=== PATIENT | male | born 1930 | race Caucasian/White ===

== ENCOUNTER 2016-11-14 22:08 | Inpatient (IN) | payer MEDICARE, MEDICAID ==
[~2016-11-14] VITALS: Ht 167.6 cm; Wt 79.4 kg
[2016-11-14 22:01] VITALS: BP 131/66
[2016-11-14] MEDS ORDERED: Acetaminophen 500mg (ES) tab ORAL ONE (22:15)
--- NOTE | 2016-11-14 22:18 | Emergency Room Report ---
History of Present Illness General Chief Complaint: Dyspnea/Respdistress Source: Patient, Family Member, EMS Present Illness HPI Is an 86-year-old [place] speaking male with a history diabetes and hypertension. He also has a coronary disease. He presents with chief complaint of shortness of breath and fever and chills. Onset acutely today at 3 PM. Prescribe shaking chills and body pain. [place] short of breath. No chest pain. No cough. No nausea or vomiting. No diarrhea. [place] weak. Did not get flu shot. Allergies: Coded Allergies: No Known Allergies (Verified , 02/18/10) Patient History Past Medical History: see triage record, old chart reviewed, DM, HTN, CAD Past Surgical History: CABG, other Pertinent Family History: none Social History: Denies: smoking Immunizations: other Reviewed Nursing Documentation: PMH: Agreed, PSxH: Agreed Nursing Documentation-PMH Hx Cardiac Problems: Yes Hx Hypertension: Yes Hx Asthma: Yes Hx Diabetes: Yes Review of Systems Constitutional: Reports: fever, malaise, weakness Eye: Denies: blurred vision, eye pain ENT: Denies: ear pain, nose congestion, throat swelling Respiratory: Reports: shortness of breath Cardiovascular: Denies: chest pain, palpitations Gastrointestinal: Denies: abdominal pain, diarrhea, nausea, vomiting Musculoskeletal: Denies: back pain, joint pain Skin: Denies: rash Neurological: Denies: headache, numbness Endocrine: Denies: increased thirst, increased urine Hematologic/Lymphatic: Denies: easy bruising All Other Systems: negative except mentioned in HPI Physical Exam Vital Signs Date Time Temp Pulse Resp B/P Pulse Ox O2 Delivery O2 Flow Rate FiO2 11/14/16 21:55 99.7 66 18 131/66 98 Non-Rebreather 15.0 11/14/16 22:01 94 vitals with low-grade fever Sp02 EP Interpretation: reviewed, normal General Appearance: no apparent distress, alert, mild distress - Ill-appearing , obese Head: normocephalic, atraumatic Eyes: bilateral eye EOMI, bilateral eye PERRL ENT: hearing grossly normal, normal pharynx Neck: full range of motion, supple, no meningismus Respiratory: chest non-tender, lungs clear, normal breath sounds Cardiovascular #1: regular rate, rhythm, no murmur Gastrointestinal: normal bowel sounds, non tender, no mass, no organomegaly, no bruit, non-distended Musculoskeletal: back normal, gait/station normal, normal range of motion Psychiatric: mood/affect normal Skin: warm/dry Medical Decision Making Diagnostic Impression: Primary Impression: Sepsis Qualified Codes: A41.9 - Sepsis, unspecified organism Additional Impressions: Pneumonia Qualified Codes: J18.9 - Pneumonia, unspecified organism Chronic kidney disease Qualified Codes: N18.9 - Chronic kidney disease, unspecified Hyperglycemia due to type 2 diabetes mellitus Qualified Codes: E11.65 - Type 2 diabetes mellitus with hyperglycemia ER Course Patient presents with sepsis secondary to pneumonia. May have influenza since it is the season. Influenza test is negative. He felt better now. Lactic acid coming down. Mentation normal. Will admit. Lab Results Impression labs show leukocytosis EKG Diagnostic Results Rate: normal Rhythm: NSR ST Segments: no acute changes Rhythm Strip Diag. Results EP Interpretation: yes Rate: 80 Rhythm: NSR, no PVC's, no ectopy Chest X-Ray Diagnostic Results EP Interpretation: Yes Findings: no effusion, no pneumothorax, other - Right lower lobe infiltrate Number of Views: 1 Last Vital Signs Date Time Temp Pulse Resp B/P Pulse Ox O2 Delivery O2 Flow Rate FiO2 11/14/16 22:01 99.7 66 18 131/66 94 Room Air 11/14/16 22:01 94 11/14/16 21:55 15.0 Status: improved Disposition: ADMITTED INPATIENT Condition: Serious DONALD PETERSEN M.D. Nov 14, 2016 22:18
[2016-11-14 22:38] LABS: MEAN CORPUSCULAR HGB CONC 33.3 G/DL (32.0-36.0); MEAN CORPUSCULAR VOLUME 93 FL (80-99); MEAN PLATELET VOLUME 9.2 FL (6.5-10.1); PLATELET COUNT 178 K/UL (150-450); RED BLOOD COUNT 4.15 M/UL (4.70-6.10); RED CELL DISTRIBUTION WIDTH 12.6 % (11.6-14.8); WHITE BLOOD COUNT 19.5 K/UL (4.8-10.8)
[2016-11-14 22:47] LABS: PROTHROMBIN TIME 10.3 SEC (9.30-11.50)
[2016-11-14 22:53] LABS: TROPONIN I < 0.30 ng/mL (<=0.30)
[2016-11-14 23:00] VITALS: BP 133/49
[2016-11-14 23:02] LABS: REFLEX LACTIC ACID YES OR NO YES
[2016-11-14 23:09] LABS: ALANINE AMINOTRANSFERASE 31 U/L (3-41); ALBUMIN/GLOBULIN RATIO 1.4 (1.0-2.7); ANION GAP 21 (5-15); ASPARTATE AMINO TRANSFERASE 26 U/L (5-40); CALCIUM 9.3 mg/dL (8.6-10.2); CARBON DIOXIDE 20 mEQ/L (20-30); CHLORIDE 92 mEQ/L (98-107); CREATININE 1.9 mg/dL (0.7-1.2); HEMOLYSIS 9; SODIUM 133 mEQ/L (135-145)
[2016-11-14 23:16] LABS: APPEARANCE,URINE CLEAR; KETONES,URINE NEGATIVE (NEGATIVE); LEUKOCYTE ESTERASE ,URINE 1+ (NEGATIVE); NITRITE,URINE NEGATIVE (NEGATIVE); PH,URINE 5 (4.5-8.0); PROTEIN,URINE 1+ (NEGATIVE); UROBILINOGEN,URINE NORMAL MG/DL (0.0-1.0)
[2016-11-14 23:19] LABS: CKMB 1.5 ng/mL (< 6.7)
[2016-11-14] MEDS ORDERED: cefTRIAXone 1 GM in NS 55 ML IVPB ONE (23:30)
[2016-11-14] MEDS ORDERED: Azithromycin 250mg tab ORAL ONE (23:30)
[2016-11-14 23:36] LABS: BAND NEUTROPHILS % (MANUAL) 7 % (0-8); LYMPHOCYTES % (MANUAL) 3 % (20-45); NEUTROPHILS % (MANUAL) 87 % (45-75); TOTAL CELLS COUNTED 100
[2016-11-14 23:37] LABS: BASOPHILS % (MANUAL) 0 % (0-2); EOSINOPHILS % (MANUAL) 0 % (0-3); PLATELET ESTIMATE ADEQUATE
[2016-11-14 23:38] LABS: PLATELET MORPHOLOGY NORMAL; POLYCHROMASIA 1+
[2016-11-15] VITALS: BP 116/43
[2016-11-15 01:00] VITALS: BP 100/55
[2016-11-15 04:00] VITALS: BP 108/56
[2016-11-15] MEDS ORDERED: D5 1/2NS 1,000 ML IV SCH (04:15)
[2016-11-15] MEDS ORDERED: cefTRIAXone 1 GM in D5W 55 ML IVPB SCH (04:15)
[2016-11-15] MEDS ORDERED: cefTRIAXone 1 GM in D5W 50 ML IVPB SCH (04:30)
[2016-11-15] MEDS: NovoLOG Insulin Flexpen SUBQ SCH ×4 (07:35→19:42)
[2016-11-15 08:00] VITALS: BP 107/60
[2016-11-15] MEDS: Azithromycin 250mg tab ORAL SCH ×2 (09:58→16:57)
[2016-11-15] MEDS: D5NS 1,000 ML IV SCH ×2 (09:59→21:58)
[2016-11-15] MEDS: Heparin 5000 units/ml inj SUBQ SCH ×2 (10:01→19:42)
[2016-11-15 10:05] LABS: MEAN CORPUSCULAR HEMOGLOBIN 30.6 PG (27.0-31.0); MEAN CORPUSCULAR HGB CONC 33.5 G/DL (32.0-36.0); MEAN CORPUSCULAR VOLUME 91 FL (80-99); MEAN PLATELET VOLUME 10.2 FL (6.5-10.1); PLATELET COUNT 137 K/UL (150-450); RED CELL DISTRIBUTION WIDTH 12.5 % (11.6-14.8); WHITE BLOOD COUNT 18.5 K/UL (4.8-10.8)
[2016-11-15 10:17] LABS: ALANINE AMINOTRANSFERASE 23 U/L (3-41); ALBUMIN/GLOBULIN RATIO 1.3 (1.0-2.7); ANION GAP 13 (5-15); ASPARTATE AMINO TRANSFERASE 24 U/L (5-40); CALCIUM 8.5 mg/dL (8.6-10.2); CARBON DIOXIDE 21 mEQ/L (20-30); CHLORIDE 98 mEQ/L (98-107); CREATININE 1.7 mg/dL (0.7-1.2); HEMOLYSIS 52; MAGNESIUM 1.8 mg/dL (1.7-2.5); POTASSIUM 4.7 mEQ/L (3.4-4.9); SODIUM 132 mEQ/L (135-145); TOTAL PROTEIN 6.1 g/dL (6.6-8.7)
[2016-11-15 10:33] LABS: BAND NEUTROPHILS % (MANUAL) 2 % (0-8); BASOPHILS % (MANUAL) 0 % (0-2); EOSINOPHILS % (MANUAL) 1 % (0-3); HYPOCHROMASIA 1+; LYMPHOCYTES % (MANUAL) 4 % (20-45); NEUTROPHILS % (MANUAL) 86 % (45-75); PLATELET ESTIMATE ADEQUATE; PLATELET MORPHOLOGY NORMAL; TOTAL CELLS COUNTED 100
--- NOTE | 2016-11-15 11:30 | Diagnostic Imaging Report ---
Indication: Dyspnea Comparison: 02/18/10 A single view chest radiograph was obtained. Findings: There is infiltrate versus atelectasis involving the right lung base. In addition pulmonary vascularity appears prominent. Sternotomy is noted. Heart size is normal. The bones are osteopenic. Impression: Right basilar infiltrate versus atelectasis. Borderline congestive heart failure
[2016-11-15 12:00] VITALS: BP 103/62
[2016-11-15] MEDS ORDERED: Promethazine/Codeine 5ml UD ORAL PRN (15:45)
--- NOTE | 2016-11-15 15:58 | Consultation ---
History of Present Illness General Date patient seen: Nov 15, 2016 Chief Complaint: Dyspnea/Respdistress Referring physician: Dr. grande Reason for Consultation: dysnpea Present Illness HPI 86-year-old Welsh speaking male with a history COPD, diabetes and hypertension and coronary disease. He was brought in by paramedics with chief complaint of shortness of breath and fever and chills. With onset acutely yesterday at 3 PM. Prescribe shaking chills and body pain. Patient was diagnosed with sepsis and pneumonia and admitted for further evaluation. Allergies: Coded Allergies: No Known Allergies (Verified , 02/18/10) Patient History Healthcare decision maker Resuscitation status Full Code Advanced Directive on File Past Medical/Surgical History Past Medical/Surgical History: (1) COPD (chronic obstructive pulmonary disease) (2) HTN (hypertension) (3) CAD (coronary artery disease) Review of Systems All Other Systems: negative except mentioned in HPI Physical Exam General Appearance: WD/WN Lines, tubes and drains: peripheral, central line HEENT: normocephalic, atraumatic Neck: non-tender, normal alignment Respiratory/Chest: chest wall non-tender, lungs clear Cardiovascular/Chest: normal peripheral pulses, normal rate Abdomen: normal bowel sounds Genitourinary/Rectal: normal genital exam Last 24 Hour Vital Signs Date Time Temp Pulse Resp B/P Pulse Ox O2 Delivery O2 Flow Rate FiO2 11/15/16 12:00 98.6 70 19 103/62 95 Nasal Cannula 11/15/16 08:00 97.3 71 20 107/60 95 Nasal Cannula 3.0 11/15/16 07:21 96 Nasal Cannula 2.0 28 11/15/16 07:20 Nasal Cannula 2.0 28 11/15/16 04:00 97.4 68 20 108/56 93 Nasal Cannula 2.0 11/15/16 01:00 97.9 76 20 100/55 93 Nasal Cannula 2.0 11/15/16 00:28 99.4 78 25 116/43 95 Nasal Cannula 2.0 94 11/15/16 00:00 78 25 116/43 95 Nasal Cannula 2.0 11/14/16 23:18 99.4 11/14/16 23:00 88 26 133/49 93 Nasal Cannula 2.0 11/14/16 22:01 99.7 66 18 131/66 94 Room Air 1/16/17 22:01 66 18 Room Air 94 11/14/16 21:55 99.7 66 18 131/66 98 Non-Rebreather 15.0 Intake and Output 11/14/16 11/15/16 19:00 07:00 Intake Total 2055 ml Output Total 650 ml Balance 1405 ml Intake Oral 0 ml IV Total 2055 ml Output Urine Total 650 ml # Voids 1 Laboratory Tests Test 11/14/16 22:25 11/14/16 23:00 11/14/16 23:33 11/15/16 09:40 White Blood Count 19.5 K/UL (4.8-10.8) H 18.5 K/UL (4.8-10.8) H Red Blood Count 4.15 M/UL (4.70-6.10) L 3.60 M/UL (4.70-6.10) L Hemoglobin 12.9 G/DL (14.2-18.0) L 11.0 G/DL (14.2-18.0) L Hematocrit 38.6 % (42.0-52.0) L 32.9 % (42.0-52.0) L Mean Corpuscular Volume 93 FL (80-99) 91 FL (80-99) Mean Corpuscular Hemoglobin 31.0 PG (27.0-31.0) 30.6 PG (27.0-31.0) Mean Corpuscular Hemoglobin Concent 33.3 G/DL (32.0-36.0) 33.5 G/DL (32.0-36.0) Red Cell Distribution Width 12.6 % (11.6-14.8) 12.5 % (11.6-14.8) Platelet Count 178 K/UL (150-450) 137 K/UL (150-450) L Mean Platelet Volume 9.2 FL (6.5-10.1) 10.2 FL (6.5-10.1) H Neutrophils (%) (Auto) % (45.0-75.0) % (45.0-75.0) Lymphocytes (%) (Auto) % (20.0-45.0) % (20.0-45.0) Monocytes (%) (Auto) % (1.0-10.0) % (1.0-10.0) Eosinophils (%) (Auto) % (0.0-3.0) % (0.0-3.0) Basophils (%) (Auto) % (0.0-2.0) % (0.0-2.0) Differential Total Cells Counted 100 100 Neutrophils % (Manual) 87 % (45-75) H 86 % (45-75) H Lymphocytes % (Manual) 3 % (20-45) L 4 % (20-45) L Monocytes % (Manual) 3 % (1-10) 7 % (1-10) Eosinophils % (Manual) 0 % (0-3) 1 % (0-3) Basophils % (Manual) 0 % (0-2) 0 % (0-2) Band Neutrophils 7 % (0-8) 2 % (0-8) Platelet Estimate Adequate Adequate Platelet Morphology Normal Normal Polychromasia 1+ Prothrombin Time 10.3 SEC (9.30-11.50) Prothromb Time International Ratio 1.0 (0.9-1.1) Activated Partial Thromboplast Time 29 SEC (23-33) Sodium Level 133 mEQ/L (135-145) L 132 mEQ/L (135-145) L Potassium Level 5.0 mEQ/L (3.4-4.9) H 4.7 mEQ/L (3.4-4.9) Chloride Level 92 mEQ/L (98-107) L 98 mEQ/L (98-107) Carbon Dioxide Level 20 mEQ/L (20-30) 21 mEQ/L (20-30) Anion Gap 21 (5-15) H 13 (5-15) Blood Urea Nitrogen 29 mg/dL (7-23) H 26 mg/dL (7-23) H Creatinine 1.9 mg/dL (0.7-1.2) H 1.7 mg/dL (0.7-1.2) H Estimat Glomerular Filtration Rate mL/min (>60) mL/min (>60) Glucose Level 180 mg/dL (74-106) H 134 mg/dL (74-106) H Lactic Acid Level 3.00 mmol/L (0.66-2.22) H 2.80 mmol/L (0.66-2.22) H Calcium Level 9.3 mg/dL (8.6-10.2) 8.5 mg/dL (8.6-10.2) L Total Bilirubin 0.4 mg/dL (0.0-1.2) 0.4 mg/dL (0.0-1.2) Aspartate Amino Transf (AST/SGOT) 26 U/L (5-40) 24 U/L (5-40) Alanine Aminotransferase (ALT/SGPT) 31 U/L (3-41) 23 U/L (3-41) Alkaline Phosphatase 66 U/L (40-129) 54 U/L (40-129) Total Creatine Kinase 106 U/L (38-174) Creatine Kinase MB 1.5 ng/mL (< 6.7) Creatine Kinase MB Relative Index 1.4 Troponin I < 0.30 ng/mL (<=0.30) Total Protein 7.0 g/dL (6.6-8.7) 6.1 g/dL (6.6-8.7) L Albumin 4.1 g/dL (3.5-5.2) 3.5 g/dL (3.5-5.2) Globulin 2.9 g/dL 2.6 g/dL Albumin/Globulin Ratio 1.4 (1.0-2.7) 1.3 (1.0-2.7) Urine Color Yellow Urine Appearance Clear Urine pH 5 (4.5-8.0) Urine Specific [place] 1.015 (1.005-1.035) Urine Protein 1+ (NEGATIVE) H Urine Glucose (UA) 4+ (NEGATIVE) H Urine Ketones Negative (NEGATIVE) Urine Occult Blood 4+ (NEGATIVE) H Urine Nitrite Negative (NEGATIVE) Urine Bilirubin Negative (NEGATIVE) Urine Urobilinogen Normal MG/DL (0.0-1.0) Urine Leukocyte Esterase 1+ (NEGATIVE) H Urine RBC 2-4 /HPF (0 - 0) H Urine WBC 2-4 /HPF (0 - 0) Urine Squamous Epithelial Cells None /LPF (NONE/OCC) Urine Bacteria None /HPF (NONE) Hypochromasia 1+ Phosphorus Level 3.0 mg/dL (2.5-4.8) Magnesium Level 1.8 mg/dL (1.7-2.5) Microbiology Date/Time Source Procedure Growth Status 11/14/16 23:45 Nasal Nares Influenza Types A,B Antigen (FRANCHESCA) - Final Complete Height (Feet): 5 Height (Inches): 6.00 Weight (Pounds): 175 Medications Current Medications Medications (Trade) Dose Ordered Sig/Nathan Route PRN Reason Start Time Stop Time Status Last Admin Dose Admin Acetaminophen (Tylenol) 650 mg Q6H PRN ORAL Mild Pain/Temp > 100.5 11/15/16 04:15 12/15/16 04:14 Albuterol/ Ipratropium (DuoNeb 0.5-3(2.5)mg/3ml) 3 ml Q6HRT HHN 11/15/16 19:00 11/20/16 18:59 UNV Azithromycin (Zithromax) 250 mg BID ORAL 11/15/16 09:00 11/22/16 08:59 11/15/16 09:58 Ceftriaxone Sodium 1 gm/ Dextrose 50 ml @ 100 mls/hr Q24H IVPB 11/15/16 23:00 11/22/16 22:59 Dextrose (Dextrose 50%) STAT PRN IV Hypoglycemia 11/15/16 04:15 12/15/16 04:14 Dextrose/Sodium Chloride (D5ns) 1,000 ml @ 75 mls/hr [id number] IV 11/15/16 08:15 12/15/16 08:14 11/15/16 09:59 Heparin Sodium (Porcine) 5000 units 5,000 units EVERY 12 HOURS SUBQ 11/15/16 09:00 12/15/16 08:59 11/15/16 10:01 Insulin Aspart (NovoLOG) BEFORE MEALS AND HS SUBQ 11/15/16 06:30 12/15/16 06:29 11/15/16 07:35 Promethazine HCl/ Codeine (Phenergan with Codeine) 5 ml Q4H PRN ORAL For Cough 11/15/16 15:45 12/15/16 15:44 UNV Theophylline (Soham-Dur) 100 mg EVERY 12 HOURS ORAL 11/15/16 21:00 12/15/16 20:59 UNV Assessment/Plan Problem List: (1) Pneumonia ICD Codes: J18.9 - Pneumonia, unspecified organism SNOMED: 815433566 Qualifiers: Qualified Codes: J18.9 - Pneumonia, unspecified organism (2) Sepsis ICD Codes: A41.9 - Sepsis, unspecified organism SNOMED: 50861291 Qualifiers: Qualified Codes: A41.9 - Sepsis, unspecified organism (3) COPD (chronic obstructive pulmonary disease) ICD Codes: J44.9 - Chronic obstructive pulmonary disease, unspecified SNOMED: 04421344 Qualifiers: Qualified Codes: J44.1 - Chronic obstructive pulmonary disease with (acute) exacerbation (4) CAD (coronary artery disease) ICD Codes: I25.10 - Atherosclerotic heart disease of [place] coronary artery without angina pectoris SNOMED: 85535376 (5) HTN (hypertension) ICD Codes: I10 - Essential (primary) hypertension SNOMED: 88377067 Assessment/Plan check sputum respiratory treatment chest pt incentive spirometry continue abx cxr in a few days dvt prophylaxis OLIVIA WALKER Nov 15, 2016 15:58
[2016-11-15 16:00] VITALS: BP 121/62
[2016-11-15] MEDS ORDERED: guaiFENesin w/Codeine 5ml Liq ud ORAL PRN (19:00)
[2016-11-15] MEDS: Zolpidem 5mg tab ORAL PRN (19:35)
[2016-11-15] MEDS: Theophylline ER 100mg ORAL SCH (19:35)
[2016-11-15] MEDS: DuoNeb 0.5-3(2.5)mg/3ml neb HHN SCH (20:09)
[2016-11-15] MEDS: cefTRIAXone 1 GM in D5W 50 ML IVPB SCH (22:00)
[2016-11-16] VITALS: BP 107/54
--- NOTE | 2016-11-16 00:27 | History and Physical Report ---
DATE OF ADMISSION: 11/14/[address] Medel. CHIEF COMPLAINT: The patient is an 86-year-old Panamanian-speaking white male, who presents with complaint of fever, chills, and cough for one day. HISTORY OF PRESENT ILLNESS: The patient is a Panamanian-speaking only. History and physical was obtained from the patient's chart. The patient attempted to call his daughter who is not available. The patient presented to [facility] complaining of 1-day history of fevers and chills. The patient also has a nonproductive cough. The patient began to experience shortness of breath. The patient was admitted for shortness of breath to rule out pneumonia. PAST MEDICAL HISTORY: Significant for, 1. Chronic obstructive pulmonary disease. 2. Diabetes type 2. 3. Hypertension. 4. Coronary artery disease. PAST SURGICAL HISTORY: Significant for coronary artery bypass graft. CURRENT MEDICATIONS: Unknown. ALLERGIES: No known drug allergies. SOCIAL HISTORY: The patient is and has a grown daughter. The patient denies smoking or alcohol use. REVIEW OF SYSTEMS: Constitutional: The patient denies weight loss or weight gain. The patient complains of subjective fevers and chills as above. HEENT: The patient denies ear or throat pain. The patient denies headache. Cardiovascular: The patient denies palpitations or chest pain. Chest: The patient denies wheezes. The patient does complain of shortness of breath. Abdomen: The patient denies nausea, vomiting, diarrhea, or constipation. Genitourinary: The patient denies dysuria or increased frequency of urination. Neuromuscular: The patient denies seizures or generalized weakness. PHYSICAL EXAMINATION: VITAL SIGNS: Temperature 97.4 degrees, respirations 20, pulse 68, and blood pressure 108/60. GENERAL: The patient is a well-developed, well-nourished white male, in no apparent distress. HEENT: Eyes, pupils are equal and responsive to light and accommodation. Extraocular movements are intact. NECK: Supple without lymphadenopathy. CHEST: Few scattered wheezes at bilateral bases. Otherwise, without rales. CARDIOVASCULAR: Regular rate and rhythm. S1 and S2. No murmurs, rubs, or gallops. ABDOMEN: Soft, nontender, and nondistended. Positive bowel sounds. No evidence of hepatosplenomegaly. Currently, no rebound or guarding noted. EXTREMITIES: No clubbing, cyanosis, or edema. RECTAL/GENITAL: Refused. NEUROLOGIC: Cranial nerves II through XII are grossly intact without focal deficits. Motor strength is 5/5 bilateral. Deep tendon reflexes are 2+ plantar. LABORATORY STUDIES: WBC 19.5, hemoglobin 12.9, hematocrit 38.6, and platelets 138,000. Sodium 133, potassium 5.0, chloride 92, CO2 20, BUN 29, creatinine 1.9, and glucose 180. Chest x-ray revealed a right basilar infiltrates. ASSESSMENT: This is an 86-year-old white male. 1. Right lower lobe pneumonia. 2. Leukocytosis. 3. Renal insufficiency. 4. Chronic obstructive pulmonary disease. 5. Diabetes type 2. 6. Hypertension. 7. Coronary artery disease. TREATMENT: 1. Right lower lobe pneumonia. A Pulmonary consultation has been obtained with Dr. Srini Mckay. The patient is currently placed empirically on ceftriaxone and azithromycin intravenously. His sputum culture is pending. We will follow recommendations of Pulmonary. 2. Leukocytosis secondary to right lower lobe pneumonia. as above. 3. Renal insufficiency. The patient is currently tolerating intravenous fluids. We will follow serial BUN and creatinine. 4. Chronic obstructive pulmonary disease. The patient is currently receiving DuoNeb as needed for wheezing. 5. Diabetes type 2. The patient is currently on a NovoLog sliding scale. 6. Hypertension. The patient is currently normotensive. The patient will be started on antihypertensive medication if hypertension occurs. Lisandro Munguia M.D. DR: VENKATESH JOB#: [id number] CC:
[2016-11-16] MEDS: DuoNeb 0.5-3(2.5)mg/3ml neb HHN SCH ×4 (01:15→19:05)
[2016-11-16 04:00] VITALS: BP 115/54
[2016-11-16] MEDS: NovoLOG Insulin Flexpen SUBQ SCH ×4 (06:43→21:00)
[2016-11-16 07:19] LABS: BASOPHILS % (AUTO) 0.6 % (0.0-2.0); EOSINOPHILS % (AUTO) 0.9 % (0.0-3.0); LYMPHOCYTES % (AUTO) 4.6 % (20.0-45.0); MEAN CORPUSCULAR HEMOGLOBIN 31.4 PG (27.0-31.0); MEAN CORPUSCULAR HGB CONC 34.1 G/DL (32.0-36.0); MEAN CORPUSCULAR VOLUME 92 FL (80-99); MEAN PLATELET VOLUME 9.8 FL (6.5-10.1); MONOCYTES % (AUTO) 9.7 % (1.0-10.0); NEUTROPHILS % (AUTO) 84.2 % (45.0-75.0); PLATELET COUNT 130 K/UL (150-450); RED BLOOD COUNT 3.17 M/UL (4.70-6.10); RED CELL DISTRIBUTION WIDTH 12.8 % (11.6-14.8); WHITE BLOOD COUNT 11.7 K/UL (4.8-10.8)
[2016-11-16 07:30] LABS: ANION GAP 16 (5-15); CALCIUM 8.6 mg/dL (8.6-10.2); CARBON DIOXIDE 22 mEQ/L (20-30); CHLORIDE 101 mEQ/L (98-107); CREATININE 1.9 mg/dL (0.7-1.2); HEMOLYSIS 4; POTASSIUM 4.1 mEQ/L (3.4-4.9); SODIUM 139 mEQ/L (135-145)
[2016-11-16 08:00] VITALS: BP 95/53
[2016-11-16] MEDS: Heparin 5000 units/ml inj SUBQ SCH ×2 (09:00→21:00)
[2016-11-16] MEDS: Theophylline ER 100mg ORAL SCH ×2 (09:42→20:34)
[2016-11-16] MEDS: Azithromycin 250mg tab ORAL SCH (09:42)
[2016-11-16] MEDS: D5NS 1,000 ML IV SCH (11:19)
--- NOTE | 2016-11-16 11:19 | Internal Med Progress Note ---
Subjective Date of Service: Nov 16, 2016 Physician Name Lea Griffin Attending Physician Tobin Medel MD Current Medications Medications (Trade) Dose Ordered Sig/Nathan Route PRN Reason Start Time Stop Time Status Last Admin Dose Admin Acetaminophen (Tylenol) 650 mg Q6H PRN ORAL Mild Pain/Temp > 100.5 11/15/16 04:15 12/15/16 04:14 Albuterol/ Ipratropium (DuoNeb 0.5-3(2.5)mg/3ml) 3 ml Q6HRT HHN 11/15/16 19:00 11/20/16 18:59 11/16/16 08:02 Azithromycin (Zithromax) 250 mg BID ORAL 11/15/16 09:00 11/22/16 08:59 11/16/16 09:42 Ceftriaxone Sodium 1 gm/ Dextrose 50 ml @ 100 mls/hr Q24H IVPB 11/15/16 23:00 11/22/16 22:59 11/15/16 22:00 Dextrose (Dextrose 50%) STAT PRN IV Hypoglycemia 11/15/16 04:15 12/15/16 04:14 Dextrose/Sodium Chloride (D5ns) 1,000 ml @ 75 mls/hr [id number] IV 11/15/16 08:15 12/15/16 08:14 11/15/16 21:58 Guaifenesin/ Codeine Phosphate (Robitussin with codeine) 5 ml Q6H PRN ORAL For Cough 11/15/16 19:00 12/15/16 18:59 Heparin Sodium (Porcine) 5000 units 5,000 units EVERY 12 HOURS SUBQ 11/15/16 09:00 12/15/16 08:59 11/15/16 10:01 Insulin Aspart (NovoLOG) BEFORE MEALS AND HS SUBQ 11/15/16 06:30 12/15/16 06:29 11/16/16 06:43 Sennosides (Senokot) 34.4 mg DAILY PRN ORAL Constipation 11/15/16 18:45 12/15/16 18:44 11/15/16 19:35 Theophylline (Soham-Dur) 100 mg EVERY 12 HOURS ORAL 11/15/16 21:00 12/15/16 20:59 11/16/16 09:42 Zolpidem Tartrate (Ambien) 5 mg HSPRN PRN ORAL Insomnia 11/15/16 19:30 12/15/16 19:29 11/15/16 19:35 Allergies: Coded Allergies: No Known Allergies (Verified , 02/18/10) ROS Limited/Unobtainable: No Constitutional: Reports: no symptoms HEENT: Reports: no symptoms Cardiovascular: Reports: no symptoms Respiratory: Reports: shortness of breath Gastrointestinal/Abdominal: Reports: no symptoms Genitourinary: Reports: no symptoms Neurologic/Psychiatric: Reports: no symptoms Subjective 86 YO M admitted with shortness of breath; now pneumonia. Cover for Int Med- Dr Medel. C/O cough Objective Last Vital Signs Date Time Temp Pulse Resp B/P Pulse Ox O2 Delivery O2 Flow Rate FiO2 11/16/16 08:00 97.3 63 20 95/53 95 Nasal Cannula 3.0 11/16/16 07:53 28 General Appearance: WD/WN, alert, mild distress EENT: PERRL/EOMI, normal ENT inspection Neck: non-tender, normal alignment, supple Cardiovascular: normal peripheral pulses, normal rate, regular rhythm, no gallop/murmur, no JVD Respiratory/Chest: chest wall non-tender, crackles/rales, rhonchi - bilaterally , expiratory wheezing Abdomen: normal bowel sounds, non tender, soft, no organomegaly, no mass Extremities: normal range of motion 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, no motor/sensory deficits Skin: normal pigmentation, warm/dry Laboratory Tests Test 11/16/16 06:40 White Blood Count 11.7 K/UL (4.8-10.8) H Red Blood Count 3.17 M/UL (4.70-6.10) L Hemoglobin 9.9 G/DL (14.2-18.0) L Hematocrit 29.1 % (42.0-52.0) L Mean Corpuscular Volume 92 FL (80-99) Mean Corpuscular Hemoglobin 31.4 PG (27.0-31.0) H Mean Corpuscular Hemoglobin Concent 34.1 G/DL (32.0-36.0) Red Cell Distribution Width 12.8 % (11.6-14.8) Platelet Count 130 K/UL (150-450) L Mean Platelet Volume 9.8 FL (6.5-10.1) Neutrophils (%) (Auto) 84.2 % (45.0-75.0) H Lymphocytes (%) (Auto) 4.6 % (20.0-45.0) L Monocytes (%) (Auto) 9.7 % (1.0-10.0) Eosinophils (%) (Auto) 0.9 % (0.0-3.0) Basophils (%) (Auto) 0.6 % (0.0-2.0) Sodium Level 139 mEQ/L (135-145) Potassium Level 4.1 mEQ/L (3.4-4.9) Chloride Level 101 mEQ/L (98-107) Carbon Dioxide Level 22 mEQ/L (20-30) Anion Gap 16 (5-15) H Blood Urea Nitrogen 25 mg/dL (7-23) H Creatinine 1.9 mg/dL (0.7-1.2) H Estimat Glomerular Filtration Rate mL/min (>60) Glucose Level 149 mg/dL (74-106) H Lactic Acid Level 1.10 mmol/L (0.66-2.22) Calcium Level 8.6 mg/dL (8.6-10.2) Microbiology Date/Time Source Procedure Growth Status 11/14/16 22:30 Blood Blood Culture - Preliminary NO GROWTH AFTER 24 HOURS Resulted 11/14/16 22:25 Blood Blood Culture - Preliminary NO GROWTH AFTER 24 HOURS Resulted 11/14/16 23:45 Nasal Nares Influenza Types A,B Antigen (FRANCHESCA) - Final Complete Intake and Output 11/15/16 11/16/16 19:00 07:00 Intake Total 990 ml 1235 ml Output Total 550 ml Balance 990 ml 685 ml Intake Oral 240 ml 360 ml IV Total 750 ml 875 ml Output Urine Total 550 ml # Voids 2 5 # Bowel Movements 1 Assessment/Plan Problem List: (1) Diabetes mellitus Assessment & Plan: Continue novolog sliding scale. (2) Leukocytosis (3) Renal insufficiency Assessment & Plan: Continue IV fluids. (4) Cough (5) Shortness of breath (6) Pneumonia Assessment & Plan: Continue ceftriaxone. (7) COPD (chronic obstructive pulmonary disease) (8) HTN (hypertension) Assessment & Plan: Currently normotensive off meds. (9) CAD (coronary artery disease) Status: not improved LEA GRIFFIN Nov 16, 2016 11:18
[2016-11-16 12:02] VITALS: BP 99/46
[2016-11-16 16:00] VITALS: BP 106/51
[2016-11-16 19:00] VITALS: BP 114/57
[2016-11-16] MEDS: Zolpidem 5mg tab ORAL PRN (20:34)
[2016-11-16] MEDS: cefTRIAXone 1 GM in D5W 50 ML IVPB SCH (22:15)
[2016-11-17] VITALS (8 sets, daily range): BP systolic 112–137; BP diastolic 52–64
[2016-11-17] MEDS: DuoNeb 0.5-3(2.5)mg/3ml neb HHN SCH ×4 (01:15→18:29)
[2016-11-17] MEDS: NovoLOG Insulin Flexpen SUBQ SCH ×5 (06:30→20:26)
[2016-11-17 07:06] LABS: BASOPHILS % (AUTO) 0.8 % (0.0-2.0); EOSINOPHILS % (AUTO) 1.2 % (0.0-3.0); LYMPHOCYTES % (AUTO) 7.7 % (20.0-45.0); MEAN CORPUSCULAR HEMOGLOBIN 31.6 PG (27.0-31.0); MEAN CORPUSCULAR HGB CONC 33.9 G/DL (32.0-36.0); MEAN CORPUSCULAR VOLUME 93 FL (80-99); MEAN PLATELET VOLUME 9.6 FL (6.5-10.1); MONOCYTES % (AUTO) 9.4 % (1.0-10.0); NEUTROPHILS % (AUTO) 80.9 % (45.0-75.0); PLATELET COUNT 165 K/UL (150-450); RED BLOOD COUNT 3.52 M/UL (4.70-6.10); RED CELL DISTRIBUTION WIDTH 12.6 % (11.6-14.8)
[2016-11-17 07:27] LABS: ANION GAP 15 (5-15); CALCIUM 9.6 mg/dL (8.6-10.2); CARBON DIOXIDE 24 mEQ/L (20-30); CHLORIDE 102 mEQ/L (98-107); CREATININE 1.8 mg/dL (0.7-1.2); HEMOLYSIS 2; POTASSIUM 5.1 mEQ/L (3.4-4.9); SODIUM 141 mEQ/L (135-145)
[2016-11-17] MEDS: Heparin 5000 units/ml inj SUBQ SCH ×3 (09:00→20:26)
[2016-11-17] MEDS: Theophylline ER 100mg ORAL SCH ×2 (09:30→20:26)
[2016-11-17] MEDS: Azithromycin 250mg tab ORAL SCH (09:30)
--- NOTE | 2016-11-17 11:12 | Consultation ---
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 Assessment/Plan Renal insufficiency due to combination of ONE functioning kidney and underlying DM and HTN Proteinuria indicative of Nephropathy -. Right lower lobe pneumonia. -. Leukocytosis. -. Chronic obstructive pulmonary disease. -. Diabetes type 2. -. Hypertension. -. Coronary artery disease. Plan: Optimize cardiac and Pulmonary status- monitor renal parameters- Avoid Nephrotoxics- urine studies JESSENIA CAAL Nov 17, 2016 11:11
--- NOTE | 2016-11-17 16:11 | Internal Med Progress Note ---
Subjective Date of Service: Nov 17, 2016 Physician Name Lea Munguia Attending Physician Tobin Medel MD Current Medications Medications (Trade) Dose Ordered Sig/Nathan Route PRN Reason Start Time Stop Time Status Last Admin Dose Admin Acetaminophen (Tylenol) 650 mg Q6H PRN ORAL Mild Pain/Temp > 100.5 11/15/16 04:15 12/15/16 04:14 Albuterol/ Ipratropium (DuoNeb 0.5-3(2.5)mg/3ml) 3 ml Q6HRT HHN 11/15/16 19:00 11/20/16 18:59 11/17/16 14:05 Azithromycin (Zithromax) 250 mg DAILY ORAL 11/17/16 09:00 11/21/16 08:59 11/17/16 09:30 Ceftriaxone Sodium/Dextrose (Rocephin/D5W 50ml) 50 ml @ 100 mls/hr Q24H IVPB 11/15/16 23:00 11/22/16 22:59 11/16/16 22:15 Dextrose (Dextrose 50%) STAT PRN IV Hypoglycemia 11/15/16 04:15 12/15/16 04:14 Guaifenesin/ Codeine Phosphate (Robitussin with codeine) 5 ml Q6H PRN ORAL For Cough 11/15/16 19:00 12/15/16 18:59 11/17/16 09:30 Heparin Sodium (Porcine) 5000 units 5,000 units EVERY 12 HOURS SUBQ 11/15/16 09:00 12/15/16 08:59 11/15/16 10:01 Insulin Aspart (NovoLOG) BEFORE MEALS AND HS SUBQ 11/15/16 06:30 12/15/16 06:29 11/16/16 12:19 Sennosides (Senokot) 34.4 mg DAILY PRN ORAL Constipation 11/15/16 18:45 12/15/16 18:44 11/17/16 09:30 Theophylline (Soham-Dur) 100 mg EVERY 12 HOURS ORAL 11/15/16 21:00 12/15/16 20:59 11/17/16 09:30 Zolpidem Tartrate (Ambien) 5 mg HSPRN PRN ORAL Insomnia 11/15/16 19:30 12/15/16 19:29 11/16/16 20:34 Allergies: Coded Allergies: No Known Allergies (Verified , 02/18/10) ROS Limited/Unobtainable: No Constitutional: Reports: no symptoms HEENT: Reports: no symptoms Cardiovascular: Reports: no symptoms Respiratory: Reports: cough, shortness of breath Genitourinary: Reports: no symptoms Neurologic/Psychiatric: Reports: no symptoms Subjective 86 YO M admitted with shortness of breath; now pneumonia. Cover for Int [facility]- Dr Medel. C/O cough Objective Last Vital Signs Date Time Temp Pulse Resp B/P Pulse Ox O2 Delivery O2 Flow Rate FiO2 11/17/16 13:59 74 20 98 Room Air 11/17/16 12:00 97.9 137/55 11/17/16 08:00 2.0 11/17/16 01:24 28 Laboratory Tests Test 11/17/16 05:20 White Blood Count 12.0 K/UL (4.8-10.8) H Red Blood Count 3.52 M/UL (4.70-6.10) L Hemoglobin 11.1 G/DL (14.2-18.0) L Hematocrit 32.8 % (42.0-52.0) L Mean Corpuscular Volume 93 FL (80-99) Mean Corpuscular Hemoglobin 31.6 PG (27.0-31.0) H Mean Corpuscular Hemoglobin Concent 33.9 G/DL (32.0-36.0) Red Cell Distribution Width 12.6 % (11.6-14.8) Platelet Count 165 K/UL (150-450) Mean Platelet Volume 9.6 FL (6.5-10.1) Neutrophils (%) (Auto) 80.9 % (45.0-75.0) H Lymphocytes (%) (Auto) 7.7 % (20.0-45.0) L Monocytes (%) (Auto) 9.4 % (1.0-10.0) Eosinophils (%) (Auto) 1.2 % (0.0-3.0) Basophils (%) (Auto) 0.8 % (0.0-2.0) Sodium Level 141 mEQ/L (135-145) Potassium Level 5.1 mEQ/L (3.4-4.9) H Chloride Level 102 mEQ/L (98-107) Carbon Dioxide Level 24 mEQ/L (20-30) Anion Gap 15 (5-15) Blood Urea Nitrogen 23 mg/dL (7-23) Creatinine 1.8 mg/dL (0.7-1.2) H Estimat Glomerular Filtration Rate mL/min (>60) Glucose Level 142 mg/dL (74-106) H Calcium Level 9.6 mg/dL (8.6-10.2) Microbiology Date/Time Source Procedure Growth Status 11/14/16 22:30 Blood Blood Culture - Preliminary NO GROWTH AFTER 48 HOURS Resulted 11/14/16 22:25 Blood Blood Culture - Preliminary NO GROWTH AFTER 48 HOURS Resulted 11/15/16 21:00 Sputum Gram Stain - Final Resulted 11/15/16 21:00 Sputum Sputum Culture Pending Resulted 11/14/16 23:45 Nasal Nares Influenza Types A,B Antigen (FRANCHESCA) - Final Complete Intake and Output 11/16/16 11/17/16 19:00 07:00 Intake Total 990 ml 470 ml Output Total 300 ml 400 ml Balance 690 ml 70 ml Intake Oral 240 ml 420 ml IV Total 750 ml 50 ml Output Urine Total 300 ml 400 ml # Voids 4 # Bowel Movements 1 Objective General Appearance: WD/WN, alert, mild distress EENT: PERRL/EOMI, normal ENT inspection Neck: non-tender, normal alignment, supple Cardiovascular: normal peripheral pulses, normal rate, regular rhythm, no gallop/murmur, no JVD Respiratory/Chest: chest wall non-tender, crackles/rales, rhonchi - bilaterally , expiratory wheezing Abdomen: normal bowel sounds, non tender, soft, no organomegaly, no mass Extremities: normal range of motion 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 (2) Leukocytosis (3) Renal insufficiency Assessment & Plan: Solitary kidney.See nephrology note. D/C IV fluids. (4) Cough (5) Shortness of breath (6) Pneumonia Assessment & Plan: Continue ceftriaxone and azithromycin (7) COPD (chronic obstructive pulmonary disease) (8) HTN (hypertension) Assessment & Plan: Currently normotensive off meds. (9) CAD (coronary artery disease) Status: not improved Assessment/Plan Discussed with daughter, LEA Aaron Nov 17, 2016 16:11
--- NOTE | 2016-11-17 17:19 | Pulmonology Progress Note ---
Assessment/Plan Problems: (1) Pneumonia (2) Sepsis (3) COPD (chronic obstructive pulmonary disease) (4) CAD (coronary artery disease) (5) HTN (hypertension) Assessment/Plan improving continue antibioitics titrate fio2 to sat of 92% chest pt incentive spirometry check sputum Subjective ROS Limited/Unobtainable: No Interval Events: later entery for 11/16/2016, less cough, less short of breath Allergies: Coded Allergies: No Known Allergies (Verified , 02/18/10) Objective Last 24 Hour Vital Signs Date Time Temp Pulse Resp B/P Pulse Ox O2 Delivery O2 Flow Rate FiO2 11/17/16 16:00 97.6 82 20 130/64 100 Room Air 11/17/16 13:59 74 20 98 Room Air 11/17/16 13:49 70 20 93 Room Air 11/17/16 12:00 97.9 70 22 137/55 93 Room Air 11/17/16 08:00 98.1 80 16 112/62 96 Nasal Cannula 2.0 11/17/16 07:58 68 18 98 Room Air 11/17/16 07:50 Room Air 11/17/16 07:49 95 Room Air 11/17/16 07:48 70 18 95 Room Air 11/17/16 04:00 97.7 73 20 122/57 92 Nasal Cannula 2.0 11/17/16 03:43 97.7 73 20 122/57 92 Room Air 11/17/16 01:24 69 16 100 Nasal Cannula 2.0 28 11/17/16 01:17 28 11/17/16 01:16 72 16 92 Nasal Cannula 2.0 28 11/17/16 00:17 97.7 69 19 117/55 95 Nasal Cannula 2.0 11/16/16 19:19 67 16 100 Nasal Cannula 2.0 28 11/16/16 19:07 91 Nasal Cannula 2.0 28 11/16/16 19:07 Nasal Cannula 2.0 28 11/16/16 19:06 68 16 91 Nasal Cannula 2.0 28 11/16/16 19:06 28 11/16/16 19:00 97.9 83 20 114/57 94 Room Air Intake and Output 11/16/16 11/17/16 19:00 07:00 Intake Total 990 ml 470 ml Output Total 300 ml 400 ml Balance 690 ml 70 ml Intake Oral 240 ml 420 ml IV Total 750 ml 50 ml Output Urine Total 300 ml 400 ml # Voids 4 # Bowel Movements 1 General Appearance: WD/WN HEENT: normocephalic, anicteric Respiratory/Chest: chest wall non-tender, accessory muscle use, crackles/rales Abdomen: normal bowel sounds, soft, non tender Genitourinary: normal external genitalia Extremities: no cyanosis Skin: no lesions Microbiology Date/Time Source Procedure Growth Status 11/14/16 22:30 Blood Blood Culture - Preliminary NO GROWTH AFTER 48 HOURS Resulted 11/14/16 22:25 Blood Blood Culture - Preliminary NO GROWTH AFTER 48 HOURS Resulted 11/15/16 21:00 Sputum Gram Stain - Final Resulted 11/15/16 21:00 Sputum Sputum Culture Pending Resulted 11/14/16 23:45 Nasal Nares Influenza Types A,B Antigen (FRANCHESCA) - Final Complete Laboratory Tests 11/17/16 05:20: White Blood Count 12.0H, Red Blood Count 3.52L, Hemoglobin 11.1L, Hematocrit 32.8L, Mean Corpuscular Volume 93, Mean Corpuscular Hemoglobin 31.6H, Mean Corpuscular Hemoglobin Concent 33.9, Red Cell Distribution Width 12.6, Platelet Count 165, Mean Platelet Volume 9.6, Neutrophils (%) (Auto) 80.9H, Lymphocytes ( %) (Auto) 7.7L, Monocytes (%) (Auto) 9.4, Eosinophils (%) (Auto) 1.2, Basophils (%) (Auto) 0.8, Sodium Level 141, Potassium Level 5.1H, Chloride Level 102, Carbon Dioxide Level 24, Anion Gap 15, Blood Urea Nitrogen 23, Creatinine 1.8H, Estimat Glomerular Filtration Rate , Glucose Level 142H, Calcium Level 9.6 Current Medications Medications (Trade) Dose Ordered Sig/Nathan Route PRN Reason Start Time Stop Time Status Last Admin Dose Admin Acetaminophen (Tylenol) 650 mg Q6H PRN ORAL Mild Pain/Temp > 100.5 11/15/16 04:15 12/15/16 04:14 Albuterol/ Ipratropium (DuoNeb 0.5-3(2.5)mg/3ml) 3 ml Q6HRT HHN 11/15/16 19:00 11/20/16 18:59 11/17/16 14:05 Azithromycin (Zithromax) 250 mg DAILY ORAL 11/17/16 09:00 11/21/16 08:59 11/17/16 09:30 Ceftriaxone Sodium/Dextrose (Rocephin/D5W 50ml) 50 ml @ 100 mls/hr Q24H IVPB 11/15/16 23:00 11/22/16 22:59 11/16/16 22:15 Dextrose (Dextrose 50%) STAT PRN IV Hypoglycemia 11/15/16 04:15 12/15/16 04:14 Guaifenesin/ Codeine Phosphate (Robitussin with codeine) 5 ml Q6H PRN ORAL For Cough 11/15/16 19:00 12/15/16 18:59 11/17/16 09:30 Heparin Sodium (Porcine) 5000 units 5,000 units EVERY 12 HOURS SUBQ 11/15/16 09:00 12/15/16 08:59 11/15/16 10:01 Insulin Aspart (NovoLOG) BEFORE MEALS AND HS SUBQ 11/15/16 06:30 12/15/16 06:29 11/16/16 12:19 Sennosides (Senokot) 34.4 mg DAILY PRN ORAL Constipation 11/15/16 18:45 12/15/16 18:44 11/17/16 09:30 Theophylline (Soham-Dur) 100 mg EVERY 12 HOURS ORAL 11/15/16 21:00 12/15/16 20:59 11/17/16 09:30 Zolpidem Tartrate (Ambien) 5 mg HSPRN PRN ORAL Insomnia 11/15/16 19:30 12/15/16 19:29 11/16/16 20:34 OLIVIA WALKER Nov 17, 2016 17:19
--- NOTE | 2016-11-17 17:20 | Pulmonology Progress Note ---
Assessment/Plan Problems: (1) Pneumonia (2) Sepsis (3) COPD (chronic obstructive pulmonary disease) (4) CAD (coronary artery disease) (5) HTN (hypertension) Assessment/Plan continuew to improve continue antibioitics titrate fio2 to sat of 92% chest pt incentive spirometry check sputum, still pending, Subjective ROS Limited/Unobtainable: No HEENT: Repors: no symptoms Respiratory: Reports: no symptoms Allergies: Coded Allergies: No Known Allergies (Verified , 02/18/10) Objective Last 24 Hour Vital Signs Date Time Temp Pulse Resp B/P Pulse Ox O2 Delivery O2 Flow Rate FiO2 11/17/16 16:00 97.6 82 20 130/64 100 Room Air 11/17/16 13:59 74 20 98 Room Air 11/17/16 13:49 70 20 93 Room Air 11/17/16 12:00 97.9 70 22 137/55 93 Room Air 11/17/16 08:00 98.1 80 16 112/62 96 Nasal Cannula 2.0 11/17/16 07:58 68 18 98 Room Air 11/17/16 07:50 Room Air 11/17/16 07:49 95 Room Air 11/17/16 07:48 70 18 95 Room Air 11/17/16 04:00 97.7 73 20 122/57 92 Nasal Cannula 2.0 11/17/16 03:43 97.7 73 20 122/57 92 Room Air 11/17/16 01:24 69 16 100 Nasal Cannula 2.0 28 11/17/16 01:17 28 11/17/16 01:16 72 16 92 Nasal Cannula 2.0 28 11/17/16 00:17 97.7 69 19 117/55 95 Nasal Cannula 2.0 11/16/16 19:19 67 16 100 Nasal Cannula 2.0 28 11/16/16 19:07 91 Nasal Cannula 2.0 28 11/16/16 19:07 Nasal Cannula 2.0 28 11/16/16 19:06 68 16 91 Nasal Cannula 2.0 28 11/16/16 19:06 28 11/16/16 19:00 97.9 83 20 114/57 94 Room Air Intake and Output 11/16/16 11/17/16 19:00 07:00 Intake Total 990 ml 470 ml Output Total 300 ml 400 ml Balance 690 ml 70 ml Intake Oral 240 ml 420 ml IV Total 750 ml 50 ml Output Urine Total 300 ml 400 ml # Voids 4 # Bowel Movements 1 General Appearance: WD/WN Respiratory/Chest: chest wall non-tender, lungs clear Cardiovascular: normal peripheral pulses, normal rate Abdomen: normal bowel sounds, soft, non tender Extremities: no clubbing Microbiology Date/Time Source Procedure Growth Status 11/14/16 22:30 Blood Blood Culture - Preliminary NO GROWTH AFTER 48 HOURS Resulted 11/14/16 22:25 Blood Blood Culture - Preliminary NO GROWTH AFTER 48 HOURS Resulted 11/15/16 21:00 Sputum Gram Stain - Final Resulted 11/15/16 21:00 Sputum Sputum Culture Pending Resulted 11/14/16 23:45 Nasal Nares Influenza Types A,B Antigen (FRANCHESCA) - Final Complete Laboratory Tests 11/17/16 05:20: White Blood Count 12.0H, Red Blood Count 3.52L, Hemoglobin 11.1L, Hematocrit 32.8L, Mean Corpuscular Volume 93, Mean Corpuscular Hemoglobin 31.6H, Mean Corpuscular Hemoglobin Concent 33.9, Red Cell Distribution Width 12.6, Platelet Count 165, Mean Platelet Volume 9.6, Neutrophils (%) (Auto) 80.9H, Lymphocytes ( %) (Auto) 7.7L, Monocytes (%) (Auto) 9.4, Eosinophils (%) (Auto) 1.2, Basophils (%) (Auto) 0.8, Sodium Level 141, Potassium Level 5.1H, Chloride Level 102, Carbon Dioxide Level 24, Anion Gap 15, Blood Urea Nitrogen 23, Creatinine 1.8H, Estimat Glomerular Filtration Rate , Glucose Level 142H, Calcium Level 9.6 Current Medications Medications (Trade) Dose Ordered Sig/Nathan Route PRN Reason Start Time Stop Time Status Last Admin Dose Admin Acetaminophen (Tylenol) 650 mg Q6H PRN ORAL Mild Pain/Temp > 100.5 11/15/16 04:15 12/15/16 04:14 Albuterol/ Ipratropium (DuoNeb 0.5-3(2.5)mg/3ml) 3 ml Q6HRT HHN 11/15/16 19:00 11/20/16 18:59 11/17/16 14:05 Azithromycin (Zithromax) 250 mg DAILY ORAL 11/17/16 09:00 11/21/16 08:59 11/17/16 09:30 Ceftriaxone Sodium/Dextrose (Rocephin/D5W 50ml) 50 ml @ 100 mls/hr Q24H IVPB 11/15/16 23:00 11/22/16 22:59 11/16/16 22:15 Dextrose (Dextrose 50%) STAT PRN IV Hypoglycemia 11/15/16 04:15 12/15/16 04:14 Guaifenesin/ Codeine Phosphate (Robitussin with codeine) 5 ml Q6H PRN ORAL For Cough 11/15/16 19:00 12/15/16 18:59 11/17/16 09:30 Heparin Sodium (Porcine) 5000 units 5,000 units EVERY 12 HOURS SUBQ 11/15/16 09:00 12/15/16 08:59 11/15/16 10:01 Insulin Aspart (NovoLOG) BEFORE MEALS AND HS SUBQ 11/15/16 06:30 12/15/16 06:29 11/16/16 12:19 Sennosides (Senokot) 34.4 mg DAILY PRN ORAL Constipation 11/15/16 18:45 12/15/16 18:44 11/17/16 09:30 Theophylline (Soham-Dur) 100 mg EVERY 12 HOURS ORAL 11/15/16 21:00 12/15/16 20:59 11/17/16 09:30 Zolpidem Tartrate (Ambien) 5 mg HSPRN PRN ORAL Insomnia 11/15/16 19:30 12/15/16 19:29 11/16/16 20:34 OLIVIA WALKER Nov 17, 2016 17:19
[2016-11-17 18:37] LABS: ANION GAP 17 (5-15); CARBON DIOXIDE 25 mEQ/L (20-30); CHLORIDE 95 mEQ/L (98-107); CREATININE 1.7 mg/dL (0.7-1.2); HEMOLYSIS 5; POTASSIUM 4.5 mEQ/L (3.4-4.9); SODIUM 137 mEQ/L (135-145)
[2016-11-17] MEDS: Zolpidem 5mg tab ORAL PRN (20:26)
[2016-11-17] MEDS: cefTRIAXone 1 GM in D5W 50 ML IVPB SCH (22:02)
[2016-11-18] MEDS: DuoNeb 0.5-3(2.5)mg/3ml neb HHN SCH ×4 (01:00→19:00)
[2016-11-18 04:00] VITALS: BP 126/70
[2016-11-18] MEDS: NovoLOG Insulin Flexpen SUBQ SCH ×4 (06:21→20:47)
[2016-11-18 07:16] LABS: BASOPHILS % (AUTO) 0.9 % (0.0-2.0); EOSINOPHILS % (AUTO) 2.1 % (0.0-3.0); LYMPHOCYTES % (AUTO) 7.2 % (20.0-45.0); MEAN CORPUSCULAR HEMOGLOBIN 30.7 PG (27.0-31.0); MEAN CORPUSCULAR HGB CONC 33.3 G/DL (32.0-36.0); MEAN CORPUSCULAR VOLUME 92 FL (80-99); MEAN PLATELET VOLUME 9.3 FL (6.5-10.1); MONOCYTES % (AUTO) 10.8 % (1.0-10.0); PLATELET COUNT 196 K/UL (150-450); RED BLOOD COUNT 3.51 M/UL (4.70-6.10); RED CELL DISTRIBUTION WIDTH 12.6 % (11.6-14.8); WHITE BLOOD COUNT 9.7 K/UL (4.8-10.8)
[2016-11-18 07:19] LABS: HEMOGLOBIN A1C 5.9 % (< 6.0)
[2016-11-18 07:32] LABS: ALANINE AMINOTRANSFERASE 75 U/L (3-41); ALBUMIN/GLOBULIN RATIO 1.3 (1.0-2.7); ANION GAP 16 (5-15); ASPARTATE AMINO TRANSFERASE 50 U/L (5-40); CALCIUM 9.7 mg/dL (8.6-10.2); CARBON DIOXIDE 25 mEQ/L (20-30); CHLORIDE 94 mEQ/L (98-107); CHOLESTEROL 229 mg/dL (< 200); CHOLESTEROL/HDL RATIO 6.2 (3.3-4.4); CREATININE 1.8 mg/dL (0.7-1.2); CRP QUANT 12.3 mg/dL (< 0.5); HEMOLYSIS 3; LDL CHOLESTEROL (CALC.) 159 mg/dL (60-99); MAGNESIUM 1.8 mg/dL (1.7-2.5); PHOSPHORUS 4.1 mg/dL (2.5-4.8); POTASSIUM 4.9 mEQ/L (3.4-4.9); SODIUM 135 mEQ/L (135-145); URIC ACID 5.8 mg/dL (3.0-7.5)
[2016-11-18 08:00] VITALS: BP 126/80
[2016-11-18] MEDS: Azithromycin 250mg tab ORAL SCH (10:07)
[2016-11-18] MEDS: Heparin 5000 units/ml inj SUBQ SCH ×2 (10:37→20:46)
[2016-11-18] MEDS: Theophylline ER 100mg ORAL SCH ×3 (10:37→20:46)
[2016-11-18 12:00] VITALS: BP 130/80
[2016-11-18 16:00] VITALS: BP 102/59
--- NOTE | 2016-11-18 16:03 | General Progress Note ---
Assessment/Plan Status: unchanged Assessment/Plan Renal insufficiency due to combination of ONE functioning kidney and underlying DM and HTN Proteinuria indicative of Nephropathy -. Right lower lobe pneumonia. -. Leukocytosis. -. Chronic obstructive pulmonary disease. -. Diabetes type 2. A1C WNL -. Hypertension. -. Coronary artery disease. -. Mild Anemia -. Mild elevation of LFTs Plan: Optimize cardiac and Pulmonary status- monitor renal parameters- Avoid Nephrotoxics- urine studies Subjective ROS Limited/Unobtainable: No Constitutional: Reports: malaise, weakness Allergies: Coded Allergies: No Known Allergies (Verified , 02/18/10) Objective Last 24 Hour Vital Signs Date Time Temp Pulse Resp B/P Pulse Ox O2 Delivery O2 Flow Rate FiO2 11/18/16 12:00 96.9 62 17 130/80 98 Room Air 11/18/16 08:00 96.8 68 17 126/80 98 Room Air 11/18/16 04:00 97.7 74 20 126/70 97 Room Air 11/18/16 03:26 78 16 98 Nasal Cannula 2.0 28 11/18/16 03:16 75 18 94 Room Air 11/18/16 01:03 Room Air 11/18/16 01:01 Room Air 11/17/16 23:58 96.9 72 20 123/52 96 Room Air 11/17/16 20:00 98.2 70 20 123/62 Room Air 11/17/16 18:40 72 16 98 Room Air 11/17/16 18:31 Room Air 11/17/16 18:31 96 Room Air 11/17/16 18:30 68 20 94 Room Air Intake and Output 11/17/16 11/18/16 19:00 07:00 Intake Total 410 ml Balance 410 ml Intake Oral 360 ml IV Total 50 ml # Voids 4 Laboratory Tests 11/17/16 17:25: Sodium Level 137, Potassium Level 4.5, Chloride Level 95L, Carbon Dioxide Level 25, Anion Gap 17H, Blood Urea Nitrogen 23, Creatinine 1.7H, Estimat Glomerular Filtration Rate , Glucose Level 144H, Calcium Level 10.0 11/17/16 18:30: Urine Random Sodium 125 11/18/16 05:35: Urine Eosinophils None seen 11/18/16 05:45: Sodium Level 135, Potassium Level 4.9, Chloride Level 94L, Carbon Dioxide Level 25, Anion Gap 16H, Blood Urea Nitrogen 23, Creatinine 1.8H, Estimat Glomerular Filtration Rate , Glucose Level 140H, Calcium Level 9.7, White Blood Count 9.7, Red Blood Count 3.51L, Hemoglobin 10.8L, Hematocrit 32.3L, Mean Corpuscular Volume 92, Mean Corpuscular Hemoglobin 30.7, Mean Corpuscular Hemoglobin Concent 33.3, Red Cell Distribution Width 12.6, Platelet Count 196, Mean Platelet Volume 9.3, Neutrophils (%) (Auto) 79.0H, Lymphocytes (%) (Auto) 7.2L, Monocytes (%) (Auto) 10.8H, Eosinophils (%) (Auto) 2.1, Basophils (%) (Auto) 0.9 , Hemoglobin A1c 5.9, Uric Acid 5.8, Phosphorus Level 4.1, Magnesium Level 1.8, Total Bilirubin 0.3, Gamma Glutamyl Transpeptidase 94H, Aspartate Amino Transf ( AST/SGOT) 50H, Alanine Aminotransferase (ALT/SGPT) 75H, Alkaline Phosphatase 97 , Total Creatine Kinase 128, C-Reactive Protein, Quantitative 12.3H, Pro-B-Type Natriuretic Peptide 752H, Total Protein 7.0, Albumin 4.0, Globulin 3.0, Albumin/ Globulin Ratio 1.3, Triglycerides Level 167H, Cholesterol Level 229H, LDL Cholesterol 159H, HDL Cholesterol 37, Cholesterol/HDL Ratio 6.2H, Vitamin B12 Level 905, Thyroid Stimulating Hormone (TSH) 7.110H Height (Feet): 5 Height (Inches): 6.00 Weight (Pounds): 175 General Appearance: no apparent distress Cardiovascular: normal rate Respiratory/Chest: decreased breath sounds Abdomen: soft Objective other PE not changed JESSENIA CAAL Nov 18, 2016 16:03
--- NOTE | 2016-11-18 17:31 | Internal Med Progress Note ---
Subjective Date of Service: Nov 18, 2016 Physician Name Lea Munguia Attending Physician Tobin Medel MD Current Medications Medications (Trade) Dose Ordered Sig/Nathan Route PRN Reason Start Time Stop Time Status Last Admin Dose Admin Acetaminophen (Tylenol) 650 mg Q6H PRN ORAL Mild Pain/Temp > 100.5 11/15/16 04:15 12/15/16 04:14 Albuterol/ Ipratropium (DuoNeb 0.5-3(2.5)mg/3ml) 3 ml Q6HRT HHN 11/15/16 19:00 11/20/16 18:59 11/18/16 13:30 Azithromycin 250 mg 250 mg DAILY ORAL 11/17/16 09:00 11/21/16 08:59 11/18/16 10:07 Ceftriaxone Sodium/Dextrose (Rocephin/D5W) 55 ml @ 110 mls/hr Q24H IVPB 11/18/16 23:00 11/22/16 22:59 Dextrose (Dextrose 50%) STAT PRN IV Hypoglycemia 11/15/16 04:15 12/15/16 04:14 Guaifenesin/ Codeine Phosphate (Robitussin with codeine) 5 ml Q6H PRN ORAL For Cough 11/15/16 19:00 12/15/16 18:59 11/17/16 09:30 Heparin Sodium (Porcine) (Heparin 5000 units/ml) 5,000 units EVERY 12 HOURS SUBQ 11/15/16 09:00 12/15/16 08:59 11/18/16 10:37 Insulin Aspart (NovoLOG) BEFORE MEALS AND HS SUBQ 11/15/16 06:30 12/15/16 06:29 11/16/16 12:19 Sennosides (Senokot) 34.4 mg DAILY PRN ORAL Constipation 11/15/16 18:45 12/15/16 18:44 11/17/16 09:30 Theophylline (Soham-Dur) 100 mg EVERY 12 HOURS ORAL 11/15/16 21:00 12/15/16 20:59 11/18/16 10:37 Zolpidem Tartrate (Ambien) 5 mg HSPRN PRN ORAL Insomnia 11/15/16 19:30 12/15/16 19:29 11/17/16 20:26 Allergies: Coded Allergies: No Known Allergies (Verified , 4/22/10) ROS Limited/Unobtainable: No Constitutional: Reports: no symptoms HEENT: Reports: no symptoms Cardiovascular: Reports: no symptoms Respiratory: Reports: cough, shortness of breath Gastrointestinal/Abdominal: Reports: no symptoms Genitourinary: Reports: no symptoms Neurologic/Psychiatric: Reports: no symptoms Subjective 86 YO M admitted with shortness of breath; now pneumonia. Cover for Int [facility]- Dr Medel. C/O cough Objective Last Vital Signs Date Time Temp Pulse Resp B/P Pulse Ox O2 Delivery O2 Flow Rate FiO2 11/18/16 16:00 97.3 84 19 102/59 93 Room Air 11/18/16 13:30 2.0 28 Laboratory Tests Test 11/17/16 18:30 11/18/16 05:35 11/18/16 05:45 Urine Random Sodium 125 mmol/L Urine Eosinophils None seen White Blood Count 9.7 K/UL (4.8-10.8) Red Blood Count 3.51 M/UL (4.70-6.10) L Hemoglobin 10.8 G/DL (14.2-18.0) L Hematocrit 32.3 % (42.0-52.0) L Mean Corpuscular Volume 92 FL (80-99) Mean Corpuscular Hemoglobin 30.7 PG (27.0-31.0) Mean Corpuscular Hemoglobin Concent 33.3 G/DL (32.0-36.0) Red Cell Distribution Width 12.6 % (11.6-14.8) Platelet Count 196 K/UL (150-450) Mean Platelet Volume 9.3 FL (6.5-10.1) Neutrophils (%) (Auto) 79.0 % (45.0-75.0) H Lymphocytes (%) (Auto) 7.2 % (20.0-45.0) L Monocytes (%) (Auto) 10.8 % (1.0-10.0) H Eosinophils (%) (Auto) 2.1 % (0.0-3.0) Basophils (%) (Auto) 0.9 % (0.0-2.0) Sodium Level 135 mEQ/L (135-145) Potassium Level 4.9 mEQ/L (3.4-4.9) Chloride Level 94 mEQ/L (98-107) L Carbon Dioxide Level 25 mEQ/L (20-30) Anion Gap 16 (5-15) H Blood Urea Nitrogen 23 mg/dL (7-23) Creatinine 1.8 mg/dL (0.7-1.2) H Estimat Glomerular Filtration Rate mL/min (>60) Glucose Level 140 mg/dL (74-106) H Hemoglobin A1c 5.9 % (< 6.0) Uric Acid 5.8 mg/dL (3.0-7.5) Calcium Level 9.7 mg/dL (8.6-10.2) Phosphorus Level 4.1 mg/dL (2.5-4.8) Magnesium Level 1.8 mg/dL (1.7-2.5) Total Bilirubin 0.3 mg/dL (0.0-1.2) Gamma Glutamyl Transpeptidase 94 U/L (8-61) H Aspartate Amino Transf (AST/SGOT) 50 U/L (5-40) H Alanine Aminotransferase (ALT/SGPT) 75 U/L (3-41) H Alkaline Phosphatase 97 U/L (40-129) Total Creatine Kinase 128 U/L (38-174) C-Reactive Protein, Quantitative 12.3 mg/dL (< 0.5) H Pro-B-Type Natriuretic Peptide 752 pg/mL (0-450) H Total Protein 7.0 g/dL (6.6-8.7) Albumin 4.0 g/dL (3.5-5.2) Globulin 3.0 g/dL Albumin/Globulin Ratio 1.3 (1.0-2.7) Triglycerides Level 167 mg/dL (< 150) H Cholesterol Level 229 mg/dL (< 200) H LDL Cholesterol 159 mg/dL (60-99) H HDL Cholesterol 37 mg/dL (> 60) Cholesterol/HDL Ratio 6.2 (3.3-4.4) H Vitamin B12 Level 905 pg/mL (211-946) Thyroid Stimulating Hormone (TSH) 7.110 uIU/mL (0.300-4.500) Microbiology Date/Time Source Procedure Growth Status 11/15/16 21:00 Sputum Gram Stain - Final Complete 11/15/16 21:00 Sputum Culture - Final Cindi Albicans Usual Upper Respiratory Letty Complete Intake and Output 11/17/16 11/18/16 19:00 07:00 Intake Total 410 ml Balance 410 ml Intake Oral 360 ml IV Total 50 ml # Voids 4 Objective General Appearance: WD/WN, alert, mild distress EENT: PERRL/EOMI, normal ENT inspection Neck: non-tender, normal alignment, supple Cardiovascular: normal peripheral pulses, normal rate, regular rhythm, no gallop/murmur, no JVD Respiratory/Chest: chest wall non-tender, crackles/rales, rhonchi - bilaterally , expiratory wheezing Abdomen: normal bowel sounds, non tender, soft, no organomegaly, no mass Extremities: normal range of motion 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 (2) Leukocytosis (3) Renal insufficiency Assessment & Plan: Solitary kidney.See nephrology note. D/C IV fluids. (4) Cough (5) Shortness of breath (6) Pneumonia Assessment & Plan: Continue ceftriaxone and azithromycin (7) COPD (chronic obstructive pulmonary disease) (8) HTN (hypertension) Assessment & Plan: Currently normotensive off meds. (9) CAD (coronary artery disease) Status: not improved Assessment/Plan Discussed with daughter, LEA Aaron Nov 18, 2016 17:31
[2016-11-18 20:00] VITALS: BP 118/62
[2016-11-18] MEDS: Zolpidem 5mg tab ORAL PRN (20:40)
[2016-11-18] MEDS: cefTRIAXone 1gm/D5W 55ml IVPB SCH ×2 (20:41)
[2016-11-19] VITALS: BP 124/64
[2016-11-19] MEDS: DuoNeb 0.5-3(2.5)mg/3ml neb HHN SCH ×4 (01:00→19:00)
[2016-11-19 04:00] VITALS: BP 118/66
[2016-11-19] MEDS: NovoLOG Insulin Flexpen SUBQ SCH ×4 (06:29→21:00)
[2016-11-19 08:15] VITALS: BP 119/68
[2016-11-19 08:18] LABS: HEMOLYSIS 3; IRON 21 ug/dL (59-158); TOTAL IRON BINDING CAPACITY 281 ug/dL (250-400)
[2016-11-19 08:24] LABS: ALANINE AMINOTRANSFERASE 71 U/L (3-41); ALBUMIN/GLOBULIN RATIO 1.2 (1.0-2.7); ANION GAP 15 (5-15); ASPARTATE AMINO TRANSFERASE 38 U/L (5-40); CALCIUM 9.7 mg/dL (8.6-10.2); CARBON DIOXIDE 26 mEQ/L (20-30); CHLORIDE 94 mEQ/L (98-107); CREATININE 1.9 mg/dL (0.7-1.2); POTASSIUM 4.9 mEQ/L (3.4-4.9); SODIUM 135 mEQ/L (135-145); TOTAL PROTEIN 7.3 g/dL (6.6-8.7)
[2016-11-19 08:25] LABS: FERRITIN 120 ng/mL (10-230)
[2016-11-19 08:37] LABS: BASOPHILS % (AUTO) 1.5 % (0.0-2.0); EOSINOPHILS % (AUTO) 2.8 % (0.0-3.0); LYMPHOCYTES % (AUTO) 7.8 % (20.0-45.0); MEAN CORPUSCULAR VOLUME 94 FL (80-99); MEAN PLATELET VOLUME 8.4 FL (6.5-10.1); MONOCYTES % (AUTO) 14.3 % (1.0-10.0); NEUTROPHILS % (AUTO) 73.5 % (45.0-75.0); PLATELET COUNT 234 K/UL (150-450); RED BLOOD COUNT 3.91 M/UL (4.70-6.10); RED CELL DISTRIBUTION WIDTH 12.7 % (11.6-14.8)
[2016-11-19] MEDS: Azithromycin 250mg tab ORAL SCH (08:52)
[2016-11-19] MEDS: Theophylline ER 100mg ORAL SCH ×2 (08:53→21:54)
[2016-11-19] MEDS: Heparin 5000 units/ml inj SUBQ SCH ×2 (08:54→21:00)
[2016-11-19 12:02] VITALS: BP 114/64
--- NOTE | 2016-11-19 14:52 | Internal Med Progress Note ---
Subjective Date of Service: Nov 19, 2016 Physician Name Lea Munguia Attending Physician Tobin Medel MD Current Medications Medications (Trade) Dose Ordered Sig/Nathan Route PRN Reason Start Time Stop Time Status Last Admin Dose Admin Acetaminophen (Tylenol) 650 mg Q6H PRN ORAL Mild Pain/Temp > 100.5 11/15/16 04:15 12/15/16 04:14 Albuterol/ Ipratropium (DuoNeb 0.5-3(2.5)mg/3ml) 3 ml Q6HRT HHN 11/15/16 19:00 11/20/16 18:59 11/19/16 13:30 Azithromycin 250 mg 250 mg DAILY ORAL 11/17/16 09:00 11/21/16 08:59 11/19/16 08:52 Ceftriaxone Sodium/Dextrose (Rocephin/D5W) 55 ml @ 110 mls/hr Q24H IVPB 11/18/16 23:00 11/22/16 22:59 11/18/16 20:41 Dextrose (Dextrose 50%) STAT PRN IV Hypoglycemia 11/15/16 04:15 12/15/16 04:14 Guaifenesin/ Codeine Phosphate (Robitussin with codeine) 5 ml Q6H PRN ORAL For Cough 11/15/16 19:00 12/15/16 18:59 11/17/16 09:30 Heparin Sodium (Porcine) (Heparin 5000 units/ml) 5,000 units EVERY 12 HOURS SUBQ 11/15/16 09:00 12/15/16 08:59 11/18/16 10:37 Insulin Aspart (NovoLOG) BEFORE MEALS AND HS SUBQ 11/15/16 06:30 12/15/16 06:29 11/16/16 12:19 Sennosides (Senokot) 34.4 mg DAILY PRN ORAL Constipation 11/15/16 18:45 12/15/16 18:44 11/17/16 09:30 Theophylline (Soham-Dur) 100 mg EVERY 12 HOURS ORAL 11/15/16 21:00 12/15/16 20:59 11/19/16 08:53 Zolpidem Tartrate (Ambien) 5 mg HSPRN PRN ORAL Insomnia 11/15/16 19:30 12/15/16 19:29 11/17/16 20:26 Allergies: Coded Allergies: No Known Allergies (Verified , 02/18/10) ROS Limited/Unobtainable: Yes Subjective 86 YO M admitted with shortness of breath; now pneumonia. Cover for Int [facility]- Dr Medel. C/O cough Objective Last Vital Signs Date Time Temp Pulse Resp B/P Pulse Ox O2 Delivery O2 Flow Rate FiO2 11/19/16 12:02 98.2 76 21 114/64 97 Nasal Cannula 2.0 11/18/16 13:30 28 Laboratory Tests Test 11/19/16 06:30 11/19/16 07:00 Urine Eosinophils None seen White Blood Count 11.0 K/UL (4.8-10.8) H Red Blood Count 3.91 M/UL (4.70-6.10) L Hemoglobin 11.7 G/DL (14.2-18.0) L Hematocrit 36.5 % (42.0-52.0) L Mean Corpuscular Volume 94 FL (80-99) Mean Corpuscular Hemoglobin 30.0 PG (27.0-31.0) Mean Corpuscular Hemoglobin Concent 32.0 G/DL (32.0-36.0) Red Cell Distribution Width 12.7 % (11.6-14.8) Platelet Count 234 K/UL (150-450) Mean Platelet Volume 8.4 FL (6.5-10.1) Neutrophils (%) (Auto) 73.5 % (45.0-75.0) Lymphocytes (%) (Auto) 7.8 % (20.0-45.0) L Monocytes (%) (Auto) 14.3 % (1.0-10.0) H Eosinophils (%) (Auto) 2.8 % (0.0-3.0) Basophils (%) (Auto) 1.5 % (0.0-2.0) Sodium Level 135 mEQ/L (135-145) Potassium Level 4.9 mEQ/L (3.4-4.9) Chloride Level 94 mEQ/L (98-107) L Carbon Dioxide Level 26 mEQ/L (20-30) Anion Gap 15 (5-15) Blood Urea Nitrogen 27 mg/dL (7-23) H Creatinine 1.9 mg/dL (0.7-1.2) H Estimat Glomerular Filtration Rate mL/min (>60) Glucose Level 119 mg/dL (74-106) H Calcium Level 9.7 mg/dL (8.6-10.2) Iron Level 21 ug/dL (59-158) L Total Iron Binding Capacity 281 ug/dL (250-400) Percent Iron Saturation 7 % (15-50) L Unsaturated Iron Binding 260 ug/dL (112-346) Ferritin 120 ng/mL (10-230) Total Bilirubin 0.4 mg/dL (0.0-1.2) Gamma Glutamyl Transpeptidase 99 U/L (8-61) H Aspartate Amino Transf (AST/SGOT) 38 U/L (5-40) Alanine Aminotransferase (ALT/SGPT) 71 U/L (3-41) H Alkaline Phosphatase 97 U/L (40-129) Total Protein 7.3 g/dL (6.6-8.7) Albumin 4.0 g/dL (3.5-5.2) Globulin 3.3 g/dL Albumin/Globulin Ratio 1.2 (1.0-2.7) Folate Pending Intake and Output 11/18/16 11/19/16 19:00 07:00 Intake Total 430 ml 535 ml Output Total 200 ml Balance 430 ml 335 ml Intake Oral 430 ml 480 ml IV Total 55 ml Output Urine Total 200 ml # Voids 3 2 Objective General Appearance: WD/WN, alert, mild distress EENT: PERRL/EOMI, normal ENT inspection Neck: non-tender, normal alignment, supple Cardiovascular: normal peripheral pulses, normal rate, regular rhythm, no gallop/murmur, no JVD Respiratory/Chest: chest wall non-tender, crackles/rales, rhonchi - bilaterally , expiratory wheezing Abdomen: normal bowel sounds, non tender, soft, no organomegaly, no mass Extremities: normal range of motion 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 (2) Leukocytosis (3) Renal insufficiency Assessment & Plan: Solitary kidney.See nephrology note. D/C IV fluids. (4) Cough (5) Shortness of breath (6) Pneumonia Assessment & Plan: Continue ceftriaxone and azithromycin (7) COPD (chronic obstructive pulmonary disease) (8) HTN (hypertension) Assessment & Plan: Currently normotensive off meds. (9) CAD (coronary artery disease) Assessment/Plan Discussed with daughter, LEA Aaron Nov 19, 2016 14:52
--- NOTE | 2016-11-19 15:03 | General Progress Note ---
Assessment/Plan Status: stable Assessment/Plan Renal insufficiency due to combination of ONE functioning kidney and underlying DM and HTN Proteinuria indicative of Nephropathy -. Right lower lobe pneumonia. -. Leukocytosis. -. Chronic obstructive pulmonary disease. -. Diabetes type 2. A1C WNL -. Hypertension. -. Coronary artery disease. -. Mild Anemia -. Mild elevation of LFTs Plan: Optimize cardiac and Pulmonary status- monitor renal parameters- Avoid Nephrotoxics- urine studies , no eosinophils Subjective ROS Limited/Unobtainable: No Constitutional: Reports: malaise Allergies: Coded Allergies: No Known Allergies (Verified , 02/18/10) Objective Last 24 Hour Vital Signs Date Time Temp Pulse Resp B/P Pulse Ox O2 Delivery O2 Flow Rate FiO2 11/19/16 12:02 98.2 76 21 114/64 97 Nasal Cannula 2.0 11/19/16 08:15 97.3 78 20 119/68 97 Room Air 11/19/16 04:00 97.2 68 20 118/66 92 Room Air 11/19/16 01:24 Room Air 11/19/16 01:24 Room Air 11/19/16 00:00 97.5 71 20 124/64 92 Room Air 11/18/16 20:00 97.6 79 18 118/62 100 Room Air 11/18/16 19:08 Room Air 11/18/16 19:07 78 16 96 Room Air 11/18/16 19:06 Room Air 11/18/16 19:06 96 Room Air 11/18/16 16:00 97.3 84 19 102/59 93 Room Air Intake and Output 11/18/16 11/19/16 19:00 07:00 Intake Total 430 ml 535 ml Output Total 200 ml Balance 430 ml 335 ml Intake Oral 430 ml 480 ml IV Total 55 ml Output Urine Total 200 ml # Voids 3 2 Laboratory Tests 11/19/16 06:30: Urine Eosinophils None seen 11/19/16 07:00: White Blood Count 11.0H, Red Blood Count 3.91L, Hemoglobin 11.7L, Hematocrit 36.5L, Mean Corpuscular Volume 94, Mean Corpuscular Hemoglobin 30.0, Mean Corpuscular Hemoglobin Concent 32.0, Red Cell Distribution Width 12.7, Platelet Count 234, Mean Platelet Volume 8.4, Neutrophils (%) (Auto) 73.5, Lymphocytes (% ) (Auto) 7.8L, Monocytes (%) (Auto) 14.3H, Eosinophils (%) (Auto) 2.8, Basophils (%) (Auto) 1.5, Sodium Level 135, Potassium Level 4.9, Chloride Level 94L, Carbon Dioxide Level 26, Anion Gap 15, Blood Urea Nitrogen 27H, Creatinine 1.9H, Estimat Glomerular Filtration Rate , Glucose Level 119H, Calcium Level 9.7 , Iron Level 21L, Total Iron Binding Capacity 281, Percent Iron Saturation 7L, Unsaturated Iron Binding 260, Ferritin 120, Total Bilirubin 0.4, Gamma Glutamyl Transpeptidase 99H, Aspartate Amino Transf (AST/SGOT) 38, Alanine Aminotransferase (ALT/SGPT) 71H, Alkaline Phosphatase 97, Total Protein 7.3, Albumin 4.0, Globulin 3.3, Albumin/Globulin Ratio 1.2, Folate [Pending] Height (Feet): 5 Height (Inches): 6.00 Weight (Pounds): 175 General Appearance: no apparent distress Objective other PE not changed JESSENIA CAAL Nov 19, 2016 15:03
[2016-11-19] MEDS ORDERED: NS 275ml ONE (15:15)
[2016-11-19 16:03] VITALS: BP 116/57
[2016-11-19] MEDS ORDERED: D5 1/2NS 1000ml IV ONE (16:09)
[2016-11-19] MEDS ORDERED: D5NS 1000ml IV ONE (16:09)
[2016-11-19] MEDS ORDERED: Tubing IV Secondary IV ONE (16:09)
[2016-11-19] MEDS: cefTRIAXone 1gm/D5W 55ml IVPB SCH ×2 (21:54)
[2016-11-20] MEDS: DuoNeb 0.5-3(2.5)mg/3ml neb HHN SCH ×3 (01:33→13:48)
[2016-11-20] MEDS: NovoLOG Insulin Flexpen SUBQ SCH ×5 (06:30→21:00)
[2016-11-20 08:15] VITALS: BP 115/63
[2016-11-20] MEDS: Heparin 5000 units/ml inj SUBQ SCH ×4 (09:00→21:46)
[2016-11-20] MEDS: Azithromycin 250mg tab ORAL SCH (09:39)
[2016-11-20] MEDS: Theophylline ER 100mg ORAL SCH ×2 (09:39→21:42)
[2016-11-20] MEDS ORDERED: NS 275ml ONE (10:26)
--- NOTE | 2016-11-20 11:20 | General Progress Note ---
Assessment/Plan Status: stable Assessment/Plan Renal insufficiency due to combination of ONE functioning kidney and underlying DM and HTN Proteinuria indicative of Nephropathy -. Right lower lobe pneumonia. -. Leukocytosis. -. Chronic obstructive pulmonary disease. -. Diabetes type 2. A1C WNL -. Hypertension. -. Coronary artery disease. -. Mild Anemia -. Mild elevation of LFTs Plan: no labs today- Optimize cardiac and Pulmonary status- monitor renal parameters- Avoid Nephrotoxics- urine studies , no eosinophils Subjective ROS Limited/Unobtainable: No Allergies: Coded Allergies: No Known Allergies (Verified , 02/18/10) Objective Last 24 Hour Vital Signs Date Time Temp Pulse Resp B/P Pulse Ox O2 Delivery O2 Flow Rate FiO2 11/20/16 08:15 98.3 73 20 115/63 95 Room Air 11/20/16 07:10 76 18 98 Nasal Cannula 2.0 28 11/20/16 07:10 96 Nasal Cannula 2.0 28 11/20/16 07:10 78 18 96 Nasal Cannula 2.0 28 11/20/16 07:10 Nasal Cannula 2.0 28 11/20/16 01:37 67 18 100 Nasal Cannula 2.0 28 11/20/16 01:32 64 18 96 Room Air 11/19/16 19:56 Room Air 11/19/16 19:55 97 Nasal Cannula 2.0 28 11/19/16 19:55 Room Air 11/19/16 19:55 Nasal Cannula 2.0 28 11/19/16 16:13 76 18 97 Nasal Cannula 2.0 28 11/19/16 16:03 98.1 72 20 116/57 95 Room Air 11/19/16 13:30 76 18 98 Nasal Cannula 2.0 28 11/19/16 13:30 76 18 96 Nasal Cannula 2.0 28 11/19/16 13:30 28 11/19/16 12:02 98.2 76 21 114/64 97 Nasal Cannula 2.0 Intake and Output 11/19/16 11/20/16 18:59 06:59 Intake Total 480 ml 155 ml Output Total 800 ml Balance 480 ml -645 ml Intake Oral 480 ml 100 ml IV Total 55 ml Output Urine Total 800 ml # Voids 2 Laboratory Tests 11/20/16 04:00: Urine Eosinophils [Pending] Height (Feet): 5 Height (Inches): 6.00 Weight (Pounds): 175 General Appearance: no apparent distress Objective other PE not changed JESSENIA CAAL Nov 20, 2016 11:19
[2016-11-20 11:53] VITALS: BP 146/86
[2016-11-20 16:00] VITALS: BP 113/50
--- NOTE | 2016-11-20 18:17 | Internal Med Progress Note ---
Subjective Date of Service: Nov 20, 2016 Physician Name Lea Griffin Attending Physician Tobin Medel MD Current Medications Medications (Trade) Dose Ordered Sig/Nathan Route PRN Reason Start Time Stop Time Status Last Admin Dose Admin Acetaminophen (Tylenol) 650 mg Q6H PRN ORAL Mild Pain/Temp > 100.5 11/15/16 04:15 12/15/16 04:14 Albuterol/ Ipratropium (DuoNeb 0.5-3(2.5)mg/3ml) 3 ml Q6HRT HHN 11/15/16 19:00 11/20/16 18:59 11/20/16 13:48 Azithromycin 250 mg 250 mg DAILY ORAL 11/17/16 09:00 11/21/16 08:59 11/20/16 09:39 Ceftriaxone Sodium/Dextrose (Rocephin/D5W) 55 ml @ 110 mls/hr Q24H IVPB 11/18/16 23:00 11/22/16 22:59 11/19/16 21:54 Dextrose (Dextrose 50%) STAT PRN IV Hypoglycemia 11/15/16 04:15 12/15/16 04:14 Guaifenesin/ Codeine Phosphate (Robitussin with codeine) 5 ml Q6H PRN ORAL For Cough 11/15/16 19:00 12/15/16 18:59 11/17/16 09:30 Heparin Sodium (Porcine) (Heparin 5000 units/ml) 5,000 units EVERY 12 HOURS SUBQ 11/15/16 09:00 12/15/16 08:59 11/19/16 21:00 Insulin Aspart (NovoLOG) BEFORE MEALS AND HS SUBQ 11/15/16 06:30 12/15/16 06:29 11/19/16 17:17 Sennosides (Senokot) 34.4 mg DAILY PRN ORAL Constipation 11/15/16 18:45 12/15/16 18:44 11/17/16 09:30 Theophylline (Soham-Dur) 100 mg EVERY 12 HOURS ORAL 11/15/16 21:00 12/15/16 20:59 11/20/16 09:39 Zolpidem Tartrate (Ambien) 5 mg HSPRN PRN ORAL Insomnia 11/15/16 19:30 12/15/16 19:29 11/17/16 20:26 Allergies: Coded Allergies: No Known Allergies (Verified , 02/18/10) ROS Limited/Unobtainable: No Constitutional: Reports: no symptoms HEENT: Reports: no symptoms Cardiovascular: Reports: no symptoms Respiratory: Reports: shortness of breath Gastrointestinal/Abdominal: Reports: no symptoms Genitourinary: Reports: no symptoms Neurologic/Psychiatric: Reports: no symptoms Subjective 86 YO M admitted with shortness of breath; now pneumonia. Cover for Int Med- Dr Medel. C/O cough Objective Last Vital Signs Date Time Temp Pulse Resp B/P Pulse Ox O2 Delivery O2 Flow Rate FiO2 11/20/16 16:00 97.7 74 18 113/50 93 Room Air 11/20/16 13:20 2.0 28 Laboratory Tests Test 11/20/16 04:00 Urine Eosinophils None seen Intake and Output 11/19/16 11/20/16 19:00 07:00 Intake Total 480 ml 155 ml Output Total 800 ml Balance 480 ml -645 ml Intake Oral 480 ml 100 ml IV Total 55 ml Output Urine Total 800 ml # Voids 2 Objective General Appearance: WD/WN, alert, mild distress EENT: PERRL/EOMI, normal ENT inspection Neck: non-tender, normal alignment, supple Cardiovascular: normal peripheral pulses, normal rate, regular rhythm, no gallop/murmur, no JVD Respiratory/Chest: chest wall non-tender, crackles/rales, rhonchi - bilaterally , expiratory wheezing Abdomen: normal bowel sounds, non tender, soft, no organomegaly, no mass Extremities: normal range of motion 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 (2) Leukocytosis (3) Renal insufficiency Assessment & Plan: Solitary kidney.See nephrology note. D/C IV fluids. (4) Cough (5) Shortness of breath (6) Pneumonia Assessment & Plan: Continue ceftriaxone and azithromycin (7) COPD (chronic obstructive pulmonary disease) (8) HTN (hypertension) Assessment & Plan: Currently normotensive off meds. (9) CAD (coronary artery disease) Assessment/Plan D/C in am 11/21/16. Discussed with daughter, Starr-patient refused home health LEA GRIFFIN Nov 20, 2016 18:17
[2016-11-20 20:00] VITALS: BP 118/51
[2016-11-20] MEDS: cefTRIAXone 1gm/D5W 55ml IVPB SCH ×2 (23:52)
[2016-11-21] VITALS: BP_SYST 128; BP_SYST 136; BP_DIAS 68; BP_DIAS 73
[2016-11-21 04:00] VITALS: BP 136/71
[2016-11-21] MEDS: NovoLOG Insulin Flexpen SUBQ SCH ×3 (06:11→11:30)
[2016-11-21 07:23] LABS: BASOPHILS % (AUTO) 1.3 % (0.0-2.0); EOSINOPHILS % (AUTO) 2.5 % (0.0-3.0); LYMPHOCYTES % (AUTO) 7.2 % (20.0-45.0); MEAN CORPUSCULAR HEMOGLOBIN 30.2 PG (27.0-31.0); MEAN CORPUSCULAR HGB CONC 32.5 G/DL (32.0-36.0); MEAN CORPUSCULAR VOLUME 93 FL (80-99); MEAN PLATELET VOLUME 7.8 FL (6.5-10.1); MONOCYTES % (AUTO) 10.2 % (1.0-10.0); NEUTROPHILS % (AUTO) 78.9 % (45.0-75.0); PLATELET COUNT 260 K/UL (150-450); RED BLOOD COUNT 3.57 M/UL (4.70-6.10); RED CELL DISTRIBUTION WIDTH 12.1 % (11.6-14.8); WHITE BLOOD COUNT 9.5 K/UL (4.8-10.8)
[2016-11-21 07:42] LABS: ANION GAP 16 (5-15); CALCIUM 9.3 mg/dL (8.6-10.2); CARBON DIOXIDE 25 mEQ/L (20-30); CHLORIDE 93 mEQ/L (98-107); CREATININE 1.9 mg/dL (0.7-1.2); HEMOLYSIS 2; POTASSIUM 4.5 mEQ/L (3.4-4.9); SODIUM 134 mEQ/L (135-145)
[2016-11-21] MEDS: Theophylline ER 100mg ORAL SCH (08:14)
[2016-11-21 08:15] VITALS: BP 110/63
[2016-11-21] MEDS: Heparin 5000 units/ml inj SUBQ SCH (08:54)
[2016-11-21] MEDS ORDERED: Azithromycin 250mg tab ORAL SCH (09:00)
[2016-11-21] MEDS ORDERED: AZITHROMYCIN500 MG ORAL (10:04)
--- NOTE | 2016-11-21 10:14 | General Progress Note ---
Assessment/Plan Status: stable Assessment/Plan Renal insufficiency due to combination of ONE functioning kidney and underlying DM and HTN Proteinuria indicative of Nephropathy -. Right lower lobe pneumonia. -. Leukocytosis. -. Chronic obstructive pulmonary disease. -. Diabetes type 2. A1C WNL -. Hypertension. -. Coronary artery disease. -. Mild Anemia -. Mild elevation of LFTs Plan: Optimize cardiac and Pulmonary status- monitor renal parameters- Avoid Nephrotoxics- urine studies , no eosinophils ? DC planning? Subjective ROS Limited/Unobtainable: No Constitutional: Reports: malaise Allergies: Coded Allergies: No Known Allergies (Verified , 02/18/10) Objective Last 24 Hour Vital Signs Date Time Temp Pulse Resp B/P Pulse Ox O2 Delivery O2 Flow Rate FiO2 11/21/16 08:15 97.6 75 21 110/63 95 Room Air 11/21/16 07:56 Nasal Cannula 2.0 28 11/21/16 07:55 94 Nasal Cannula 2.0 28 11/21/16 04:00 97.2 77 20 136/71 91 Room Air 11/21/16 00:00 96.8 68 20 128/68 93 Room Air 11/20/16 20:00 98.3 71 20 118/51 94 Room Air 11/20/16 19:10 67 18 93 Nasal Cannula 2.0 28 11/20/16 19:10 93 Nasal Cannula 2.0 28 11/20/16 19:10 Nasal Cannula 2.0 28 11/20/16 19:10 Nasal Cannula 2.0 28 11/20/16 16:00 97.7 74 18 113/50 93 Room Air 11/20/16 13:20 67 18 92 Nasal Cannula 2.0 28 11/20/16 13:20 74 18 98 Nasal Cannula 2.0 28 11/20/16 11:53 97.6 74 21 146/86 97 Room Air Intake and Output 11/20/16 11/21/16 19:00 07:00 Intake Total 960 ml 295 ml Balance 960 ml 295 ml Intake Oral 960 ml 240 ml IV Total 55 ml # Voids 2 6 Laboratory Tests 11/21/16 06:45: White Blood Count 9.5, Red Blood Count 3.57L, Hemoglobin 10.8L, Hematocrit 33.2L , Mean Corpuscular Volume 93, Mean Corpuscular Hemoglobin 30.2, Mean Corpuscular Hemoglobin Concent 32.5, Red Cell Distribution Width 12.1, Platelet Count 260, Mean Platelet Volume 7.8, Neutrophils (%) (Auto) 78.9H, Lymphocytes ( %) (Auto) 7.2L, Monocytes (%) (Auto) 10.2H, Eosinophils (%) (Auto) 2.5, Basophils (%) (Auto) 1.3, Sodium Level 134L, Potassium Level 4.5, Chloride Level 93L, Carbon Dioxide Level 25, Anion Gap 16H, Blood Urea Nitrogen 27H, Creatinine 1.9H, Estimat Glomerular Filtration Rate , Glucose Level 130H, Calcium Level 9.3 Height (Feet): 5 Height (Inches): 6.00 Weight (Pounds): 175 General Appearance: no apparent distress Objective other PE not changed JESSENIA CAAL Nov 21, 2016 10:14
--- NOTE | 2016-11-21 10:34 | Discharge Summary ---
Discharge Summary Hospital Course Date of Admission Nov 14, 2016 at 23:33 Date of Discharge Admitting Diagnosis Sepsis, Pneumonia. HPI Johnny Ariza is a 86 year old male who was admitted on Nov 14, 2016 at 23:33 for Sepsis,Pneumonia Hospital Course Dictated for Int Med - Dr Medel no. [id number]. Discharge Discharge Disposition Patient was discharged to Discharge Diagnoses: LEA GRIFFIN Nov 21, 2016 10:34
[2016-11-21 12:04] VITALS: BP 121/61
--- NOTE | 2016-11-21 18:40 | Cardiology Report ---
APPROVED REPORT EXAM: Two-dimensional and M-mode echocardiogram with Doppler and color Doppler. INDICATION Congestive Heart Failure M-Mode DIMENSIONS IVSd0.9 (0.7-1.1cm)Left Atrium (MM)4.9 (1.6-4.0cm) LVDd5.1 (3.5-5.6cm)Aortic Root2.5 (2.0-3.7cm) PWd0.8 (0.7-1.1cm)Aortic Cusp Exc.1.6 (1.5-2.0cm) LVDs3.9 (2.5-4.0cm) PWs1.4 cm Normal left ventricular chamber size, systolic function and wall motion. Left ventricular ejection fraction estimated to be 60-65 %. No evidence of left ventricular hypertrophy. Small posterior pericardial effusion. Right cardiac chamber sizes are within normal limits. Mild left atrial enlargement by 2D. 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 Thickened mitral valve leaflets with normal excursion. Moderate mitral annulus and aortic root calcification. Pulmonic valve not well visualized. Normal tricuspid valve structure. IVC is normal with physiologic collapse. A color flow and spectral Doppler study was performed and revealed: No aortic regurgitation. Peak aortic valve gradient of 36mm Hg and a mean of 13 mmHg. Aortic valve area 1.3 cm2 calculated by continuity equation. No mitral regurgitation. Left ventricular diastolic dysfunction grade 1. Mitral P1/2 time of 110 m/s is compatible with a mitral valve area of 1.9cm2 Peak mitral valve diastolic gradient of 12 mmHg and a mean gradient of 4 mmHg No tricuspid regurgitation. Tricuspid systolic velocities suggests peak right ventricular systolic pressure of 18 mmHg
--- NOTE | 2016-11-21 23:56 | Pulmonology Progress Note ---
Assessment/Plan Problems: (1) Pneumonia (2) Sepsis (3) COPD (chronic obstructive pulmonary disease) (4) CAD (coronary artery disease) (5) HTN (hypertension) Assessment/Plan continuew to improve continue antibioitics titrate fio2 to sat of 92% chest pt incentive spirometry check sputum, still pending, Subjective ROS Limited/Unobtainable: No Respiratory: Reports: productive cough, shortness of breath, sputum Allergies: Coded Allergies: No Known Allergies (Verified , 02/18/10) Objective Last 24 Hour Vital Signs Date Time Temp Pulse Resp B/P Pulse Ox O2 Delivery O2 Flow Rate FiO2 11/21/16 12:04 97.7 70 20 121/61 99 Room Air 11/21/16 08:15 97.6 75 21 110/63 95 Room Air 11/21/16 07:56 Nasal Cannula 2.0 28 11/21/16 07:55 94 Nasal Cannula 2.0 28 11/21/16 04:00 97.2 77 20 136/71 91 Room Air 11/21/16 00:00 96.8 68 20 128/68 93 Room Air Intake and Output 11/20/16 11/21/16 19:00 07:00 Intake Total 960 ml 295 ml Balance 960 ml 295 ml Intake Oral 960 ml 240 ml IV Total 55 ml # Voids 2 6 General Appearance: no acute distress HEENT: normocephalic, atraumatic, PERRL Respiratory/Chest: chest wall non-tender, decreased breath sounds, accessory muscle use, rhonchi Cardiovascular: normal peripheral pulses, normal rate, regular rhythm Abdomen: normal bowel sounds, soft, non tender, no organomegaly, non distended Genitourinary: normal external genitalia Neurologic/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 grossly normal, no motor/sensory deficits Laboratory Tests 11/21/16 06:45: White Blood Count 9.5, Red Blood Count 3.57L, Hemoglobin 10.8L, Hematocrit 33.2L , Mean Corpuscular Volume 93, Mean Corpuscular Hemoglobin 30.2, Mean Corpuscular Hemoglobin Concent 32.5, Red Cell Distribution Width 12.1, Platelet Count 260, Mean Platelet Volume 7.8, Neutrophils (%) (Auto) 78.9H, Lymphocytes ( %) (Auto) 7.2L, Monocytes (%) (Auto) 10.2H, Eosinophils (%) (Auto) 2.5, Basophils (%) (Auto) 1.3, Sodium Level 134L, Potassium Level 4.5, Chloride Level 93L, Carbon Dioxide Level 25, Anion Gap 16H, Blood Urea Nitrogen 27H, Creatinine 1.9H, Estimat Glomerular Filtration Rate , Glucose Level 130H, Calcium Level 9.3 OLIVIA WALKER Nov 21, 2016 23:56
--- NOTE | 2016-11-22 02:18 | Discharge Summary ---
DATE OF ADMISSION: 11/14/2016 DATE OF DISCHARGE: 11/21/2016 ADMITTING DIAGNOSES: 1. Shortness of breath. 2. Chronic obstructive pulmonary disease. 3. Diabetes type 2. 4. Hypertension. 5. Coronary artery disease. 6. Solitary kidney on the right. DISCHARGE DIAGNOSES: 1. Shortness of breath. 2. Right lower lobe pneumonia. 3. Leukocytosis. 4. Renal insufficiency. 5. Chronic obstructive pulmonary disease. 6. Diabetes type 2. 7. Hypertension. 8. Coronary artery disease. 9. Solitary kidney on the right. HOSPITAL COURSE BY PROBLEM LIST: 1. Shortness of breath/right lower lobe pneumonia. A pulmonary consultation was obtained with Dr. Srini Mckay. The patient was placed empirically on ceftriaxone. The patient was also placed on albuterol nebulized q.4 h. p.r.n. The patient is to be discharged home on azithromycin 500 mg one tablet p.o. daily for total of seven days. The patient is to follow up with Dr. Mckay as an outpatient. 2. Chronic obstructive pulmonary disease. As above, a Pulmonary consultation was obtained with Dr. Srini Mckay. The patient remained on DuoNeb during the hospitalization. The patient was placed on ceftriaxone and azithromycin. The patient is to continue azithromycin orally as an outpatient. The patient is to follow up with Dr. Mckay as an outpatient. 3. Leukocytosis, probably secondary to pneumonia as above. 4. Renal insufficiency. The patient has a solitary right kidney. A Nephrology consultation was obtained with Dr. Blanco. The patient received intravenous fluids during the hospitalization. Admission BUN and creatinine were 23 and 1.7 respectively. Discharge BUN and creatinine 27 and 1.9 respectively. The patient will follow up with Dr. Blanco as an outpatient. 5. Diabetes type 2. The patient remained on a regular insulin sliding scale during the hospitalization. The patient is to follow up with his primary care physician in one week. 6. Hypertension. The patient remained on lisinopril during the hospitalization. The patient is to follow up with his primary care physician. 7. Coronary artery disease, stable. DISCHARGE MEDICATIONS: Please refer to discharge medication list. DISCHARGE INSTRUCTIONS: 1. The patient is discharged home today, 11/21/2016. 2. The patient refused home health. FOLLOWUP: The patient is to follow up with his primary care physician in one week. Lisandro Munguia M.D. DR: KORI JOB#: [id number] CC:
--- NOTE | 2016-12-13 15:27 | Cardiology Report ---
APPROVED REPORT EKG Measurement Heart [id number] Normal sinus rhythm Normal ECG
== END 2016-11-21 15:56 | disposition home health service (06) | DRG 194 ==
LOC: EDBD 22:08 → EMR 22:15 → 4E 23:33 → EDBEDREQ 11-15 00:03 → 4E 11-15 01:24
DX: J18.9 Pneumonia, unspecified organism (principal); Q60.0 Renal agenesis, unilateral; J44.9 Chronic obstructive pulmonary disease, unspecified; E11.9 Type 2 diabetes mellitus without complications; I10 Essential (primary) hypertension; D64.9 Anemia, unspecified; I25.10 Atherosclerotic heart disease of native coronary artery without angina pectoris; Z95.1 Presence of aortocoronary bypass graft
CPT/HCPCS: 36415; 71010; 80048; 80053; 80061; 81003; 82550; 82553; 82607; 82728; 82746; 82962; 82977; 83036; 83540; 83550; 83605; 83735; 83880; 84100; 84300; 84443; 84484; 84550; 85007; 85025; 85610; 85730; 86140; 86710; 87040; 87070; 87205; 89050; 93005; 93306; 94640; 94664; 94760; J1815; J7620

== ENCOUNTER 2018-11-08 00:45 | Inpatient (IN) | payer MEDICARE, MEDICAID ==
[~2018-11-08] VITALS: Ht 182.9 cm; Wt 91.4 kg
[~2018-11-08 00:45] MED LIST: AZITHROMYCIN500 MG ORAL
[2018-11-08 00:48] VITALS: BP 167/68
--- NOTE | 2018-11-08 00:48 | NUR ---
ED Nurse Note: Pt was brought in ED by Ambulance from Home. c/o SOB today. Pt is A/O X4, [place] speaker only. Pt was on BAPAP during Transfer. Unknow medication was used. clinical sales consultant at bed side, waiting for ER MD orders.
--- NOTE | 2018-11-08 01:30 | NUR ---
ED Nurse Note: Blood and urine collected and sent to Lab.
[2018-11-08] MEDS: Albuterol ud Inhalation HHN SCH ×3 (01:31→01:53)
[2018-11-08] MEDS: Ipratropium 0.02% Inh Soln 2.5ml UD HHN SCH ×3 (01:31→01:53)
[2018-11-08 01:58] LABS: EOSINOPHILS % (AUTO) 4.2 % (0.0-3.0); HEMATOCRIT 33.8 % (42.0-52.0); HEMOGLOBIN 11.2 G/DL (14.2-18.0); LYMPHOCYTES % (AUTO) 13.1 % (20.0-45.0); MEAN CORPUSCULAR VOLUME 92 FL (80-99); MONOCYTES % (AUTO) 13.7 % (1.0-10.0); PLATELET COUNT 113 K/UL (150-450); RED BLOOD COUNT 3.66 M/UL (4.70-6.10); RED CELL DISTRIBUTION WIDTH 13.6 % (11.6-14.8); WHITE BLOOD COUNT 8.2 K/UL (4.8-10.8)
[2018-11-08 02:10] LABS: ANION GAP 11 mmol/L (5-15); BLOOD UREA NITROGEN 32 mg/dL (7-18); CALCIUM 8.8 MG/DL (8.5-10.1); CARBON DIOXIDE 23 MMOL/L (21-32); CHLORIDE 106 MMOL/L (98-107); CREATININE 2.2 MG/DL (0.55-1.30); POTASSIUM 4.6 MMOL/L (3.5-5.1); SODIUM 140 MMOL/L (136-145)
[2018-11-08 02:23] LABS: ALANINE AMINOTRANSFERASE 27 U/L (12-78); ALBUMIN 3.4 G/DL (3.4-5.0); ALBUMIN/GLOBULIN RATIO 1.1 (1.0-2.7); ALKALINE PHOSPHATASE 72 U/L (46-116); ASPARTATE AMINO TRANSFERASE 24 U/L (15-37); BILIRUBIN,TOTAL 0.4 MG/DL (0.2-1.0); CKMB 3.2 NG/ML (0.0-3.6); CREATINE KINASE 229 U/L (26-308)
[2018-11-08] MEDS ORDERED: Azithromycin 500 MG in NS 275 ML IV ONE (02:30)
[2018-11-08] MEDS ORDERED: Piperacillin/Tazobactam 3.375 GM in NS 110 ML IVPB ONE (02:30)
[2018-11-08 02:50] LABS: APPEARANCE,URINE CLEAR; BILIRUBIN, URINE NEGATIVE (NEGATIVE); GLUCOSE, URINE (UA) NEGATIVE (NEGATIVE); KETONES,URINE NEGATIVE (NEGATIVE); LEUKOCYTE ESTERASE ,URINE 1+ (NEGATIVE); NITRITE,URINE NEGATIVE (NEGATIVE); PH,URINE 5 (4.5-8.0); PROTEIN,URINE 2+ (NEGATIVE); UROBILINOGEN,URINE NORMAL MG/DL (0.0-1.0)
--- NOTE | 2018-11-08 03:00 | NUR ---
ED Nurse Note: Meds given as ordered.
[2018-11-08 03:17] LABS: COLOR,URINE YELLOW
[2018-11-08 03:30] VITALS: BP 120/50
--- NOTE | 2018-11-08 03:30 | NUR ---
NURSE NOTES: Received report form June RN, pt. transferred from ER, pt. is A/O x's3- Armenian speaking, no signs or symptoms of acute cardiac or respiratory distress noted, cardiac monitoring placed, call light within easy reach and bed in lowest position, side rails up x's3 and safety brakes engaged. pt. oriented to room and pt. teaching done, pt. appears to be resting comfortably- talking with caregiver who is at bedside, full body assessment done- skin intact, pt. appears to be tolerating current NC settings at 3L well and no distress noted, LFA 20G IV is intact and patents. per endorsement- pts caregiver does not member pts home medications and neither does patient- per caregiver she will bring list of medications today, safety measures continued, will continue with plan of care.
--- NOTE | 2018-11-08 03:45 | NUR ---
TRANSFER TO FLOOR: Patient transferred to [id number]/235 as ordered. Report given to Ashley/RN. Belongings sent with Pt and rechecked with RN.
--- NOTE | 2018-11-08 04:28 | NUR ---
NURSE NOTES: called DR. Medel for admission orders for new patient admit- per DR. Medel- to resume all home medications and to order Coreg 3.125 PO BID- Doctor aware patient, nor caregiver remembers medications- and caregiver will bring medication list today, code status full code, cardiac diet and per doctor he will put other orders in am- orders carried out.
--- NOTE | 2018-11-08 04:31 | Emergency Room Report ---
History of Present Illness General Chief Complaint: Dyspnea/Respdistress Source: Family Member, Medical Record Present Illness HPI 88-year-old male presents ED for evaluation. Per EMS patient brought in for respiratory distress. Patient is [place]-speaking and so his family member. Nurse technical specialist cytology states that patient has been getting increasingly short of breath the last 3 days at home. Per EMS patient noted to have labored breathing and started on CPAP with nebs. Upon arrival patient showing some improvement. No reported fevers or chills. No chest pain. No sick contacts or recent travel. History of asthma. No other aggravating relieving factors. Denies any other associated symptoms Allergies: Coded Allergies: No Known Allergies (Verified , 02/18/10) Patient History Past Medical History: DM, HTN, CAD, asthma Pertinent Family History: none Social History: Denies: smoking, alcohol use, drug use Immunizations: UTD Reviewed Nursing Documentation: PMH: Agreed; PSxH: Agreed Nursing Documentation-PMH Past Medical History: No History, Except For Hx Cardiac Problems: Yes - cardiac surgery Hx Hypertension: Yes Hx Asthma: Yes Hx Diabetes: Yes Hx Cancer: No Hx Gastrointestinal Problems: No Hx Neurological Problems: Yes Review of Systems All Other Systems: negative except mentioned in HPI Physical Exam Vital Signs Date Time Temp Pulse Resp B/P (MAP) Pulse Ox O2 Delivery O2 Flow Rate FiO2 11/08/18 00:41 64 20 180/62 99 Bi-pap 5.0 11/08/18 01:15 40 Sp02 EP Interpretation: reviewed, normal General Appearance: alert, GCS 15, non-toxic, mild distress Head: normocephalic Eyes: bilateral eye normal inspection, bilateral eye PERRL ENT: normal ENT inspection Neck: normal inspection Respiratory: chest non-tender, normal breath sounds, crackles, speaking full sentences Cardiovascular #1: regular rate, rhythm, no edema Gastrointestinal: normal bowel sounds, non tender, soft, non-distended, no guarding, no rebound Rectal: deferred Genitourinary: no CVA tenderness Musculoskeletal: normal inspection Neurologic: alert, oriented x3, responsive, motor strength/tone normal, sensory intact, speech normal Psychiatric: normal inspection Skin: normal inspection Lymphatic: normal inspection Procedures Critical Care Time Critical Care Time i. I feel this is a highly complex case requiring extensive working including EKG/Rhythm strip, Xray/CT/US, Blood/urine lab work, repeat exams while in ED, and administration of strong opiates/narcotics for pain control, admission to hospital or close patient follow up. Total time: 30 min bedside evaluation and treatment excludes procedures (EKG). Reason for critical care: respiratory distress Possible complications: hypotension, hypertension, FL, shock, arrhythmias, metabolic acidosis, end organ damage, respiratory failure. Interventions: labs, ekg, cXR, BIPAP, nebs, ABG. abx. lasix. Course: Patient presenting in respiratory distress. on CPAP. BiPAP started. ABG ordered. Nebs started. no leukocytosis, BUN/Cr elevated, trop 0.153, BNP > 3000. EKG -NSR. CXR signfiiant bialteral effusion vs infiltrate. cardiomegaly. improved after bipap and discontnued. abx ordred. lasix given. aspirin given. Consultations: nursing staff, EMS, family Performed by: Dr Paul Tolerated well condition = serious j. because of unstable vital signs this patient had a condition that could potentially threaten life or limb. I feel this is a critical patient who required my full attention while patient was considered critical. Total Critical Care Time excluding procedures was greater than 35 minutes Medical Decision Making Diagnostic Impression: Primary Impression: Respiratory distress Additional Impressions: COPD (chronic obstructive pulmonary disease) Qualified Codes: J44.9 - Chronic obstructive pulmonary disease, unspecified Renal insufficiency ER Course Hospital Course 88-year-old M presenting to ED with SOB. on CPAP Differential diagnoses include: Pneumonia, CHF exacerbation, pneumothorax, fluid overload Clinical course Patient placed on stretcher. On cardiac catheterization technologist. After initial history and physical, I ordered BIPAP + nebulizer treatments. I ordered labs, IV fluids, EKG, chest x-ray, blood cultures, UA. Labs - no leukocytosis noted, hemoglobin/hematocrit stable, BUN/Cr elevated, trop 0.153, BNP > 3000 EKG - NSR, no acute ischemic changes interpreted by me CXR - bialteral effusion vs infiltrates ABG shows no significant hypoxia or acidosis or hypercapnia Respiratory status improved after BiPAP. Discontinued Lasix ordered. Aspirin ordered. Antibiotics given Case discussed with Dr. Medel and he agreed to the patient to his service for further care and support I feel this is a highly complex case requiring extensive working including EKG/ Rhythm strip, Xray/CT/US, Blood/urine lab work, repeat exams while in ED, and administration of strong opiates/narcotics for pain control, admission to hospital or close patient follow up. Diagnosis - COPD exacerbation, respiratory distress, renal insufficiency Patient admitted to telemetry in serious condition Labs Test 11/08/18 00:56 11/08/18 01:40 11/08/18 02:22 Arterial Blood pH 7.373 (7.350-7.450) Arterial Blood Partial Pressure CO2 41.2 mmHg (35.0-45.0) Arterial Blood Partial Pressure O2 142.2 mmHg (75.0-100.0) Arterial Blood HCO3 23.4 mmol/L (22.0-26.0) Arterial Blood Oxygen Saturation 98.1 % (95-100) Arterial Blood Base Excess -1.7 (-2-2) Tino Test Positive White Blood Count 8.2 K/UL (4.8-10.8) Red Blood Count 3.66 M/UL (4.70-6.10) Hemoglobin 11.2 G/DL (14.2-18.0) Hematocrit 33.8 % (42.0-52.0) Mean Corpuscular Volume 92 FL (80-99) Mean Corpuscular Hemoglobin 30.5 PG (27.0-31.0) Mean Corpuscular Hemoglobin Concent 33.1 G/DL (32.0-36.0) Red Cell Distribution Width 13.6 % (11.6-14.8) Platelet Count 113 K/UL (150-450) Mean Platelet Volume 10.7 FL (6.5-10.1) Neutrophils (%) (Auto) 68.0 % (45.0-75.0) Lymphocytes (%) (Auto) 13.1 % (20.0-45.0) Monocytes (%) (Auto) 13.7 % (1.0-10.0) Eosinophils (%) (Auto) 4.2 % (0.0-3.0) Basophils (%) (Auto) 1.0 % (0.0-2.0) Sodium Level 140 MMOL/L (136-145) Potassium Level 4.6 MMOL/L (3.5-5.1) Chloride Level 106 MMOL/L (98-107) Carbon Dioxide Level 23 MMOL/L (21-32) Anion Gap 11 mmol/L (5-15) Blood Urea Nitrogen 32 mg/dL (7-18) Creatinine 2.2 MG/DL (0.55-1.30) Estimat Glomerular Filtration Rate mL/min (>60) Glucose Level 81 MG/DL (74-106) Lactic Acid Level 1.10 mmol/L (0.4-2.0) Calcium Level 8.8 MG/DL (8.5-10.1) Total Bilirubin 0.4 MG/DL (0.2-1.0) Aspartate Amino Transf (AST/SGOT) 24 U/L (15-37) Alanine Aminotransferase (ALT/SGPT) 27 U/L (12-78) Alkaline Phosphatase 72 U/L (46-116) Total Creatine Kinase 229 U/L (26-308) Creatine Kinase MB 3.2 NG/ML (0.0-3.6) Creatine Kinase MB Relative Index 1.3 Troponin I 0.153 ng/mL (0.000-0.056) Pro-B-Type Natriuretic Peptide 3778 pg/mL (0-125) Total Protein 6.5 G/DL (6.4-8.2) Albumin 3.4 G/DL (3.4-5.0) Globulin 3.1 g/dL Albumin/Globulin Ratio 1.1 (1.0-2.7) Urine Color Yellow Urine Appearance Clear Urine pH 5 (4.5-8.0) Urine Specific [place] 1.020 (1.005-1.035) Urine Protein 2+ (NEGATIVE) Urine Glucose (UA) Negative (NEGATIVE) Urine Ketones Negative (NEGATIVE) Urine Blood 1+ (NEGATIVE) Urine Nitrite Negative (NEGATIVE) Urine Bilirubin Negative (NEGATIVE) Urine Urobilinogen Normal MG/DL (0.0-1.0) Urine Leukocyte Esterase 1+ (NEGATIVE) Urine RBC 5-10 /HPF (0 - 0) Urine WBC 0-2 /HPF (0 - 0) Urine Squamous Epithelial Cells None /LPF (NONE/OCC) Urine Bacteria Few /HPF (NONE) EKG Diagnostic Results Rate: normal Rhythm: NSR ST Segments: no acute changes ASA given to the pt in ED: Yes Rhythm Strip Diag. Results EP Interpretation: yes Rhythm: NSR, no PVC's, no ectopy Chest X-Ray Diagnostic Results Chest X-Ray Diagnostic Results : Chest X-Ray Ordered: Yes # of Views/Limited/Complete: 1 View Indication: Shortness of Breath EP Interpretation: Yes Interpretation: no pneumothorax, other - bilateral effusion vs infiltrate Impression: Other - pneumonia Electronically Signed by: Electronically signed by Jh Paul MD Last Vital Signs Date Time Temp Pulse Resp B/P (MAP) Pulse Ox O2 Delivery O2 Flow Rate FiO2 11/08/18 04:00 Nasal Cannula 3.0 11/08/18 02:16 67 20 100 30 11/08/18 00:41 180/62 Status: improved Disposition: ADMITTED INPATIENT Condition: Serious Referrals: NOT CHOSEN IPA/,REFERRING (PCP) Jh Paul MD Nov 08, 2018 04:31
--- NOTE | 2018-11-08 06:59 | NUR ---
HAND-OFF: Report given to Katiana PATRICK, pt. remains stable and no signs and symptoms of distress noted. Aware to f/u on orders and patients medication list from caregiver.
--- NOTE | 2018-11-08 07:00 | NUR ---
NURSE NOTES: Report received from CELINA Blanchard. Sinus rhythm with 1st AVB on monitoring coordinator. On N/C 3L. No respiratory distress noted. [place] speaking. Alert and oriented, resting in bed. Urinal at bedside. IV to left FA G20 patent and asymptomatic. Bed in lowest position. Side rails up x3. Call light within reach. Will resume plan of care.
[2018-11-08] MEDS ORDERED: Mylanta II UD 30ml ORAL PRN (07:45)
[2018-11-08 08:00] VITALS: BP 134/58
--- NOTE | 2018-11-08 09:13 | Consultation ---
History of Present Illness General Date patient seen: Nov 08, 2018 Chief Complaint: Dyspnea/Respdistress Reason for Consultation: CAP Present Illness HPI Mr. Ariza is a 88 yo male with PMHx of DM, Asthma and CAD who presented to the ED on 11/07/17 with SOB. The patient reports 3 days of SOB and abdominal pain (now resolved). He had no Fever at home He does have a history of asthma. In the ED he was afebrile had no leukocytosis. Inf was neg and UA was neg. He had B /L Infiltrates/edema on CXR per ED read. ID was consulted for CAP PMHx/PSHx CAD HTN DM Asthma SocHx No E/T/D FamHx Not contributory Allergies: Coded Allergies: No Known Allergies (Verified , 02/18/10) Medication History Scheduled Azithromycin (Azithromycin), 500 MG ORAL DAILY, (Reported) Patient History Healthcare decision maker n/a Resuscitation status Advanced Directive on File Review of Systems ROS Narrative 12 point ROS negative except as note in the HPI. Physical Exam Last 24 Hour Vital Signs Date Time Temp Pulse Resp B/P (MAP) Pulse Ox O2 Delivery O2 Flow Rate FiO2 11/08/18 04:00 Nasal Cannula 3.0 11/08/18 04:00 61 11/08/18 03:45 97.8 66 17 125/61 97 Nasal Cannula 3.0 30 11/08/18 03:30 Nasal Cannula 3.0 11/08/18 03:30 96.8 67 17 120/50 (73) 96 11/08/18 02:16 67 20 100 Bi-pap 30 11/08/18 01:52 65 19 100 Bi-pap 30 11/08/18 01:51 64 19 100 Bi-pap 30 11/08/18 01:50 73 22 Bi-pap 40 11/08/18 01:42 68 20 99 Bi-pap 40 11/08/18 01:42 67 20 99 Bi-pap 40 11/08/18 01:31 77 20 99 Bi-pap 40 11/08/18 01:15 65 99 Facial 40 11/08/18 00:48 98.1 66 20 167/68 99 Bi-pap 5.0 11/08/18 00:48 65 19 Bi-pap 5.0 11/08/18 00:41 64 20 180/62 99 Bi-pap 5.0 Intake and Output 11/07/18 11/08/18 19:00 07:00 Intake Total 100 ml Output Total 0 ml Balance 100 ml Intake Oral 100 ml Output Urine Total 0 ml Laboratory Tests Test 11/08/18 00:56 11/08/18 01:40 11/08/18 02:22 Arterial Blood pH 7.373 (7.350-7.450) Arterial Blood Partial Pressure CO2 41.2 mmHg (35.0-45.0) Arterial Blood Partial Pressure O2 142.2 mmHg (75.0-100.0) H Arterial Blood HCO3 23.4 mmol/L (22.0-26.0) Arterial Blood Oxygen Saturation 98.1 % (95-100) Arterial Blood Base Excess -1.7 (-2-2) Tino Test Positive White Blood Count 8.2 K/UL (4.8-10.8) Red Blood Count 3.66 M/UL (4.70-6.10) L Hemoglobin 11.2 G/DL (14.2-18.0) L Hematocrit 33.8 % (42.0-52.0) L Mean Corpuscular Volume 92 FL (80-99) Mean Corpuscular Hemoglobin 30.5 PG (27.0-31.0) Mean Corpuscular Hemoglobin Concent 33.1 G/DL (32.0-36.0) Red Cell Distribution Width 13.6 % (11.6-14.8) Platelet Count 113 K/UL (150-450) L Mean Platelet Volume 10.7 FL (6.5-10.1) H Neutrophils (%) (Auto) 68.0 % (45.0-75.0) Lymphocytes (%) (Auto) 13.1 % (20.0-45.0) L Monocytes (%) (Auto) 13.7 % (1.0-10.0) H Eosinophils (%) (Auto) 4.2 % (0.0-3.0) H Basophils (%) (Auto) 1.0 % (0.0-2.0) Sodium Level 140 MMOL/L (136-145) Potassium Level 4.6 MMOL/L (3.5-5.1) Chloride Level 106 MMOL/L (98-107) Carbon Dioxide Level 23 MMOL/L (21-32) Anion Gap 11 mmol/L (5-15) Blood Urea Nitrogen 32 mg/dL (7-18) H Creatinine 2.2 MG/DL (0.55-1.30) H Estimat Glomerular Filtration Rate mL/min (>60) Glucose Level 81 MG/DL (74-106) Lactic Acid Level 1.10 mmol/L (0.4-2.0) Calcium Level 8.8 MG/DL (8.5-10.1) Total Bilirubin 0.4 MG/DL (0.2-1.0) Aspartate Amino Transf (AST/SGOT) 24 U/L (15-37) Alanine Aminotransferase (ALT/SGPT) 27 U/L (12-78) Alkaline Phosphatase 72 U/L (46-116) Total Creatine Kinase 229 U/L (26-308) Creatine Kinase MB 3.2 NG/ML (0.0-3.6) Creatine Kinase MB Relative Index 1.3 Troponin I 0.153 ng/mL (0.000-0.056) Pro-B-Type Natriuretic Peptide 3778 pg/mL (0-125) H Total Protein 6.5 G/DL (6.4-8.2) Albumin 3.4 G/DL (3.4-5.0) Globulin 3.1 g/dL Albumin/Globulin Ratio 1.1 (1.0-2.7) Urine Color Yellow Urine Appearance Clear Urine pH 5 (4.5-8.0) Urine Specific [place] 1.020 (1.005-1.035) Urine Protein 2+ (NEGATIVE) H Urine Glucose (UA) Negative (NEGATIVE) Urine Ketones Negative (NEGATIVE) Urine Blood 1+ (NEGATIVE) H Urine Nitrite Negative (NEGATIVE) Urine Bilirubin Negative (NEGATIVE) Urine Urobilinogen Normal MG/DL (0.0-1.0) Urine Leukocyte Esterase 1+ (NEGATIVE) H Urine RBC 5-10 /HPF (0 - 0) H Urine WBC 0-2 /HPF (0 - 0) Urine Squamous Epithelial Cells None /LPF (NONE/OCC) Urine Bacteria Few /HPF (NONE) Microbiology Date/Time Source Procedure Growth Status 11/08/18 02:22 Nasal Nares Influenza Types A,B Antigen (FRANCHESCA) - Final Complete Height (Feet): 6 Height (Inches): 0.00 Weight (Pounds): 180 Medications Current Medications Medications (Trade) Dose Ordered Sig/Nathan Route PRN Reason Start Time Stop Time Status Last Admin Dose Admin Acetaminophen (Tylenol) 650 mg Q4H PRN ORAL fever 11/08/18 07:45 12/08/18 07:44 Al Hydroxide/Mg Hydroxide (Mylanta II) 30 ml Q6H PRN ORAL dyspepsia 11/08/18 07:45 12/08/18 07:44 Albuterol/ Ipratropium (Albuterol/ Ipratropium) 3 ml Q4H PRN HHN Shortness of Breath 11/08/18 07:45 11/13/18 07:44 Carvedilol (Coreg) 3.125 mg EVERY 12 HOURS ORAL 11/08/18 09:00 12/08/18 08:59 Cefepime HCl 1 gm/ Dextrose 55 ml @ 110 mls/hr ONCE IV 11/08/18 10:00 11/08/18 11:00 Cefepime HCl 500 mg/Dextrose 55 ml @ 110 mls/hr Q24H IVPB 11/08/18 22:00 11/15/18 21:59 Heparin Sodium (Porcine) (Heparin 5000 units/ml) 5,000 units EVERY 12 HOURS SUBQ 11/08/18 09:00 12/08/18 08:59 Nitroglycerin (Ntg) 0.4 mg Q5M PRN SL Prn Chest Pain 11/08/18 07:45 12/08/18 07:44 Ondansetron HCl (Zofran) 4 mg Q6H PRN IVP Nausea & Vomiting 11/08/18 07:45 12/08/18 07:44 Polyethylene Glycol (Miralax) 17 gm DAILYPRN PRN ORAL Constipation 11/08/18 07:45 12/08/18 07:44 Promethazine HCl/ Codeine (Phenergan with Codeine) 5 ml Q4H PRN ORAL For Cough 11/08/18 07:45 12/08/18 07:44 Temazepam (Restoril) 15 mg HSPRN PRN ORAL Insomnia 11/08/18 07:45 11/15/18 07:44 Vancomycin HCl (Vanco rx to dose) 1 ea DAILY PRN MISC Per rx protocol 11/08/18 07:45 12/08/18 07:44 Vancomycin HCl/ Dextrose 250 ml @ 125 mls/hr ONCE IVPB 11/08/18 10:00 11/08/18 12:00 Objective Narrative Gen: NAD HEENT: NCAT, MMM, EOMI, PERRL, No Oral lesion, no scleral icterus NECK: full range of motion, supple, no meningismus, No LAD, No JVD LUNGS: Course B/L , No W/C, No Accessory muscle use CARDS: RRR, S1, S2, No M/R/G, ABD: Soft, Obese, NT, ND, No R/G, + BS, No HSM, No Masses : Deferred Ext: C/C/E, Pulses 2+ B/L (DP, Rad) NEURO: A/O x 3, Strength and sensation grossly intact. PSYCH: Mood/affect normal SKIN: Warm/dry, No rashes Assessment/Plan Assessment/Plan 88 yo male with PMHx of DM, Asthma and CAD who presented to the ED on 11/07/17 with SOB. CAP +/- CHF or Asthma CXR - B/L Infiltrates per ED read - Final read pending Aferbile No leukocytosis CAD HTN DM Asthma PLAN - Start Ceftriaxone and Azithromycin - 11/08/18 SP Cefepime and vancomycin- - Monitor CBC and Temps - f/u Sputum Cx Thank you for this consult. We will continue to follow the patient during this hospitalization. Nic Mccall MD Nov 08, 2018 09:13
[2018-11-08] MEDS ORDERED: Cefepime HCl 1 GM in D5W 55 ML IV SCH (10:00)
[2018-11-08] MEDS ORDERED: Vancomycin 1.5 GM/D5W 250ML IVPB SCH (10:00)
[2018-11-08] MEDS: Heparin 5000 units/ml inj SUBQ SCH ×2 (10:24→21:18)
[2018-11-08] MEDS: cefTRIAXone 1 GM in D5W 55 ML IVPB SCH (10:38)
--- NOTE | 2018-11-08 10:43 | Consultation ---
History of Present Illness General Date patient seen: Nov 08, 2018 Chief Complaint: Dyspnea/Respdistress Reason for Consultation: CAP Present Illness HPI 88-year-old male with hx of CABG, Asthma, DM presented to ED for evaluation by EMS for respiratory distress. He has been getting increasingly short of breath the last 3 days at home. Per EMS patient noted to have labored breathing and started on CPAP with nebs. His BP in ER was 180/62. His troponin was positive as well. Pt was diagnosed to have acute respiratory failure secondary to pulmonary edema, NSTEMI, uncontrolled BP and admitted to [facility] for further evaluation. Allergies: Coded Allergies: No Known Allergies (Verified , 02/18/10) Medication History Scheduled Azithromycin (Azithromycin), 500 MG ORAL DAILY, (Reported) Patient History Healthcare decision maker n/a Resuscitation status Advanced Directive on File Past Medical/Surgical History Past Medical/Surgical History: (1) Hx of CABG (2) COPD (chronic obstructive pulmonary disease) (3) Diabetes mellitus (4) CAD (coronary artery disease) Review of Systems All Other Systems: negative except mentioned in HPI Physical Exam General Appearance: WD/WN Lines, tubes and drains: peripheral HEENT: normocephalic, atraumatic Neck: non-tender, supple Respiratory/Chest: chest wall non-tender, no respiratory distress Breasts: no masses Cardiovascular/Chest: normal peripheral pulses Abdomen: normal bowel sounds Genitourinary/Rectal: normal genital exam Extremities: normal range of motion Last 24 Hour Vital Signs Date Time Temp Pulse Resp B/P (MAP) Pulse Ox O2 Delivery O2 Flow Rate FiO2 11/08/18 08:00 Nasal Cannula 3.0 Nasal Cannula 3.0 11/08/18 04:00 Nasal Cannula 3.0 11/08/18 04:00 61 11/08/18 03:45 97.8 66 17 125/61 97 Nasal Cannula 3.0 30 11/08/18 03:30 Nasal Cannula 3.0 11/08/18 03:30 96.8 67 17 120/50 (73) 96 11/08/18 02:16 67 20 100 Bi-pap 30 11/08/18 01:52 65 19 100 Bi-pap 30 11/08/18 01:51 64 19 100 Bi-pap 30 11/08/18 01:50 73 22 Bi-pap 40 11/08/18 01:42 68 20 99 Bi-pap 40 11/08/18 01:42 67 20 99 Bi-pap 40 11/08/18 01:31 77 20 99 Bi-pap 40 11/08/18 01:15 65 99 Facial 40 11/08/18 00:48 98.1 66 20 167/68 99 Bi-pap 5.0 11/08/18 00:48 65 19 Bi-pap 5.0 11/08/18 00:41 64 20 180/62 99 Bi-pap 5.0 Intake and Output 11/07/18 11/08/18 18:59 06:59 Intake Total 100 ml Output Total 0 ml Balance 100 ml Intake Oral 100 ml Output Urine Total 0 ml Laboratory Tests Test 11/08/18 00:56 11/08/18 01:40 11/08/18 02:22 Arterial Blood pH 7.373 (7.350-7.450) Arterial Blood Partial Pressure CO2 41.2 mmHg (35.0-45.0) Arterial Blood Partial Pressure O2 142.2 mmHg (75.0-100.0) H Arterial Blood HCO3 23.4 mmol/L (22.0-26.0) Arterial Blood Oxygen Saturation 98.1 % (95-100) Arterial Blood Base Excess -1.7 (-2-2) Tino Test Positive White Blood Count 8.2 K/UL (4.8-10.8) Red Blood Count 3.66 M/UL (4.70-6.10) L Hemoglobin 11.2 G/DL (14.2-18.0) L Hematocrit 33.8 % (42.0-52.0) L Mean Corpuscular Volume 92 FL (80-99) Mean Corpuscular Hemoglobin 30.5 PG (27.0-31.0) Mean Corpuscular Hemoglobin Concent 33.1 G/DL (32.0-36.0) Red Cell Distribution Width 13.6 % (11.6-14.8) Platelet Count 113 K/UL (150-450) L Mean Platelet Volume 10.7 FL (6.5-10.1) H Neutrophils (%) (Auto) 68.0 % (45.0-75.0) Lymphocytes (%) (Auto) 13.1 % (20.0-45.0) L Monocytes (%) (Auto) 13.7 % (1.0-10.0) H Eosinophils (%) (Auto) 4.2 % (0.0-3.0) H Basophils (%) (Auto) 1.0 % (0.0-2.0) Sodium Level 140 MMOL/L (136-145) Potassium Level 4.6 MMOL/L (3.5-5.1) Chloride Level 106 MMOL/L (98-107) Carbon Dioxide Level 23 MMOL/L (21-32) Anion Gap 11 mmol/L (5-15) Blood Urea Nitrogen 32 mg/dL (7-18) H Creatinine 2.2 MG/DL (0.55-1.30) H Estimat Glomerular Filtration Rate mL/min (>60) Glucose Level 81 MG/DL (74-106) Lactic Acid Level 1.10 mmol/L (0.4-2.0) Calcium Level 8.8 MG/DL (8.5-10.1) Total Bilirubin 0.4 MG/DL (0.2-1.0) Aspartate Amino Transf (AST/SGOT) 24 U/L (15-37) Alanine Aminotransferase (ALT/SGPT) 27 U/L (12-78) Alkaline Phosphatase 72 U/L (46-116) Total Creatine Kinase 229 U/L (26-308) Creatine Kinase MB 3.2 NG/ML (0.0-3.6) Creatine Kinase MB Relative Index 1.3 Troponin I 0.153 ng/mL (0.000-0.056) Pro-B-Type Natriuretic Peptide 3778 pg/mL (0-125) H Total Protein 6.5 G/DL (6.4-8.2) Albumin 3.4 G/DL (3.4-5.0) Globulin 3.1 g/dL Albumin/Globulin Ratio 1.1 (1.0-2.7) Urine Color Yellow Urine Appearance Clear Urine pH 5 (4.5-8.0) Urine Specific [place] 1.020 (1.005-1.035) Urine Protein 2+ (NEGATIVE) H Urine Glucose (UA) Negative (NEGATIVE) Urine Ketones Negative (NEGATIVE) Urine Blood 1+ (NEGATIVE) H Urine Nitrite Negative (NEGATIVE) Urine Bilirubin Negative (NEGATIVE) Urine Urobilinogen Normal MG/DL (0.0-1.0) Urine Leukocyte Esterase 1+ (NEGATIVE) H Urine RBC 5-10 /HPF (0 - 0) H Urine WBC 0-2 /HPF (0 - 0) Urine Squamous Epithelial Cells None /LPF (NONE/OCC) Urine Bacteria Few /HPF (NONE) Microbiology Date/Time Source Procedure Growth Status 11/08/18 02:22 Nasal Nares Influenza Types A,B Antigen (FRANCHESCA) - Final Complete Height (Feet): 6 Height (Inches): 0.00 Weight (Pounds): 180 Medications Current Medications Medications (Trade) Dose Ordered Sig/Nathan Route PRN Reason Start Time Stop Time Status Last Admin Dose Admin Acetaminophen (Tylenol) 650 mg Q4H PRN ORAL fever 11/08/18 07:45 12/08/18 07:44 Al Hydroxide/Mg Hydroxide (Mylanta II) 30 ml Q6H PRN ORAL dyspepsia 11/08/18 07:45 12/08/18 07:44 Albuterol/ Ipratropium (Albuterol/ Ipratropium) 3 ml Q4H PRN HHN Shortness of Breath 11/08/18 07:45 11/13/18 07:44 Azithromycin (Zithromax) 250 mg DAILY ORAL 11/09/18 09:00 11/16/18 08:59 Carvedilol (Coreg) 3.125 mg EVERY 12 HOURS ORAL 11/08/18 09:00 12/08/18 08:59 Ceftriaxone Sodium 1 gm/ Dextrose 55 ml @ 110 mls/hr Q24H IVPB 11/08/18 10:00 11/15/18 09:59 Heparin Sodium (Porcine) (Heparin 5000 units/ml) 5,000 units EVERY 12 HOURS SUBQ 11/08/18 09:00 12/08/18 08:59 11/08/18 10:24 Nitroglycerin (Ntg) 0.4 mg Q5M PRN SL Prn Chest Pain 11/08/18 07:45 12/08/18 07:44 Ondansetron HCl (Zofran) 4 mg Q6H PRN IVP Nausea & Vomiting 11/08/18 07:45 12/08/18 07:44 Polyethylene Glycol (Miralax) 17 gm DAILYPRN PRN ORAL Constipation 11/08/18 07:45 12/08/18 07:44 Promethazine HCl/ Codeine (Phenergan with Codeine) 5 ml Q4H PRN ORAL For Cough 11/08/18 07:45 12/08/18 07:44 Temazepam (Restoril) 15 mg HSPRN PRN ORAL Insomnia 11/08/18 07:45 11/15/18 07:44 Assessment/Plan Problem List: (1) Acute respiratory failure ICD Codes: J96.00 - Acute respiratory failure, unspecified whether with hypoxia or hypercapnia SNOMED: 01527477 (2) Non-ST elevation (NSTEMI) myocardial infarction ICD Codes: I21.4 - Non-ST elevation (NSTEMI) myocardial infarction SNOMED: 946997503 (3) COPD (chronic obstructive pulmonary disease) ICD Codes: J44.9 - Chronic obstructive pulmonary disease, unspecified SNOMED: 09807039 Qualifiers: Qualified Codes: J44.9 - Chronic obstructive pulmonary disease, unspecified (4) Pulmonary edema ICD Codes: J81.1 - Chronic pulmonary edema SNOMED: 89858723 (5) Hx of CABG ICD Codes: Z95.1 - Presence of aortocoronary bypass graft SNOMED: 680273743, 430583103 (6) CAD (coronary artery disease) ICD Codes: I25.10 - Atherosclerotic heart disease of [place] coronary artery without angina pectoris SNOMED: 68593993 (7) Diabetes mellitus ICD Codes: E11.9 - Type 2 diabetes mellitus without complications SNOMED: 91162655 (8) HTN (hypertension) ICD Codes: I10 - Essential (primary) hypertension SNOMED: 80696270 Assessment/Plan respiratory treatment check sputum prn diuretics ( he got lasix 40 in ER) check echo titrate fio2 to saturation of 92% sliding scale diabetic diet dvt prophylaxis. Srini Mckay MD Nov 08, 2018 10:43
--- NOTE | 2018-11-08 11:17 | NUR ---
ST NOTE: BEDSIDE SWALLOW EVAL RECEIVED BEDSIDE SWALLOW EVAL CHART REVIEWED PRIOR THE EVALUATION PT IS A 88-YEAR-OLD MAURITANIAN-SPEAKING MALE WHO WAS ADMITTED DUE TO RESPIRATORY DISTRESS. DYSPHAGIA RISK FACTORS: COPD EXACERBATION, H/O CABG, CROHN'S DZ, PER CXR: BILATERAL EFFUSION VS. INFILTRATE PLOF: PT LIVES AT HOME W/FAMILY. PT IS FULL CODE. CURRENT STATUS: PT SEEN AT BEDSIDE IN AM. ALERT AND COOPERATIVE. MAURITANIAN-SPEAKING NURSE WAS AT BEDSIDE. PT IS WITH NC(3L). PER PT, DENIED ANY SWALLOWING DIFFICULTY. PER PT, HE ATE BREAKFAST THIS MORNING. GIVEN PO TRIALS: THIN(CUP-SELF), NECTAR THICK(CUP-SELF), AND PUREE. PT REFUSED MASTICATED SOLID AT THIS TIME. INITIAL IMPRESSION: PT EDENTULOUS. PER PT, HIS DENTURES IS AT HOME AND HIS FAMILY IS GOING TO BRING THEM IN. GOOD ORAL TRANSIT TIME AND OROPHARYNGEAL TRANSIT TIME FAIR TO GOOD LARYNGEAL ELEVATION, NO OVERT S/S OF ASPIRATION. OVERALL, PT'S SWALLOWING SEEMS FUNCTIONAL. HOWEVER, DUE TO PT HAS H/O COPD AND WITH RESP DISTRESS DIAGNOSIS, PT HAS SOME RISK FOR ASPRIATION. RECOMMENDATIONS: 1.FOR QUALITY OF LIFE, SLOWLY INITIATE CARDIAC SOFT, EASY CHEW WITH THIN LIQUIDS. (PT REFUSED THICKENED LIQUIDS AND CHOPPED FOOD) 2. ASPIRATION/REFLUX PRECAUTIONS WITH ASSIST/SUPERVISION. 3. VIDEOSWALLOW STUDY IF NEEDED IP OR OP D/W PT, RN AND THE STAFF POSTED ASPIRATION/REFLUX PRECAUTIONS SIGN.
[2018-11-08 12:00] VITALS: BP 147/50
--- NOTE | 2018-11-08 13:13 | Diagnostic Imaging Report ---
Indication: Shortness of breath Technique: One view of the chest Comparison: 11/14/2016 Findings: There is bilateral basilar and midlung interstitial and airspace disease, new since prior study. There are bilateral pleural effusions. Heart size is normal. No evidence of prior CABG. Patient's chin obscures the lung apices and upper mediastinum Impression: Bilateral mid and lower lung infiltrates versus edema. Suspect bilateral pleural effusions
--- NOTE | 2018-11-08 14:12 | Consultation ---
Consult Note Consult Note asked to eval for renal failure- Chief Complaint: Dyspnea/Respdistress 88-year-old male presents ED for evaluation. Per EMS patient brought in for respiratory distress. Patient is Austrian-speaking and so his family member. Nurse insert molding operator states that patient has been getting increasingly short of breath the last 3 days at home. Per EMS patient noted to have labored breathing and started on CPAP with nebs. Upon arrival patient showing some improvement. No reported fevers or chills. No chest pain. No sick contacts or recent travel. History of asthma. No other aggravating relieving factors. Denies any other associated symptoms No Known Allergies (Verified , 02/18/10) Past Medical History: DM, HTN, CAD, asthma Past Medical History: No History, Except For Hx Cardiac Problems: Yes - cardiac surgery Hx Hypertension: Yes Hx Asthma: Yes Hx Diabetes: Yes Hx Neurological Problems: Yes examined- data reviewed Assessment/Plan Renal insufficiency due to combination of ONE functioning kidney and underlying DM and HTN Proteinuria indicative of Nephropathy -. Chronic obstructive pulmonary disease. -. Diabetes type 2. -. Hypertension. -. Coronary artery disease. elevated troponin Plan: Optimize cardiac and Pulmonary status- monitor renal parameters- Avoid Nephrotoxics- urine studies Allopurinol Nitrate Jeff Denise MD Nov 08, 2018 14:12
[2018-11-08] MEDS ORDERED: Allopurinol 100mg Tab ORAL SCH (14:30)
[2018-11-08] MEDS ORDERED: Imdur 30mg tab ORAL SCH (14:30)
[2018-11-08] MEDS: Aspirin Baby 81mg ORAL SCH (15:39)
--- NOTE | 2018-11-08 15:50 | NUR ---
NURSE NOTES: SOB on exertion noted. Asked RT to give breathing treatment. Will continue to monitor.
[2018-11-08 16:00] VITALS: BP 133/45
[2018-11-08] MEDS: Albuterol/Ipratropium 3ml neb HHN PRN (16:34)
--- NOTE | 2018-11-08 16:40 | NUR ---
CASE MANAGEMENT: REVIEW 88/M BIBA FROM HOME CC: SOB SI: RESP DISTRESS T 97.2 HR 61 RR 22 BP 134/58 SAT 99% BIPAP FIO2 40 H/H 11.2/33.8 BUN 32 CR 2.2 IS: ALBUTEROL HHN X1 ATROVENT HHN X1 ASA PO QD AZITHROMYCIN IV X1 ZOSYN IV X1 LASIX IV X1 INTERQUAL CRITERIA MET: PATIENT ADMITTED TO STEP DOWN UNIT 11/08/2018 DCP: PATIENT IS FROM HOME
[2018-11-08] MEDS: Miralax 17gm pkt ORAL PRN (17:14)
--- NOTE | 2018-11-08 18:00 | NUR ---
NURSE NOTES: Family brought upper and lower denture and cell phone. Belonging list updated.
[2018-11-08 18:15] LABS: APPEARANCE,URINE CLEAR; BILIRUBIN, URINE NEGATIVE (NEGATIVE); COLOR,URINE PALE YELLOW; GLUCOSE, URINE (UA) NEGATIVE (NEGATIVE); KETONES,URINE NEGATIVE (NEGATIVE); LEUKOCYTE ESTERASE ,URINE NEGATIVE (NEGATIVE); NITRITE,URINE NEGATIVE (NEGATIVE); PH,URINE 5 (4.5-8.0); PROTEIN,URINE NEGATIVE (NEGATIVE); UROBILINOGEN,URINE NORMAL MG/DL (0.0-1.0)
--- NOTE | 2018-11-08 18:38 | History & Physical ---
History and Physical History & Physicial Dictated for Int Med-Dr Medel no. [id number]. Lisandro Munguia MD Nov 08, 2018 18:38
--- NOTE | 2018-11-08 19:10 | NUR ---
NURSE NOTES: Received report form Katiana PATRICK, pt. is A/O x's3- Azerbaijani speaking, no signs or symptoms of acute cardiac or respiratory distress noted, cardiac monitoring on, call light within easy reach and bed in lowest position, side rails up x's3 and safety brakes engaged. Urinal at bedside and within easy reach, pt. appears to be resting comfortably- watching television, comfort measures provided, pt. is clean and dry, pt. appears to be tolerating current NC settings at 5L-no distress noted, LFA 20G IV is intact and patent. safety measures continued, will continue with plan of care.
--- NOTE | 2018-11-08 19:38 | NUR ---
HAND-OFF: Report given to CELINA Blanchard.
[2018-11-08 20:00] VITALS: BP 137/41
--- NOTE | 2018-11-08 20:45 | History and Physical Report ---
DATE OF ADMISSION: 11/08/2018 CHIEF COMPLAINT: The patient is an 88-year-old white male, who presents with chief complaint of respiratory distress and shortness of breath. HISTORY OF PRESENT ILLNESS: The patient is a [place] Arabian speaking. Much of the history and physical is taken from the patient's chart. There is a nurse on the unit who is [place] Arabian-speaking. The patient has a history of chronic obstructive pulmonary disease. The patient became increasing shortness of breath over the last couple of days. The patient presented to [facility] Emergency Room. The patient was found to have oxygen saturation of 85% on room air. The patient was placed emergently on BiPAP. The patient was admitted for respiratory failure. REVIEW OF SYSTEMS: Unable to assess secondary to the patient's mental status. PAST MEDICAL HISTORY: Significant for: 1. Chronic obstructive pulmonary disease. 2. Diabetes type 2. 3. Hypertension. 4. Coronary artery disease. PAST SURGICAL HISTORY: Significant for coronary artery bypass graft. CURRENT MEDICATIONS: The patient denies. ALLERGIES: No known drug allergies. SOCIAL HISTORY: The patient is . Denies tobacco or alcohol use. PHYSICAL EXAMINATION: VITAL SIGNS: Temperature 98.1, respirations 20, pulse 65, and blood pressure 167/68. GENERAL: The patient is a well-developed and well-nourished white male, in moderate respiratory distress. HEENT: Eyes, pupils are equal and responsive to light and accommodation. Extraocular movements are intact. NECK: Supple without lymphadenopathy. CHEST: Lungs decreased breath sounds at bilateral bases with diffuse wheezes bilaterally. ABDOMEN: Soft, nontender, and nondistended. Positive bowel sounds. No evidence of hepatosplenomegaly. Currently, no rebound or guarding noted. EXTREMITIES: Negative for clubbing, cyanosis, or edema. RECTAL/GENITAL: Refused. NEUROLOGIC: Cranial nerves II through XII are grossly intact without focal deficits. Motor strength is 5/5 bilaterally. Deep tendon reflexes are 2+ plantar. LABORATORY STUDIES: WBC 8.2, hemoglobin 11.2, hematocrit 33.8, and platelets 113,000. Sodium 140, potassium 4.6, chloride 106, CO2 23, BUN 32, and creatinine 2.2. Glucose 81. Troponin elevated at 0.153. BNP elevated at 3778. Chest x-ray, bilateral mid and lower lung infiltrates. ASSESSMENT: This is an 88-year-old white male with: 1. Pneumonia. 2. Respiratory failure. 3. Renal failure. 4. Congestive heart failure. 5. Chronic obstructive pulmonary disease. 6. Diabetes type 2. 7. Hypertension. 8. Coronary artery disease. TREATMENT: 1. Pneumonia/respiratory failure. A Pulmonary consultation has been obtained with Dr. Srini Mckay. The patient is currently on ceftriaxone and vancomycin. The patient is currently on BiPAP. The patient has been started empirically on ceftriaxone and vancomycin. We will follow recommendations of Pulmonary. 2. Renal failure. A Nephrology consultation has been obtained with Dr. Blanco. We will follow recommendation of Nephrology. 3. Congestive heart failure. A Cardiology consultation has been obtained with Dr. Edvin Andino. We will follow recommendations of Cardiology. 4. Chronic obstructive pulmonary disease. As above, a Pulmonary consultation has been obtained with Dr. Srini Mckay. 5. Diabetes type 2. The patient is stable off insulin at this time. 6. Coronary artery disease. 7. Hypertension. The patient has been started empirically on intravenous Lasix given elevated BNP. Lisandro Munguia M.D. DR: JENNIFER JOB#: [id number] CC:
--- NOTE | 2018-11-08 20:49 | Cardiology Progress Note ---
Assessment/Plan Assessment/Plan [id number] full note dicated hhn diruetic echo trop ekg asa statin avodi bb Objective Last 24 Hour Vital Signs Date Time Temp Pulse Resp B/P (MAP) Pulse Ox O2 Delivery O2 Flow Rate FiO2 11/08/18 20:14 Nasal Cannula 5.0 40 11/08/18 20:14 95 Nasal Cannula 5.0 40 11/08/18 16:44 67 22 100 Nasal Cannula 4.0 36 11/08/18 16:40 66 22 Nasal Cannula 5.0 40 11/08/18 16:38 66 22 99 Nasal Cannula 5.0 40 11/08/18 16:00 Nasal Cannula 3.0 Nasal Cannula 3.0 11/08/18 16:00 97.7 65 20 133/45 (74) 99 11/08/18 15:48 65 11/08/18 15:41 143/51 11/08/18 12:00 97.5 62 20 147/50 (82) 97 11/08/18 12:00 Nasal Cannula 3.0 Nasal Cannula 3.0 11/08/18 11:42 64 11/08/18 08:02 62 11/08/18 08:00 97.2 64 22 134/58 (83) 98 11/08/18 08:00 Nasal Cannula 3.0 Nasal Cannula 3.0 11/08/18 04:00 Nasal Cannula 3.0 11/08/18 04:00 61 11/08/18 03:45 97.8 66 17 125/61 97 Nasal Cannula 3.0 30 11/08/18 03:30 Nasal Cannula 3.0 11/08/18 03:30 96.8 67 17 120/50 (73) 96 11/08/18 02:16 67 20 100 Bi-pap 30 11/08/18 01:52 65 19 100 Bi-pap 30 11/08/18 01:51 64 19 100 Bi-pap 30 11/08/18 01:50 73 22 Bi-pap 40 11/08/18 01:42 68 20 99 Bi-pap 40 11/08/18 01:42 67 20 99 Bi-pap 40 11/08/18 01:31 77 20 99 Bi-pap 40 11/08/18 01:15 65 99 Facial 40 11/08/18 00:48 98.1 66 20 167/68 99 Bi-pap 5.0 11/08/18 00:48 65 19 Bi-pap 5.0 11/08/18 00:41 64 20 180/62 99 Bi-pap 5.0 Intake and Output 11/07/18 11/08/18 19:00 07:00 Intake Total 100 ml Output Total 0 ml Balance 100 ml Intake Oral 100 ml Output Urine Total 0 ml Laboratory Tests Test 11/08/18 00:56 11/08/18 01:40 11/08/18 02:22 11/08/18 14:19 Arterial Blood pH 7.373 (7.350-7.450) Arterial Blood Partial Pressure CO2 41.2 mmHg (35.0-45.0) Arterial Blood Partial Pressure O2 142.2 mmHg (75.0-100.0) H Arterial Blood HCO3 23.4 mmol/L (22.0-26.0) Arterial Blood Oxygen Saturation 98.1 % (95-100) Arterial Blood Base Excess -1.7 (-2-2) Tino Test Positive White Blood Count 8.2 K/UL (4.8-10.8) Red Blood Count 3.66 M/UL (4.70-6.10) L Hemoglobin 11.2 G/DL (14.2-18.0) L Hematocrit 33.8 % (42.0-52.0) L Mean Corpuscular Volume 92 FL (80-99) Mean Corpuscular Hemoglobin 30.5 PG (27.0-31.0) Mean Corpuscular Hemoglobin Concent 33.1 G/DL (32.0-36.0) Red Cell Distribution Width 13.6 % (11.6-14.8) Platelet Count 113 K/UL (150-450) L Mean Platelet Volume 10.7 FL (6.5-10.1) H Neutrophils (%) (Auto) 68.0 % (45.0-75.0) Lymphocytes (%) (Auto) 13.1 % (20.0-45.0) L Monocytes (%) (Auto) 13.7 % (1.0-10.0) H Eosinophils (%) (Auto) 4.2 % (0.0-3.0) H Basophils (%) (Auto) 1.0 % (0.0-2.0) Sodium Level 140 MMOL/L (136-145) Potassium Level 4.6 MMOL/L (3.5-5.1) Chloride Level 106 MMOL/L (98-107) Carbon Dioxide Level 23 MMOL/L (21-32) Anion Gap 11 mmol/L (5-15) Blood Urea Nitrogen 32 mg/dL (7-18) H Creatinine 2.2 MG/DL (0.55-1.30) H Estimat Glomerular Filtration Rate mL/min (>60) Glucose Level 81 MG/DL (74-106) Lactic Acid Level 1.10 mmol/L (0.4-2.0) Uric Acid 10.1 MG/DL (2.6-7.2) H Calcium Level 8.8 MG/DL (8.5-10.1) Total Bilirubin 0.4 MG/DL (0.2-1.0) Aspartate Amino Transf (AST/SGOT) 24 U/L (15-37) Alanine Aminotransferase (ALT/SGPT) 27 U/L (12-78) Alkaline Phosphatase 72 U/L (46-116) Total Creatine Kinase 229 U/L (26-308) Creatine Kinase MB 3.2 NG/ML (0.0-3.6) Creatine Kinase MB Relative Index 1.3 Troponin I 0.153 ng/mL (0.000-0.056) Pro-B-Type Natriuretic Peptide 3778 pg/mL (0-125) H Total Protein 6.5 G/DL (6.4-8.2) Albumin 3.4 G/DL (3.4-5.0) Globulin 3.1 g/dL Albumin/Globulin Ratio 1.1 (1.0-2.7) Urine Color Yellow Pale yellow Urine Appearance Clear Clear Urine pH 5 (4.5-8.0) 5 (4.5-8.0) Urine Specific [place] 1.020 (1.005-1.035) 1.010 (1.005-1.035) Urine Protein 2+ (NEGATIVE) H Negative (NEGATIVE) Urine Glucose (UA) Negative (NEGATIVE) Negative (NEGATIVE) Urine Ketones Negative (NEGATIVE) Negative (NEGATIVE) Urine Blood 1+ (NEGATIVE) H 5+ (NEGATIVE) H Urine Nitrite Negative (NEGATIVE) Negative (NEGATIVE) Urine Bilirubin Negative (NEGATIVE) Negative (NEGATIVE) Urine Urobilinogen Normal MG/DL (0.0-1.0) Normal MG/DL (0.0-1.0) Urine Leukocyte Esterase 1+ (NEGATIVE) H Negative (NEGATIVE) Urine RBC 5-10 /HPF (0 - 0) H 2-4 /HPF (0 - 0) H Urine WBC 0-2 /HPF (0 - 0) 0 /HPF (0 - 0) Urine Squamous Epithelial Cells None /LPF (NONE/OCC) None /LPF (NONE/OCC) Urine Bacteria Few /HPF (NONE) None /HPF (NONE) Urine Eosinophils None seen (NONE SEEN) Urine Random Sodium 95 mmol/L (20-110) Urine Potassium Timed 25 mmol/L (12-62) Test 11/08/18 14:50 C-Reactive Protein, Quantitative 4.2 mg/dL (0.00-0.90) H Microbiology Date/Time Source Procedure Growth Status 11/08/18 02:22 Nasal Nares Influenza Types A,B Antigen ([facility]AN[facility]ES[facility]) - Final Complete Edvin Andino MD Nov 08, 2018 20:49
[2018-11-08] MEDS: Amiodarone 200mg tab ORAL SCH (21:17)
[2018-11-08] MEDS ORDERED: Cefepime 500mg in D5W 55ml IVPB SCH (22:00)
[2018-11-09] VITALS: BP 127/44
[2018-11-09] MEDS: Albuterol/Ipratropium 3ml neb HHN PRN ×2 (00:40→22:54)
--- NOTE | 2018-11-09 01:00 | Consultation ---
DATE OF CONSULTATION: 11/08/2018 CARDIOLOGY CONSULTATION CONSULTING PHYSICIAN: Edvin Andino M.D. REFERRING PHYSICIANS: 1. Srini Mckay M.D. 2. Tobin Medel M.D. REASON FOR REFERRAL: Shortness of breath. HISTORY OF PRESENT ILLNESS: This is an 88-year-old Bulgarian gentleman, who is usually followed at [facility]. The patient presented to the hospital because of several days of shortness of breath. Really, no coughing or wheezing and he was noted to have some abnormal laboratories and was admitted to the hospital. On detailed questioning, he has occasional chest pains, although not at the present time. He is not very ambulatory because of leg issues and uses one pillow at night. There are no PND episodes. There is no dizziness or lightheadedness. No heart pounding or palpitations. PAST MEDICAL HISTORY: He has significant past medical history from a cardiac point of view. He has a history of bioprosthetic aortic valve replacement in , BROWN to the LAD, saphenous vein graft to the obtuse marginal branch in October of 2009. He has chronic kidney disease, hypertension, history of borderline blood pressure. No sick sinus syndrome. Diabetes mellitus, peripheral neuropathy, pulmonary disease. He also has a history of significant chronic obstructive pulmonary disease, hyperlipidemia, diabetes mellitus, history of bladder cancer or kidney cancer, one of those status post resection, osteoarthritis of the knee, right shoulder surgery, hernia repair, prostatectomy, and right total knee arthroplasty. He does have a history of GI bleeding as well as aortic stenosis. ALLERGIES: He is not allergic to any medications. SOCIAL HISTORY: He used to be a heavy smoker. He smoked for more than 65 years. He quit in 2010. Occasional cigarette use still. No substance abuse. He is a . He lives in an apartment by himself. REVIEW OF SYSTEMS: GASTROINTESTINAL: He has a history of constipation and some black stools. GENITOURINARY: Negative. PULMONARY: Denies any coughing or wheezing. CONSTITUTIONAL: Denies any fevers, chills, or night sweats. PHYSICAL EXAMINATION: GENERAL: Shows to be an elderly gentleman, in no respiratory distress. LUNGS: He has some expiratory wheezes. CARDIAC: Regular rhythm. Systolic ejection murmur. No heaves or thrills noted. ABDOMEN: Soft and obese. Positive bowel sounds. EXTREMITIES: There is no edema. NEUROLOGIC: He is awake, alert, responsive, and in no apparent respiratory distress. LABORATORY AND DIAGNOSTIC DATA: White count of 8.3, hemoglobin 11.2, and platelet count of 113,000. Sodium is 140, potassium 4.3, chloride 106, bicarb 23, BUN of 32, creatinine 2.2, and glucose of 81. His uric acid is 10.1. Calcium is 8.8. His troponin is 0.153 and proBNP was 3778. Albumin is 3.4. Blood gases, pH of 7.37, pCO2 41, pO2 of 142, and bicarb of 23. His CRP was 42. Urinalysis shows 0 wbc's. His influenza swab was negative for influenza A and B and he did have a chest x-ray in the emergency room, bilateral infiltrates versus edema. His electrocardiogram showed sinus rhythm with nonspecific ST and T-wave abnormalities with biphasic T-waves in AVF and T-wave inversions in his feet. I am not able to download the images of his last EKG from [facility] unfortunately, but the reports provided showed sinus rhythm previously, first-degree AV block, left axis deviation, nonspecific T-wave changes with T-wave inversions in V3 documented on a prior EKG. ASSESSMENT: 1. Shortness of breath. 2. Bronchospasm. 3. History of chronic obstructive pulmonary disease. 4. History of coronary disease, status post two-vessel coronary bypass grafting. 5. History of aortic valve replacement. 6. History of chronic renal insufficiency. 7. History of possibly renal cancer, status post resection. 8. History of gastrointestinal bleed. PLAN: This patient was seen in cardiac consultation. It does not appear that he has any symptoms of chest pain at least at the present time, although he has experienced chest pain before. His cardiac enzymes should be repeated. An echocardiogram should be ordered for evaluation of LV systolic function as well as wall motion analysis. He does have some bronchospasm, which should be treated with some possibly beta-agonist inhalers and he should be considered from a component of diuretics. However, I am not sure if he does have a significant component of heart failure. Nevertheless, he should be treated at least for the time being. Further recommendations depending on the results of the echocardiogram and further EKGs. I will follow the patient along with you. Edvin Andino M.D. DR: TALYA JOB#: [id number] CC:
[2018-11-09 04:00] VITALS: BP 114/47
[2018-11-09 06:16] LABS: BASOPHILS % (AUTO) 1.5 % (0.0-2.0); EOSINOPHILS % (AUTO) 4.7 % (0.0-3.0); HEMATOCRIT 31.7 % (42.0-52.0); HEMOGLOBIN 10.4 G/DL (14.2-18.0); LYMPHOCYTES % (AUTO) 5.5 % (20.0-45.0); MEAN CORPUSCULAR VOLUME 93 FL (80-99); MONOCYTES % (AUTO) 12.2 % (1.0-10.0); NEUTROPHILS % (AUTO) 76.1 % (45.0-75.0); PLATELET COUNT 123 K/UL (150-450); RED CELL DISTRIBUTION WIDTH 13.2 % (11.6-14.8); WHITE BLOOD COUNT 7.3 K/UL (4.8-10.8)
[2018-11-09 06:58] LABS: ALANINE AMINOTRANSFERASE 23 U/L (12-78); ALKALINE PHOSPHATASE 66 U/L (46-116); ANION GAP 8 mmol/L (5-15); ASPARTATE AMINO TRANSFERASE 23 U/L (15-37); BILIRUBIN,TOTAL 0.4 MG/DL (0.2-1.0); BLOOD UREA NITROGEN 44 mg/dL (7-18); CALCIUM 9.2 MG/DL (8.5-10.1); CARBON DIOXIDE 25 MMOL/L (21-32); CHLORIDE 106 MMOL/L (98-107); CHOLESTEROL 172 MG/DL (< 200); CREATININE 2.4 MG/DL (0.55-1.30); FERRITIN 80 NG/ML (8-388); HDL CHOLESTEROL 34 MG/DL (40-60); SODIUM 139 MMOL/L (136-145); TRIGLYCERIDES 96 MG/DL (30-150)
[2018-11-09 07:03] LABS: CREATINE KINASE 165 U/L (26-308); GAMMA GLUTAMYL TRANSPEPTIDASE 42 U/L (5-85); PHOSPHORUS 6.1 MG/DL (2.5-4.9)
[2018-11-09 08:00] VITALS: BP 119/42
[2018-11-09 08:07] LABS: % IRON SATURATION 14 % (15-50); IRON 31 ug/dL (50-175); TOTAL IRON BINDING CAPACITY 228 ug/dL (250-450)
--- NOTE | 2018-11-09 08:36 | Infectious Diseases Prog Note ---
Assessment/Plan Assessment/Plan 88 yo male with PMHx of DM, Asthma and CAD who presented to the ED on 11/07/17 with SOB. CAP +/- CHF or Asthma CXR - B/L Infiltrates per ED read - Final read pending Aferbile No leukocytosis CAD HTN DM Asthma PLAN - Continue Ceftriaxone #2 and Azithromycin #2 - 11/08/18 SP Cefepime and vancomycin- - Monitor CBC and Temps - f/u Sputum Cx We will continue to follow the patient during this hospitalization. Subjective Allergies: Coded Allergies: No Known Allergies (Verified , 02/18/10) Subjective Afebrile No leukocytosis Satting well on NC Objective Vital Signs Last 24 Hour Vital Signs Date Time Temp Pulse Resp B/P (MAP) Pulse Ox O2 Delivery O2 Flow Rate FiO2 11/09/18 04:00 97.7 64 20 114/47 (69) 95 11/09/18 04:00 Nasal Cannula 3.0 Nasal Cannula 3.0 11/09/18 04:00 64 11/09/18 00:46 64 24 97 Nasal Cannula 4.0 36 11/09/18 00:37 Nasal Cannula 5.0 40 11/09/18 00:37 66 24 96 Nasal Cannula 5.0 40 11/09/18 00:00 97.4 67 24 127/44 (71) 96 11/09/18 00:00 Nasal Cannula 3.0 Nasal Cannula 3.0 11/09/18 00:00 67 11/08/18 21:16 72 137/71 11/08/18 20:14 Nasal Cannula 5.0 40 11/08/18 20:14 95 Nasal Cannula 5.0 40 11/08/18 20:00 98.1 66 20 137/41 (73) 95 11/08/18 20:00 71 11/08/18 20:00 Nasal Cannula 3.0 Nasal Cannula 3.0 11/08/18 16:44 67 22 100 Nasal Cannula 4.0 36 11/08/18 16:40 66 22 Nasal Cannula 5.0 40 11/08/18 16:38 66 22 99 Nasal Cannula 5.0 40 11/08/18 16:00 Nasal Cannula 3.0 Nasal Cannula 3.0 11/08/18 16:00 97.7 65 20 133/45 (74) 99 11/08/18 15:48 65 11/08/18 15:41 143/51 1/10/19 12:00 97.5 62 20 147/50 (82) 97 11/08/18 12:00 Nasal Cannula 3.0 Nasal Cannula 3.0 11/08/18 11:42 64 Height (Feet): 6 Height (Inches): 0.00 Weight (Pounds): 180 Objective Gen: NAD HEENT: NCAT, MMM, EOMI LUNGS: Course B/L , No W CARDS: RRR, S1, S2, No M/R/G, ABD: Soft, Obese, NT, ND, + BS NEURO: A/O x 3, Strength and sensation grossly intact. Microbiology Date/Time Source Procedure Growth Status 11/08/18 01:40 Blood Blood Culture - Preliminary NO GROWTH AFTER 24 HOURS Resulted 11/08/18 01:30 Blood Blood Culture - Preliminary NO GROWTH AFTER 24 HOURS Resulted 11/08/18 02:22 Nasal Nares Influenza Types A,B Antigen (FRANCHESCA) - Final Complete Laboratory Tests Test 11/08/18 14:19 11/08/18 14:50 11/09/18 04:00 Urine Color Pale yellow Urine Appearance Clear Urine pH 5 (4.5-8.0) Urine Specific [place] 1.010 (1.005-1.035) Urine Protein Negative (NEGATIVE) Urine Glucose (UA) Negative (NEGATIVE) Urine Ketones Negative (NEGATIVE) Urine Blood 5+ (NEGATIVE) H Urine Nitrite Negative (NEGATIVE) Urine Bilirubin Negative (NEGATIVE) Urine Urobilinogen Normal MG/DL (0.0-1.0) Urine Leukocyte Esterase Negative (NEGATIVE) Urine RBC 2-4 /HPF (0 - 0) H Urine WBC 0 /HPF (0 - 0) Urine Squamous Epithelial Cells None /LPF (NONE/OCC) Urine Bacteria None /HPF (NONE) Urine Eosinophils None seen (NONE SEEN) Urine Random Sodium 95 mmol/L (20-110) Urine Potassium Timed 25 mmol/L (12-62) C-Reactive Protein, Quantitative 4.2 mg/dL (0.00-0.90) H White Blood Count 7.3 K/UL (4.8-10.8) Red Blood Count 3.40 M/UL (4.70-6.10) L Hemoglobin 10.4 G/DL (14.2-18.0) L Hematocrit 31.7 % (42.0-52.0) L Mean Corpuscular Volume 93 FL (80-99) Mean Corpuscular Hemoglobin 30.6 PG (27.0-31.0) Mean Corpuscular Hemoglobin Concent 32.8 G/DL (32.0-36.0) Red Cell Distribution Width 13.2 % (11.6-14.8) Platelet Count 123 K/UL (150-450) L Mean Platelet Volume 11.6 FL (6.5-10.1) H Neutrophils (%) (Auto) 76.1 % (45.0-75.0) H Lymphocytes (%) (Auto) 5.5 % (20.0-45.0) L Monocytes (%) (Auto) 12.2 % (1.0-10.0) H Eosinophils (%) (Auto) 4.7 % (0.0-3.0) H Basophils (%) (Auto) 1.5 % (0.0-2.0) Sodium Level 139 MMOL/L (136-145) Potassium Level 5.0 MMOL/L (3.5-5.1) Chloride Level 106 MMOL/L (98-107) Carbon Dioxide Level 25 MMOL/L (21-32) Anion Gap 8 mmol/L (5-15) Blood Urea Nitrogen 44 mg/dL (7-18) H Creatinine 2.4 MG/DL (0.55-1.30) H Estimat Glomerular Filtration Rate mL/min (>60) Glucose Level 109 MG/DL (74-106) H Hemoglobin A1c 5.3 % (4.3-6.0) Uric Acid 10.4 MG/DL (2.6-7.2) H Calcium Level 9.2 MG/DL (8.5-10.1) Phosphorus Level 6.1 MG/DL (2.5-4.9) H Magnesium Level 1.9 MG/DL (1.8-2.4) Iron Level 31 ug/dL (50-175) L Total Iron Binding Capacity 228 ug/dL (250-450) L Percent Iron Saturation 14 % (15-50) L Unsaturated Iron Binding 197 ug/dL (112-346) Ferritin 80 NG/ML (8-388) Total Bilirubin 0.4 MG/DL (0.2-1.0) Gamma Glutamyl Transpeptidase 42 U/L (5-85) Aspartate Amino Transf (AST/SGOT) 23 U/L (15-37) Alanine Aminotransferase (ALT/SGPT) 23 U/L (12-78) Alkaline Phosphatase 66 U/L (46-116) Total Creatine Kinase 165 U/L (26-308) Troponin I 0.152 ng/mL (0.000-0.056) Pro-B-Type Natriuretic Peptide 3741 pg/mL (0-125) H Total Protein 6.1 G/DL (6.4-8.2) L Albumin 3.0 G/DL (3.4-5.0) L Globulin 3.1 g/dL Albumin/Globulin Ratio 1.0 (1.0-2.7) Triglycerides Level 96 MG/DL (30-150) Cholesterol Level 172 MG/DL (< 200) LDL Cholesterol 126 mg/dL (<100) H HDL Cholesterol 34 MG/DL (40-60) L Cholesterol/HDL Ratio 5.1 (3.3-4.4) H Vitamin B12 Level 451 PG/ML (193-986) Folate 49.1 NG/ML (8.6-58.9) Thyroid Stimulating Hormone (TSH) 2.803 uiU/mL (0.358-3.740) Current Medications Medications (Trade) Dose Ordered Sig/Nathan Route PRN Reason Start Time Stop Time Status Last Admin Dose Admin Acetaminophen (Tylenol) 650 mg Q4H PRN ORAL fever 11/08/18 07:45 12/08/18 07:44 Albuterol/ Ipratropium (Albuterol/ Ipratropium) 3 ml Q4H PRN HHN Shortness of Breath 11/08/18 07:45 11/13/18 07:44 11/09/18 00:40 Allopurinol (Zyloprim) 200 mg DAILY ORAL 11/09/18 09:00 12/09/18 08:59 Amiodarone HCl (Cordarone) 100 mg Q24H ORAL 11/08/18 21:00 12/08/18 20:59 11/08/18 21:17 Aspirin (ASA) 162 mg DAILY ORAL 11/08/18 14:30 12/08/18 14:29 11/08/18 15:39 Azithromycin (Zithromax) 250 mg DAILY ORAL 11/09/18 09:00 11/16/18 08:59 Carvedilol (Coreg) 3.125 mg EVERY 12 HOURS ORAL 11/08/18 09:00 12/08/18 08:59 11/08/18 21:16 Ceftriaxone Sodium 1 gm/ Dextrose 55 ml @ 110 mls/hr Q24H IVPB 11/08/18 10:00 11/15/18 09:59 11/08/18 10:38 Heparin Sodium (Porcine) (Heparin 5000 units/ml) 5,000 units EVERY 12 HOURS SUBQ 11/08/18 09:00 12/08/18 08:59 11/08/18 21:18 Isosorbide Mononitrate (Imdur) 30 mg DAILY ORAL 11/09/18 09:00 12/09/18 08:59 Nitroglycerin (Ntg) 0.4 mg Q5M PRN SL Prn Chest Pain 11/08/18 07:45 12/08/18 07:44 Ondansetron HCl (Zofran) 4 mg Q6H PRN IVP Nausea & Vomiting 11/08/18 07:45 12/08/18 07:44 Pantoprazole (Protonix) 40 mg DAILY ORAL 11/09/18 09:00 12/09/18 08:59 Polyethylene Glycol (Miralax) 17 gm DAILYPRN PRN ORAL Constipation 11/08/18 07:45 12/08/18 07:44 11/08/18 17:14 Pravastatin Sodium (Pravachol) 40 mg BEDTIME ORAL 11/08/18 21:00 12/08/18 20:59 11/08/18 21:16 Promethazine HCl/ Codeine (Phenergan with Codeine) 5 ml Q4H PRN ORAL For Cough 11/08/18 07:45 12/08/18 07:44 Temazepam (Restoril) 15 mg HSPRN PRN ORAL Insomnia 11/08/18 07:45 11/15/18 07:44 Nic Mccall MD Nov 09, 2018 08:36
[2018-11-09] MEDS ORDERED: Allopurinol 100mg Tab ORAL SCH (09:00)
[2018-11-09] MEDS: Nitroglycerin Subl 0.4mg tab SL PRN ×3 (09:03→09:15)
--- NOTE | 2018-11-09 09:05 | NUR ---
NURSE NOTES: pt. complaining of 4/10 chest pain - will administer nitro X'a3 and ASA- and continue to monitor pt.
[2018-11-09] MEDS: Aspirin Baby 81mg ORAL SCH (09:06)
--- NOTE | 2018-11-09 09:13 | NUR ---
NURSE NOTES: Charge nurse Veda, notified DR. Andino of chest pain and that nitro was being given- per DR. Andino to order chest x-ray stat for chest pain, venous duplex and EKG- doctor aware of troponin levels trending down this am- will continue to monitor pt. and with plan of care.
--- NOTE | 2018-11-09 09:15 | NUR ---
NURSE NOTES: after administering 3 doses of nitro- pt. stating he is feeling better. will continue to monitor pt. and with plan of care.
[2018-11-09] MEDS: Imdur 30mg tab ORAL SCH (09:21)
--- NOTE | 2018-11-09 09:26 | NUR ---
RADIOLOGY DEPT CHEST X-RAY DONE.-P.DYE
[2018-11-09] MEDS: Heparin 5000 units/ml inj SUBQ SCH ×2 (09:32→21:19)
[2018-11-09] MEDS: Azithromycin 250mg tab ORAL SCH (09:32)
[2018-11-09] MEDS: cefTRIAXone 1 GM in D5W 55 ML IVPB SCH (09:40)
--- NOTE | 2018-11-09 09:41 | NUR ---
NURSE NOTES: DR. Andino was notified of EKG results- no new orders were given- pt. remains stable and no signs of distress noted.
--- NOTE | 2018-11-09 09:57 | Physician Query ---
--------- THIS DOCUMENT IS A PERMANENT PART OF THE MEDICAL RECORD --------- PLEASE COMPLETE THE DOCUMENT BEFORE SIGNING Dear Dr. Edvin Andino Date: 11/09/18 Vegetable Preparer/CDS Name: Katherine Amezcua, CCS, CERTIFIED CAREGIVER Exercise your independent professional judgment when responding to query. Question asked do not imply a particular answer is desired/expected Clinical Documentation States: "Heart Failure / CHF" mentioned as a diagnosis in Consultation - I am not sure if he does have a significant component of heart failure. Nevertheless, he should be treated at least for the time being. Clinical Findings Show: BNP : 11/08/18 3778 11/09/18 3741 Echocardiogram: Mild LV enlargment, LV EF: 55% Please Clarify: Acuity: [] Acute [] Chronic [] Acute on Chronic Type: [] Systolic [] Diastolic [] Systolic & Diastolic (Combined) [] Left Heart failure [] Other: Etiology: [] CHF due to Hypertension [] Cardiomyopathy [] Valvular Heart Disease [] Coronary Artery Disease [] Unable to determine [] Other: ( ) Patient does not have Heart Failure Please also document in your Progress Notes and/or Discharge Summary and indicate if the condition was present on admission. Edvin Andino M.D. Date & Time: [facility]
--- NOTE | 2018-11-09 10:28 | NUR ---
NURSE NOTES: pt. remains stable - appears to be in bed comfortable sleeping, Vital signs taken 135/52 pusle 65- DR. Mckay at bedside - pt. denies chest pain when woken up to be asked- will continue to monitor pt,. and with plan of care.
--- NOTE | 2018-11-09 10:37 | Pulmonology Progress Note ---
Assessment/Plan Problems: (1) Acute respiratory failure (2) Non-ST elevation (NSTEMI) myocardial infarction (3) COPD (chronic obstructive pulmonary disease) (4) Pulmonary edema (5) Hx of CABG (6) CAD (coronary artery disease) (7) Diabetes mellitus (8) HTN (hypertension) Assessment/Plan Echo reviewed, EF is 55% respiratory treatment check sputum, still pending prn diuretics ( he got lasix 40 in ER) f/u electrolytes and renal US titrate fio2 to saturation of 92% sliding scale diabetic diet dvt prophylaxis. Subjective Interval Events: episodes of dyspnea Allergies: Coded Allergies: No Known Allergies (Verified , 02/18/10) Objective Last 24 Hour Vital Signs Date Time Temp Pulse Resp B/P (MAP) Pulse Ox O2 Delivery O2 Flow Rate FiO2 11/09/18 10:27 65 135/52 11/09/18 09:21 111/45 11/09/18 09:20 Nasal Cannula 5.0 40 11/09/18 09:20 71 20 Nasal Cannula 5.0 40 11/09/18 09:15 111/41 11/09/18 09:09 119/45 11/09/18 09:03 119/48 11/09/18 07:37 71 11/09/18 04:00 97.7 64 20 114/47 (69) 95 11/09/18 04:00 Nasal Cannula 3.0 Nasal Cannula 3.0 11/09/18 04:00 64 11/09/18 00:46 64 24 97 Nasal Cannula 4.0 36 11/09/18 00:37 Nasal Cannula 5.0 40 11/09/18 00:37 66 24 96 Nasal Cannula 5.0 40 11/09/18 00:00 97.4 67 24 127/44 (71) 96 11/09/18 00:00 Nasal Cannula 3.0 Nasal Cannula 3.0 11/09/18 00:00 67 11/08/18 21:16 72 137/71 11/08/18 20:14 Nasal Cannula 5.0 40 11/08/18 20:14 95 Nasal Cannula 5.0 40 11/08/18 20:00 98.1 66 20 137/41 (73) 95 11/08/18 20:00 71 11/08/18 20:00 Nasal Cannula 3.0 Nasal Cannula 3.0 11/08/18 16:44 67 22 100 Nasal Cannula 4.0 36 11/08/18 16:40 66 22 Nasal Cannula 5.0 40 11/08/18 16:38 66 22 99 Nasal Cannula 5.0 40 11/08/18 16:00 Nasal Cannula 3.0 Nasal Cannula 3.0 11/08/18 16:00 97.7 65 20 133/45 (74) 99 11/08/18 15:48 65 11/08/18 15:41 143/51 11/08/18 12:00 97.5 62 20 147/50 (82) 97 11/08/18 12:00 Nasal Cannula 3.0 Nasal Cannula 3.0 11/08/18 11:42 64 Intake and Output 11/08/18 11/09/18 19:00 07:00 Intake Total 55 ml Output Total 950 ml 375 ml Balance -895 ml -375 ml IV Total 55 ml Output Urine Total 950 ml 375 ml General Appearance: WD/WN HEENT: normocephalic Respiratory/Chest: chest wall non-tender, lungs clear Abdomen: normal bowel sounds, no organomegaly, no scars Extremities: no cyanosis Skin: no lesions Neurologic/Psychiatric: infusion therapy nurse II-XII grossly normal Microbiology Date/Time Source Procedure Growth Status 11/08/18 01:40 Blood Blood Culture - Preliminary NO GROWTH AFTER 24 HOURS Resulted 11/08/18 01:30 Blood Blood Culture - Preliminary NO GROWTH AFTER 24 HOURS Resulted 11/08/18 02:22 Nasal Nares Influenza Types A,B Antigen (FRANCHESCA) - Final Complete Laboratory Tests 11/08/18 14:19: Urine Color Pale yellow, Urine Appearance Clear, Urine pH 5, Urine Specific [place] 1.010, Urine Protein Negative, Urine Glucose (UA) Negative, Urine Ketones Negative, Urine Blood 5+H, Urine Nitrite Negative, Urine Bilirubin Negative, Urine Urobilinogen Normal, Urine Leukocyte Esterase Negative, Urine RBC 2-4H, Urine WBC 0, Urine Squamous Epithelial Cells None, Urine Bacteria None , Urine Eosinophils None seen, Urine Random Sodium 95, Urine Potassium Timed 25 11/08/18 14:50: C-Reactive Protein, Quantitative 4.2H 11/09/18 04:00: White Blood Count 7.3, Red Blood Count 3.40L, Hemoglobin 10.4L, Hematocrit 31.7L , Mean Corpuscular Volume 93, Mean Corpuscular Hemoglobin 30.6, Mean Corpuscular Hemoglobin Concent 32.8, Red Cell Distribution Width 13.2, Platelet Count 123L, Mean Platelet Volume 11.6H, Neutrophils (%) (Auto) 76.1H, Lymphocytes (%) (Auto) 5.5L, Monocytes (%) (Auto) 12.2H, Eosinophils (%) (Auto) 4.7H, Basophils (%) (Auto) 1.5, Sodium Level 139, Potassium Level 5.0, Chloride Level 106, Carbon Dioxide Level 25, Anion Gap 8, Blood Urea Nitrogen 44H, Creatinine 2.4H, Estimat Glomerular Filtration Rate , Glucose Level 109H, Hemoglobin A1c 5.3, Uric Acid 10.4H, Calcium Level 9.2, Phosphorus Level 6.1H, Magnesium Level 1.9, Iron Level 31L, Total Iron Binding Capacity 228L, Percent Iron Saturation 14L, Unsaturated Iron Binding 197, Ferritin 80, Total Bilirubin 0.4, Gamma Glutamyl Transpeptidase 42, Aspartate Amino Transf (AST/SGOT) 23, Alanine Aminotransferase (ALT/SGPT) 23, Alkaline Phosphatase 66, Total Creatine Kinase 165, Troponin I 0.152H, Pro-B-Type Natriuretic Peptide 3741H, Total Protein 6.1L, Albumin 3.0L, Globulin 3.1, Albumin/Globulin Ratio 1.0, Triglycerides Level 96, Cholesterol Level 172, LDL Cholesterol 126H, HDL Cholesterol 34L, Cholesterol/HDL Ratio 5.1H, Vitamin B12 Level 451, Folate 49.1 , Thyroid Stimulating Hormone (TSH) 2.803 Current Medications Medications (Trade) Dose Ordered Sig/Anthan Route PRN Reason Start Time Stop Time Status Last Admin Dose Admin Acetaminophen (Tylenol) 650 mg Q4H PRN ORAL fever 11/08/18 07:45 12/08/18 07:44 Albuterol/ Ipratropium (Albuterol/ Ipratropium) 3 ml Q4H PRN HHN Shortness of Breath 11/08/18 07:45 11/13/18 07:44 11/09/18 00:40 Allopurinol (Zyloprim) 200 mg DAILY ORAL 11/09/18 09:00 12/09/18 08:59 11/09/18 09:32 Amiodarone HCl (Cordarone) 100 mg Q24H ORAL 11/08/18 21:00 12/08/18 20:59 11/08/18 21:17 Aspirin (ASA) 162 mg DAILY ORAL 11/08/18 14:30 12/08/18 14:29 11/09/18 09:06 Azithromycin (Zithromax) 250 mg DAILY ORAL 11/09/18 09:00 11/16/18 08:59 11/09/18 09:32 Carvedilol (Coreg) 3.125 mg EVERY 12 HOURS ORAL 11/08/18 09:00 12/08/18 08:59 11/09/18 10:27 Ceftriaxone Sodium 1 gm/ Dextrose 55 ml @ 110 mls/hr Q24H IVPB 11/08/18 10:00 11/15/18 09:59 11/09/18 09:40 Heparin Sodium (Porcine) (Heparin 5000 units/ml) 5,000 units EVERY 12 HOURS SUBQ 11/08/18 09:00 12/08/18 08:59 11/09/18 09:32 Isosorbide Mononitrate (Imdur) 30 mg DAILY ORAL 11/09/18 09:00 12/09/18 08:59 11/09/18 09:21 Nitroglycerin (Ntg) 0.4 mg Q5M PRN SL Prn Chest Pain 11/08/18 07:45 12/08/18 07:44 11/09/18 09:15 Ondansetron HCl (Zofran) 4 mg Q6H PRN IVP Nausea & Vomiting 11/08/18 07:45 12/08/18 07:44 Pantoprazole (Protonix) 40 mg DAILY ORAL 11/09/18 09:00 12/09/18 08:59 11/09/18 09:32 Polyethylene Glycol (Miralax) 17 gm DAILYPRN PRN ORAL Constipation 11/08/18 07:45 12/08/18 07:44 11/08/18 17:14 Pravastatin Sodium (Pravachol) 40 mg BEDTIME ORAL 11/08/18 21:00 12/08/18 20:59 11/08/18 21:16 Promethazine HCl/ Codeine (Phenergan with Codeine) 5 ml Q4H PRN ORAL For Cough 11/08/18 07:45 12/08/18 07:44 Temazepam (Restoril) 15 mg HSPRN PRN ORAL Insomnia 11/08/18 07:45 11/15/18 07:44 Srini Mckay MD Nov 09, 2018 10:37
--- NOTE | 2018-11-09 10:58 | NUR ---
CASE MANAGEMENT: REVIEW SI: RESP DISTRESS T 97.3 HR 61 RR 22 BP 111/41 SAT 96% NC/3L H/H 10.4/31.7 TROPONIN I 0.152 IS: AZITHROMYCIN PO QD PROTONIX PO QD ISOSORBIDE PO QD AMIODARONE PO Q24HR ASA PO QD CEFTRIAXONE IV Q24HR COREG PO Q12HR STEP DOWN UNIT STATUS DCP: PATIENT IS FROM HOME PLAN: SPUTUM CX
--- NOTE | 2018-11-09 11:52 | Diagnostic Imaging Report ---
Indication: Dyspnea Comparison: 11/08/2018 A single view chest radiograph was obtained. Findings: Interstitial edema is present with cardiomegaly and probable bilateral pleural effusions. Sternotomy is noted. Accounting for some differences in technique and positioning there is probably no change. IMPRESSION: Interstitial pulmonary edema/CHF
[2018-11-09 12:00] VITALS: BP 124/54
--- NOTE | 2018-11-09 12:01 | NUR ---
HAND-OFF: Report given to Magalie RN, pt. remains stable and no signs of distress noted. Aware to follow up on orders.
--- NOTE | 2018-11-09 12:10 | NUR ---
NURSE NOTES: Report received from [place] RN.Pt resting in bed awake,watching TV episode,denies any c/o chest pain,verbalized feeling much better,SR on the monitor ,skin warm and dry,IV site to LFA intact,HOB elevated SR up x2, bed lock in lowest position,will continue with plan of care.
--- NOTE | 2018-11-09 15:06 | Nephrology Progress Note ---
Assessment/Plan Problem List: (1) Acute on chronic renal failure (2) History of unilateral nephrectomy (3) Low iron stores (4) Non-ST elevation (NSTEMI) myocardial infarction (5) CAD (coronary artery disease) Assessment Renal insufficiency due to combination of ONE functioning kidney and underlying DM and HTN Proteinuria indicative of Nephropathy -. Chronic obstructive pulmonary disease. -. Diabetes type 2. -. Hypertension. -. Coronary artery disease. elevated troponin Plan Plan: Optimize cardiac and Pulmonary status- monitor renal parameters- Avoid Nephrotoxics- urine studies Allopurinol Nitrate ASA Subjective ROS Limited/Unobtainable: No Constitutional: Reports: malaise, weakness Objective Objective Last 24 Hour Vital Signs Date Time Temp Pulse Resp B/P (MAP) Pulse Ox O2 Delivery O2 Flow Rate FiO2 11/09/18 12:00 67 11/09/18 12:00 Nasal Cannula 3.0 Nasal Cannula 3.0 11/09/18 12:00 98.1 65 22 124/54 (77) 96 11/09/18 10:27 65 135/52 11/09/18 09:21 111/45 11/09/18 09:20 Nasal Cannula 5.0 40 11/09/18 09:20 71 20 Nasal Cannula 5.0 40 11/09/18 09:15 111/41 11/09/18 09:09 119/45 11/09/18 09:03 119/48 11/09/18 08:00 97.3 61 22 119/42 (67) 96 11/09/18 08:00 Nasal Cannula 3.0 Nasal Cannula 3.0 11/09/18 07:37 71 11/09/18 04:00 97.7 64 20 114/47 (69) 95 11/09/18 04:00 Nasal Cannula 3.0 Nasal Cannula 3.0 11/09/18 04:00 64 11/09/18 00:46 64 24 97 Nasal Cannula 4.0 36 11/09/18 00:37 Nasal Cannula 5.0 40 11/09/18 00:37 66 24 96 Nasal Cannula 5.0 40 11/09/18 00:00 97.4 67 24 127/44 (71) 96 11/09/18 00:00 Nasal Cannula 3.0 Nasal Cannula 3.0 11/09/18 00:00 67 11/08/18 21:16 72 137/71 11/08/18 20:14 Nasal Cannula 5.0 40 11/08/18 20:14 95 Nasal Cannula 5.0 40 11/08/18 20:00 98.1 66 20 137/41 (73) 95 11/08/18 20:00 71 11/08/18 20:00 Nasal Cannula 3.0 Nasal Cannula 3.0 11/08/18 16:44 67 22 100 Nasal Cannula 4.0 36 11/08/18 16:40 66 22 Nasal Cannula 5.0 40 11/08/18 16:38 66 22 99 Nasal Cannula 5.0 40 11/08/18 16:00 Nasal Cannula 3.0 Nasal Cannula 3.0 11/08/18 16:00 97.7 65 20 133/45 (74) 99 11/08/18 15:48 65 11/08/18 15:41 143/51 Intake and Output 11/08/18 11/09/18 18:59 06:59 Intake Total 55 ml Output Total 950 ml 375 ml Balance -895 ml -375 ml IV Total 55 ml Output Urine Total 950 ml 375 ml Laboratory Tests 11/09/18 04:00: White Blood Count 7.3, Red Blood Count 3.40L, Hemoglobin 10.4L, Hematocrit 31.7L , Mean Corpuscular Volume 93, Mean Corpuscular Hemoglobin 30.6, Mean Corpuscular Hemoglobin Concent 32.8, Red Cell Distribution Width 13.2, Platelet Count 123L, Mean Platelet Volume 11.6H, Neutrophils (%) (Auto) 76.1H, Lymphocytes (%) (Auto) 5.5L, Monocytes (%) (Auto) 12.2H, Eosinophils (%) (Auto) 4.7H, Basophils (%) (Auto) 1.5, Sodium Level 139, Potassium Level 5.0, Chloride Level 106, Carbon Dioxide Level 25, Anion Gap 8, Blood Urea Nitrogen 44H, Creatinine 2.4H, Estimat Glomerular Filtration Rate , Glucose Level 109H, Hemoglobin A1c 5.3, Uric Acid 10.4H, Calcium Level 9.2, Phosphorus Level 6.1H, Magnesium Level 1.9, Iron Level 31L, Total Iron Binding Capacity 228L, Percent Iron Saturation 14L, Unsaturated Iron Binding 197, Ferritin 80, Total Bilirubin 0.4, Gamma Glutamyl Transpeptidase 42, Aspartate Amino Transf (AST/SGOT) 23, Alanine Aminotransferase (ALT/SGPT) 23, Alkaline Phosphatase 66, Total Creatine Kinase 165, Troponin I 0.152H, Pro-B-Type Natriuretic Peptide 3741H, Total Protein 6.1L, Albumin 3.0L, Globulin 3.1, Albumin/Globulin Ratio 1.0, Triglycerides Level 96, Cholesterol Level 172, LDL Cholesterol 126H, HDL Cholesterol 34L, Cholesterol/HDL Ratio 5.1H, Vitamin B12 Level 451, Folate 49.1 , Thyroid Stimulating Hormone (TSH) 2.803 Height (Feet): 6 Height (Inches): 0.00 Weight (Pounds): 180 General Appearance: no apparent distress Cardiovascular: normal rate Respiratory/Chest: decreased breath sounds Abdomen: soft Jeff Blanco MD Nov 09, 2018 15:06
[2018-11-09 16:00] VITALS: BP 132/49
--- NOTE | 2018-11-09 16:00 | NUR ---
NURSE NOTES: Pt resting in bed,stable no episode of chest pain presented.
[2018-11-09] MEDS ORDERED: Tubing IV Secondary IV ONE (16:12)
[2018-11-09] MEDS ORDERED: NS 275ml ONE (16:12)
[2018-11-09] MEDS ORDERED: Iron Sucrose 200 MG in NS 110 ML IV ONE (17:00)
--- NOTE | 2018-11-09 17:53 | Cardiology Report ---
APPROVED REPORT EKG Measurement Heart [id number] Normal sinus rhythm Septal infarct, age undetermined Abnormal ECG
--- NOTE | 2018-11-09 18:08 | Internal Med Progress Note ---
Subjective Date of Service: Nov 09, 2018 Physician Name Lisandro Munguia Attending Physician Tobin Medel MD Current Medications Medications (Trade) Dose Ordered Sig/Nathan Route PRN Reason Start Time Stop Time Status Last Admin Dose Admin Acetaminophen (Tylenol) 650 mg Q4H PRN ORAL fever 11/08/18 07:45 12/08/18 07:44 Albuterol/ Ipratropium (Albuterol/ Ipratropium) 3 ml Q4H PRN HHN Shortness of Breath 11/08/18 07:45 11/13/18 07:44 11/09/18 00:40 Allopurinol (Allopurinol) 300 mg DAILY ORAL 11/10/18 09:00 12/09/18 08:59 Amiodarone HCl (Cordarone) 100 mg Q24H ORAL 11/08/18 21:00 12/08/18 20:59 11/08/18 21:17 Aspirin (ASA) 162 mg DAILY ORAL 11/08/18 14:30 12/08/18 14:29 11/09/18 09:06 Azithromycin (Zithromax) 250 mg DAILY ORAL 11/09/18 09:00 11/16/18 08:59 11/09/18 09:32 Carvedilol (Coreg) 3.125 mg EVERY 12 HOURS ORAL 11/08/18 09:00 12/08/18 08:59 11/09/18 10:27 Ceftriaxone Sodium 1 gm/ Dextrose 55 ml @ 110 mls/hr Q24H IVPB 11/08/18 10:00 11/15/18 09:59 11/09/18 09:40 Heparin Sodium (Porcine) (Heparin 5000 units/ml) 5,000 units EVERY 12 HOURS SUBQ 11/08/18 09:00 12/08/18 08:59 11/09/18 09:32 Isosorbide Mononitrate (Imdur) 30 mg DAILY ORAL 11/09/18 09:00 12/09/18 08:59 11/09/18 09:21 Nitroglycerin (Ntg) 0.4 mg Q5M PRN SL Prn Chest Pain 11/08/18 07:45 12/08/18 07:44 11/09/18 09:15 Ondansetron HCl (Zofran) 4 mg Q6H PRN IVP Nausea & Vomiting 11/08/18 07:45 12/08/18 07:44 Pantoprazole (Protonix) 40 mg DAILY ORAL 11/09/18 09:00 12/09/18 08:59 11/09/18 09:32 Polyethylene Glycol (Miralax) 17 gm DAILYPRN PRN ORAL Constipation 11/08/18 07:45 12/08/18 07:44 11/08/18 17:14 Pravastatin Sodium (Pravachol) 40 mg BEDTIME ORAL 11/08/18 21:00 12/08/18 20:59 11/08/18 21:16 Promethazine HCl/ Codeine (Phenergan with Codeine) 5 ml Q4H PRN ORAL For Cough 11/08/18 07:45 12/08/18 07:44 Temazepam (Restoril) 15 mg HSPRN PRN ORAL Insomnia 11/08/18 07:45 11/15/18 07:44 Allergies: Coded Allergies: No Known Allergies (Verified , 02/18/10) ROS Limited/Unobtainable: Yes Subjective 88 YO M admitted with shortness of breath, now pneumonia. Cover for Int Med-Dr Medel. MARZENA. Tolerating nasal canula Objective Last Vital Signs Date Time Temp Pulse Resp B/P (MAP) Pulse Ox O2 Delivery O2 Flow Rate FiO2 11/09/18 16:14 Nasal Cannula 3.0 Nasal Cannula 3.0 11/09/18 16:00 97.7 64 24 132/49 (76) 95 11/09/18 09:20 40 Laboratory Tests Test 11/09/18 04:00 White Blood Count 7.3 K/UL (4.8-10.8) Red Blood Count 3.40 M/UL (4.70-6.10) L Hemoglobin 10.4 G/DL (14.2-18.0) L Hematocrit 31.7 % (42.0-52.0) L Mean Corpuscular Volume 93 FL (80-99) Mean Corpuscular Hemoglobin 30.6 PG (27.0-31.0) Mean Corpuscular Hemoglobin Concent 32.8 G/DL (32.0-36.0) Red Cell Distribution Width 13.2 % (11.6-14.8) Platelet Count 123 K/UL (150-450) L Mean Platelet Volume 11.6 FL (6.5-10.1) H Neutrophils (%) (Auto) 76.1 % (45.0-75.0) H Lymphocytes (%) (Auto) 5.5 % (20.0-45.0) L Monocytes (%) (Auto) 12.2 % (1.0-10.0) H Eosinophils (%) (Auto) 4.7 % (0.0-3.0) H Basophils (%) (Auto) 1.5 % (0.0-2.0) Sodium Level 139 MMOL/L (136-145) Potassium Level 5.0 MMOL/L (3.5-5.1) Chloride Level 106 MMOL/L (98-107) Carbon Dioxide Level 25 MMOL/L (21-32) Anion Gap 8 mmol/L (5-15) Blood Urea Nitrogen 44 mg/dL (7-18) H Creatinine 2.4 MG/DL (0.55-1.30) H Estimat Glomerular Filtration Rate mL/min (>60) Glucose Level 109 MG/DL (74-106) H Hemoglobin A1c 5.3 % (4.3-6.0) Uric Acid 10.4 MG/DL (2.6-7.2) H Calcium Level 9.2 MG/DL (8.5-10.1) Phosphorus Level 6.1 MG/DL (2.5-4.9) H Magnesium Level 1.9 MG/DL (1.8-2.4) Iron Level 31 ug/dL (50-175) L Total Iron Binding Capacity 228 ug/dL (250-450) L Percent Iron Saturation 14 % (15-50) L Unsaturated Iron Binding 197 ug/dL (112-346) Ferritin 80 NG/ML (8-388) Total Bilirubin 0.4 MG/DL (0.2-1.0) Gamma Glutamyl Transpeptidase 42 U/L (5-85) Aspartate Amino Transf (AST/SGOT) 23 U/L (15-37) Alanine Aminotransferase (ALT/SGPT) 23 U/L (12-78) Alkaline Phosphatase 66 U/L (46-116) Total Creatine Kinase 165 U/L (26-308) Troponin I 0.152 ng/mL (0.000-0.056) Pro-B-Type Natriuretic Peptide 3741 pg/mL (0-125) H Total Protein 6.1 G/DL (6.4-8.2) L Albumin 3.0 G/DL (3.4-5.0) L Globulin 3.1 g/dL Albumin/Globulin Ratio 1.0 (1.0-2.7) Triglycerides Level 96 MG/DL (30-150) Cholesterol Level 172 MG/DL (< 200) LDL Cholesterol 126 mg/dL (<100) H HDL Cholesterol 34 MG/DL (40-60) L Cholesterol/HDL Ratio 5.1 (3.3-4.4) H Vitamin B12 Level 451 PG/ML (193-986) Folate 49.1 NG/ML (8.6-58.9) Thyroid Stimulating Hormone (TSH) 2.803 uiU/mL (0.358-3.740) Microbiology Date/Time Source Procedure Growth Status 11/08/18 01:40 Blood Blood Culture - Preliminary NO GROWTH AFTER 24 HOURS Resulted 11/08/18 01:30 Blood Blood Culture - Preliminary NO GROWTH AFTER 24 HOURS Resulted 11/08/18 16:50 Sputum Gram Stain - Final Resulted 11/08/18 16:50 Sputum Sputum Culture Pending Resulted 11/08/18 02:22 Nasal Nares Influenza Types A,B Antigen (FRANCHESCA) - Final Complete Intake and Output 11/08/18 11/09/18 18:59 06:59 Intake Total 55 ml Output Total 950 ml 375 ml Balance -895 ml -375 ml IV Total 55 ml Output Urine Total 950 ml 375 ml Objective PHYSICAL EXAMINATION: GENERAL: The patient is a well-developed and well-nourished white male, in moderate respiratory distress. HEENT: Eyes, pupils are equal and responsive to light and accommodation. Extraocular movements are intact. NECK: Supple without lymphadenopathy. CHEST: Nasal canula; Lungs decreased breath sounds at bilateral bases with diffuse wheezes bilaterally. ABDOMEN: Soft, nontender, and nondistended. Positive bowel sounds. No evidence of hepatosplenomegaly. Currently, no rebound or guarding noted. EXTREMITIES: Negative for clubbing, cyanosis, or edema. RECTAL/GENITAL: Refused. NEUROLOGIC: Cranial nerves II through XII are grossly intact without focal deficits. Motor strength is 5/5 bilaterally. Deep tendon reflexes are 2+ plantar. Assessment/Plan Problem List: (1) Pneumonia Assessment & Plan: Continue ceftriaxone and azithromycin per ID (2) Respiratory distress (3) Pulmonary edema (4) COPD (chronic obstructive pulmonary disease) Assessment & Plan: See pulmonary note. (5) Diabetes mellitus (6) HTN (hypertension) (7) Acute on chronic renal failure Assessment & Plan: See nephrology note (8) CHF (congestive heart failure) Assessment & Plan: await echo results. See cardiology note. Status: not improved Lisandro Munguia MD Nov 09, 2018 18:08
--- NOTE | 2018-11-09 19:09 | NUR ---
HAND-OFF: Report given to Fadumo Dudley RN,pt remains stable no c/o chest pain noted..
--- NOTE | 2018-11-09 19:29 | NUR ---
HAND-OFF: change of nurse assignment,report given to Bree Reyes RN .
--- NOTE | 2018-11-09 19:30 | NUR ---
NURSE NOTES: Received bedside report from Mary Mejias RN.Patient stable,A&O x 4,SR on paper finisher,tolerated 4 L/min N/C well,no c/o chest pain or SOB,BS active in all quadrants,IV asymptomatic,intact on L f/arm 20G TKO,bed secured in a safe lower position,call light within a reach.Will continue to monitor and follow POC.
--- NOTE | 2018-11-09 19:41 | Cardiology Progress Note ---
Assessment/Plan Assessment/Plan 1. Shortness of breath. 2. Bronchospasm. 3. History of chronic obstructive pulmonary disease. 4. History of coronary disease, status post two-vessel coronary bypass grafting. 5. History of aortic valve replacement. 6. History of chronic renal insufficiency. 7. History of possibly renal cancer, status post resection. 8. History of gastrointestinal bleed. had cp but ekg unchanged trop unchanged this ama to repeat venous duplex neg echo pending hhn nitrates, bb, statin asa ? v/q ? Subjective Cardiovascular: Reports: chest pain - earleri to day got ntg ,, pain is better thatn yest he says ; Denies: lightheadedness Respiratory: Reports: shortness of breath - better than yest Gastrointestinal/Abdominal: Denies: abdominal pain Genitourinary: Reports: burning Objective Last 24 Hour Vital Signs Date Time Temp Pulse Resp B/P (MAP) Pulse Ox O2 Delivery O2 Flow Rate FiO2 11/09/18 16:14 Nasal Cannula 3.0 Nasal Cannula 3.0 11/09/18 16:00 97.7 64 24 132/49 (76) 95 11/09/18 16:00 64 11/09/18 12:00 67 11/09/18 12:00 Nasal Cannula 3.0 Nasal Cannula 3.0 11/09/18 12:00 98.1 65 22 124/54 (77) 96 11/09/18 10:27 65 135/52 11/09/18 09:21 111/45 11/09/18 09:20 Nasal Cannula 5.0 40 11/09/18 09:20 71 20 Nasal Cannula 5.0 40 11/09/18 09:15 111/41 11/09/18 09:09 119/45 11/09/18 09:03 119/48 11/09/18 08:00 97.3 61 22 119/42 (67) 96 11/09/18 08:00 Nasal Cannula 3.0 Nasal Cannula 3.0 11/09/18 07:37 71 11/09/18 04:00 97.7 64 20 114/47 (69) 95 11/09/18 04:00 Nasal Cannula 3.0 Nasal Cannula 3.0 11/09/18 04:00 64 11/09/18 00:46 64 24 97 Nasal Cannula 4.0 36 11/09/18 00:37 Nasal Cannula 5.0 40 11/09/18 00:37 66 24 96 Nasal Cannula 5.0 40 11/09/18 00:00 97.4 67 24 127/44 (71) 96 11/09/18 00:00 Nasal Cannula 3.0 Nasal Cannula 3.0 11/09/18 00:00 67 11/08/18 21:16 72 137/71 11/08/18 20:14 Nasal Cannula 5.0 40 11/08/18 20:14 95 Nasal Cannula 5.0 40 11/08/18 20:00 98.1 66 20 137/41 (73) 95 11/08/18 20:00 71 11/08/18 20:00 Nasal Cannula 3.0 Nasal Cannula 3.0 General Appearance: no apparent distress, alert Neck: supple Cardiovascular: normal rate Respiratory/Chest: lungs clear Abdomen: normal bowel sounds, non tender, soft Extremities: no swelling Intake and Output 11/08/18 11/09/18 18:59 06:59 Intake Total 55 ml Output Total 950 ml 375 ml Balance -895 ml -375 ml IV Total 55 ml Output Urine Total 950 ml 375 ml Laboratory Tests Test 11/09/18 04:00 White Blood Count 7.3 K/UL (4.8-10.8) Red Blood Count 3.40 M/UL (4.70-6.10) L Hemoglobin 10.4 G/DL (14.2-18.0) L Hematocrit 31.7 % (42.0-52.0) L Mean Corpuscular Volume 93 FL (80-99) Mean Corpuscular Hemoglobin 30.6 PG (27.0-31.0) Mean Corpuscular Hemoglobin Concent 32.8 G/DL (32.0-36.0) Red Cell Distribution Width 13.2 % (11.6-14.8) Platelet Count 123 K/UL (150-450) L Mean Platelet Volume 11.6 FL (6.5-10.1) H Neutrophils (%) (Auto) 76.1 % (45.0-75.0) H Lymphocytes (%) (Auto) 5.5 % (20.0-45.0) L Monocytes (%) (Auto) 12.2 % (1.0-10.0) H Eosinophils (%) (Auto) 4.7 % (0.0-3.0) H Basophils (%) (Auto) 1.5 % (0.0-2.0) Sodium Level 139 MMOL/L (136-145) Potassium Level 5.0 MMOL/L (3.5-5.1) Chloride Level 106 MMOL/L (98-107) Carbon Dioxide Level 25 MMOL/L (21-32) Anion Gap 8 mmol/L (5-15) Blood Urea Nitrogen 44 mg/dL (7-18) H Creatinine 2.4 MG/DL (0.55-1.30) H Estimat Glomerular Filtration Rate mL/min (>60) Glucose Level 109 MG/DL (74-106) H Hemoglobin A1c 5.3 % (4.3-6.0) Uric Acid 10.4 MG/DL (2.6-7.2) H Calcium Level 9.2 MG/DL (8.5-10.1) Phosphorus Level 6.1 MG/DL (2.5-4.9) H Magnesium Level 1.9 MG/DL (1.8-2.4) Iron Level 31 ug/dL (50-175) L Total Iron Binding Capacity 228 ug/dL (250-450) L Percent Iron Saturation 14 % (15-50) L Unsaturated Iron Binding 197 ug/dL (112-346) Ferritin 80 NG/ML (8-388) Total Bilirubin 0.4 MG/DL (0.2-1.0) Gamma Glutamyl Transpeptidase 42 U/L (5-85) Aspartate Amino Transf (AST/SGOT) 23 U/L (15-37) Alanine Aminotransferase (ALT/SGPT) 23 U/L (12-78) Alkaline Phosphatase 66 U/L (46-116) Total Creatine Kinase 165 U/L (26-308) Troponin I 0.152 ng/mL (0.000-0.056) Pro-B-Type Natriuretic Peptide 3741 pg/mL (0-125) H Total Protein 6.1 G/DL (6.4-8.2) L Albumin 3.0 G/DL (3.4-5.0) L Globulin 3.1 g/dL Albumin/Globulin Ratio 1.0 (1.0-2.7) Triglycerides Level 96 MG/DL (30-150) Cholesterol Level 172 MG/DL (< 200) LDL Cholesterol 126 mg/dL (<100) H HDL Cholesterol 34 MG/DL (40-60) L Cholesterol/HDL Ratio 5.1 (3.3-4.4) H Vitamin B12 Level 451 PG/ML (193-986) Folate 49.1 NG/ML (8.6-58.9) Thyroid Stimulating Hormone (TSH) 2.803 uiU/mL (0.358-3.740) Microbiology Date/Time Source Procedure Growth Status 11/08/18 01:40 Blood Blood Culture - Preliminary NO GROWTH AFTER 24 HOURS Resulted 11/08/18 01:30 Blood Blood Culture - Preliminary NO GROWTH AFTER 24 HOURS Resulted 11/08/18 16:50 Sputum Gram Stain - Final Resulted 11/08/18 16:50 Sputum Sputum Culture Pending Resulted 11/08/18 02:22 Nasal Nares Influenza Types A,B Antigen (FRANCHESCA) - Final Complete Edvin Andino MD Nov 09, 2018 19:41
[2018-11-09 20:00] VITALS: BP 134/89
[2018-11-09] MEDS: Amiodarone 200mg tab ORAL SCH (21:16)
[2018-11-09] MEDS: Miralax 17gm pkt ORAL PRN (21:19)
[2018-11-09] MEDS: Promethazine/Codeine 5ml UD ORAL PRN (22:50)
--- NOTE | 2018-11-09 23:18 | NUR ---
HAND-OFF: Report given to CELINA Thorne.Patient stable. Addendum: 11/09/18 at 2322 by Bree Reyes RN disregard this note,wrong patient
[2018-11-10] VITALS: BP 128/70
[2018-11-10 04:00] VITALS: BP 134/58
[2018-11-10 06:14] LABS: BASOPHILS % (AUTO) 1.1 % (0.0-2.0); EOSINOPHILS % (AUTO) 3.9 % (0.0-3.0); HEMATOCRIT 33.1 % (42.0-52.0); LYMPHOCYTES % (AUTO) 5.5 % (20.0-45.0); MEAN CORPUSCULAR VOLUME 93 FL (80-99); MONOCYTES % (AUTO) 10.3 % (1.0-10.0); NEUTROPHILS % (AUTO) 79.3 % (45.0-75.0); PLATELET COUNT 112 K/UL (150-450); RED BLOOD COUNT 3.56 M/UL (4.70-6.10); RED CELL DISTRIBUTION WIDTH 12.9 % (11.6-14.8); WHITE BLOOD COUNT 6.9 K/UL (4.8-10.8)
[2018-11-10 07:05] LABS: ALANINE AMINOTRANSFERASE 24 U/L (12-78); ALBUMIN 3.1 G/DL (3.4-5.0); ALBUMIN/GLOBULIN RATIO 0.9 (1.0-2.7); ALKALINE PHOSPHATASE 69 U/L (46-116); ANION GAP 11 mmol/L (5-15); ASPARTATE AMINO TRANSFERASE 29 U/L (15-37); BILIRUBIN,TOTAL 0.4 MG/DL (0.2-1.0); BLOOD UREA NITROGEN 53 mg/dL (7-18); CALCIUM 9.2 MG/DL (8.5-10.1); CARBON DIOXIDE 24 MMOL/L (21-32); CHLORIDE 105 MMOL/L (98-107); CREATININE 2.5 MG/DL (0.55-1.30); POTASSIUM 4.8 MMOL/L (3.5-5.1); SODIUM 140 MMOL/L (136-145)
--- NOTE | 2018-11-10 07:15 | NUR ---
HAND-OFF: Report given to CELINA Mccollum/CELINA Vu.Patient stable,sleeping.
--- NOTE | 2018-11-10 07:18 | NUR ---
NURSE NOTES: Received report from CELINA Giron. patient seen in bed sleeping, in new position. Continues on oxygen via N/C of 3L/min, no SOB or respiratory distress is noted. No signs of pain noted. Shazia cath is in place and urine is flowing. IV site to left wrist is intact. Bed is in lowest position. Call light is within reach. Will continue to monitor.
[2018-11-10 08:00] VITALS: BP 150/60
[2018-11-10] MEDS: Aspirin Baby 81mg ORAL SCH (08:47)
[2018-11-10] MEDS: Azithromycin 250mg tab ORAL SCH (08:47)
[2018-11-10] MEDS: Imdur 30mg tab ORAL SCH (08:48)
[2018-11-10] MEDS: Heparin 5000 units/ml inj SUBQ SCH ×2 (08:50→20:35)
--- NOTE | 2018-11-10 09:22 | Diagnostic Imaging Report ---
EXAM: XR Chest, 1 View CLINICAL HISTORY: DYSPNEA TECHNIQUE: Frontal view of the chest. COMPARISON: Chest x-ray dated 11/09/18 FINDINGS: Lungs: No significant change in the diffuse prominent reticular interstitial markings. Interval mild improved aeration in bilateral lung bases. Pleural space: Minimal blunting of the left costophrenic angle may suggest a tiny residual left effusion. Heart: Unremarkable. No cardiomegaly. Mediastinum: Unremarkable. Bones/joints: Patient is status post median sternotomy with intact appearance of sternal wires. Vasculature: Atherosclerotic calcifications are noted within the aortic arch. Tubes, lines and devices: EKG leads overlie the thorax. IMPRESSION: 1. No significant change in the diffuse prominent reticular interstitial markings, which may represent pulmonary interstitial edema/CHF. 2. Interval improved aeration in bilateral lung bases. 3. Minimal blunting of the left costophrenic angle may suggest a tiny residual left effusion.
[2018-11-10] MEDS: cefTRIAXone 1 GM in D5W 55 ML IVPB SCH (09:24)
--- NOTE | 2018-11-10 11:21 | Infectious Diseases Prog Note ---
Assessment/Plan Assessment/Plan 88 yo male with PMHx of DM, Asthma and CAD who presented to the ED on 11/07/17 with SOB. CAP +/- CHF or Asthma -CXR 11/10: 1. No significant change in the diffuse prominent reticular interstitial markings, which may represent pulmonary interstitial edema/CHF. 2. Interval improved aeration in bilateral lung bases. 3. Minimal blunting of the left costophrenic angle may suggest a tiny residual left effusion. -sp cx p -influenza sc p CXR - B/L Infiltrates per ED read - Final read pending Aferbile No leukocytosis CAD HTN DM Asthma PLAN - Continue Ceftriaxone #3 and Azithromycin #3/5-7 - 11/08/18 SP Cefepime and vancomycin- - Monitor CBC and Temps - f/u Sputum Cx We will continue to follow the patient during this hospitalization. Subjective Allergies: Coded Allergies: No Known Allergies (Verified , 02/18/10) Subjective afebrile no leukocytosis at 3l NC Objective Vital Signs Last 24 Hour Vital Signs Date Time Temp Pulse Resp B/P (MAP) Pulse Ox O2 Delivery O2 Flow Rate FiO2 11/10/18 08:48 150/60 11/10/18 08:48 69 150/60 11/10/18 08:00 Nasal Cannula 3.0 Nasal Cannula 3.0 11/10/18 08:00 98.2 69 21 150/60 (90) 93 11/10/18 07:56 69 11/10/18 06:35 Nasal Cannula 5.0 40 11/10/18 06:35 66 20 Nasal Cannula 5.0 40 11/10/18 04:00 98.1 71 24 134/58 (83) 93 11/10/18 04:00 Nasal Cannula 3.0 Nasal Cannula 3.0 11/10/18 03:34 70 11/10/18 00:00 Nasal Cannula 3.0 Nasal Cannula 3.0 11/10/18 00:00 97.5 70 24 128/70 (89) 95 11/09/18 23:36 70 11/09/18 23:09 78 20 99 Nasal Cannula 4.0 36 11/09/18 22:54 74 22 99 Nasal Cannula 5.0 40 11/09/18 21:17 65 134/89 11/09/18 20:00 Nasal Cannula 3.0 Nasal Cannula 3.0 11/09/18 20:00 97.9 80 20 134/89 (104) 96 11/09/18 19:56 Nasal Cannula 5.0 40 11/09/18 19:56 65 20 Nasal Cannula 5.0 40 11/09/18 19:28 70 11/09/18 16:14 Nasal Cannula 3.0 Nasal Cannula 3.0 11/09/18 16:00 97.7 64 24 132/49 (76) 95 11/09/18 16:00 64 11/09/18 12:00 67 11/09/18 12:00 Nasal Cannula 3.0 Nasal Cannula 3.0 11/09/18 12:00 98.1 65 22 124/54 (77) 96 Height (Feet): 6 Height (Inches): 0.00 Weight (Pounds): 180 Objective Gen: NAD HEENT: NCAT, MMM, EOMI LUNGS: Course B/L , No W CARDS: RRR, S1, S2, No M/R/G, ABD: Soft, Obese, NT, ND, + BS NEURO: A/O x 3, Strength and sensation grossly intact. Microbiology Date/Time Source Procedure Growth Status 11/08/18 01:40 Blood Blood Culture - Preliminary NO GROWTH AFTER 48 HOURS Resulted 11/08/18 01:30 Blood Blood Culture - Preliminary NO GROWTH AFTER 48 HOURS Resulted 11/08/18 16:50 Sputum Gram Stain - Final Resulted 11/08/18 16:50 Sputum Sputum Culture Pending Resulted 11/08/18 02:22 Nasal Nares Influenza Types A,B Antigen (FRANCHESCA) - Final Complete Laboratory Tests Test 11/10/18 03:45 White Blood Count 6.9 K/UL (4.8-10.8) Red Blood Count 3.56 M/UL (4.70-6.10) L Hemoglobin 11.0 G/DL (14.2-18.0) L Hematocrit 33.1 % (42.0-52.0) L Mean Corpuscular Volume 93 FL (80-99) Mean Corpuscular Hemoglobin 30.9 PG (27.0-31.0) Mean Corpuscular Hemoglobin Concent 33.2 G/DL (32.0-36.0) Red Cell Distribution Width 12.9 % (11.6-14.8) Platelet Count 112 K/UL (150-450) L Mean Platelet Volume 10.4 FL (6.5-10.1) H Neutrophils (%) (Auto) 79.3 % (45.0-75.0) H Lymphocytes (%) (Auto) 5.5 % (20.0-45.0) L Monocytes (%) (Auto) 10.3 % (1.0-10.0) H Eosinophils (%) (Auto) 3.9 % (0.0-3.0) H Basophils (%) (Auto) 1.1 % (0.0-2.0) Sodium Level 140 MMOL/L (136-145) Potassium Level 4.8 MMOL/L (3.5-5.1) Chloride Level 105 MMOL/L (98-107) Carbon Dioxide Level 24 MMOL/L (21-32) Anion Gap 11 mmol/L (5-15) Blood Urea Nitrogen 53 mg/dL (7-18) H Creatinine 2.5 MG/DL (0.55-1.30) H Estimat Glomerular Filtration Rate mL/min (>60) Glucose Level 121 MG/DL (74-106) H Calcium Level 9.2 MG/DL (8.5-10.1) Total Bilirubin 0.4 MG/DL (0.2-1.0) Aspartate Amino Transf (AST/SGOT) 29 U/L (15-37) Alanine Aminotransferase (ALT/SGPT) 24 U/L (12-78) Alkaline Phosphatase 69 U/L (46-116) Pro-B-Type Natriuretic Peptide 3628 pg/mL (0-125) H Total Protein 6.4 G/DL (6.4-8.2) Albumin 3.1 G/DL (3.4-5.0) L Globulin 3.3 g/dL Albumin/Globulin Ratio 0.9 (1.0-2.7) L Random Vancomycin Level < 0.2 ug/mL Current Medications Medications (Trade) Dose Ordered Sig/Nathan Route PRN Reason Start Time Stop Time Status Last Admin Dose Admin Acetaminophen (Tylenol) 650 mg Q4H PRN ORAL fever 11/08/18 07:45 12/08/18 07:44 Albuterol/ Ipratropium (Albuterol/ Ipratropium) 3 ml Q4H PRN HHN Shortness of Breath 11/08/18 07:45 11/13/18 07:44 1/11/19 22:54 Allopurinol (Allopurinol) 300 mg DAILY ORAL 11/10/18 09:00 12/09/18 08:59 11/10/18 08:48 Amiodarone HCl (Cordarone) 100 mg Q24H ORAL 11/08/18 21:00 12/08/18 20:59 11/09/18 21:16 Aspirin (ASA) 162 mg DAILY ORAL 11/08/18 14:30 12/08/18 14:29 11/10/18 08:47 Azithromycin (Zithromax) 250 mg DAILY ORAL 11/09/18 09:00 11/16/18 08:59 11/10/18 08:47 Carvedilol (Coreg) 3.125 mg EVERY 12 HOURS ORAL 11/08/18 09:00 12/08/18 08:59 11/10/18 08:48 Ceftriaxone Sodium 1 gm/ Dextrose 55 ml @ 110 mls/hr Q24H IVPB 11/08/18 10:00 11/15/18 09:59 11/10/18 09:24 Heparin Sodium (Porcine) (Heparin 5000 units/ml) 5,000 units EVERY 12 HOURS SUBQ 11/08/18 09:00 12/08/18 08:59 11/10/18 08:50 Isosorbide Mononitrate (Imdur) 30 mg DAILY ORAL 11/09/18 09:00 12/09/18 08:59 11/10/18 08:48 Nitroglycerin (Ntg) 0.4 mg Q5M PRN SL Prn Chest Pain 11/08/18 07:45 12/08/18 07:44 11/09/18 09:15 Ondansetron HCl (Zofran) 4 mg Q6H PRN IVP Nausea & Vomiting 11/08/18 07:45 12/08/18 07:44 Pantoprazole (Protonix) 40 mg DAILY ORAL 11/09/18 09:00 12/09/18 08:59 11/10/18 08:48 Polyethylene Glycol (Miralax) 17 gm DAILYPRN PRN ORAL Constipation 11/08/18 07:45 12/08/18 07:44 11/09/18 21:19 Pravastatin Sodium (Pravachol) 40 mg BEDTIME ORAL 1/10/19 21:00 12/08/18 20:59 11/09/18 21:17 Promethazine HCl/ Codeine (Phenergan with Codeine) 5 ml Q4H PRN ORAL For Cough 11/08/18 07:45 12/08/18 07:44 11/09/18 22:50 Temazepam (Restoril) 15 mg HSPRN PRN ORAL Insomnia 11/08/18 07:45 11/15/18 07:44 11/09/18 21:17 Cassandra Staley M.D. Nov 10, 2018 11:21
[2018-11-10 12:00] VITALS: BP 130/53
--- NOTE | 2018-11-10 14:06 | Nephrology Progress Note ---
Assessment/Plan Problem List: (1) Acute on chronic renal failure (2) History of unilateral nephrectomy (3) Low iron stores (4) Non-ST elevation (NSTEMI) myocardial infarction (5) CAD (coronary artery disease) Assessment Renal insufficiency due to combination of ONE functioning kidney and underlying DM and HTN Proteinuria indicative of Nephropathy -. Chronic obstructive pulmonary disease. -. Diabetes type 2. -. Hypertension. -. Coronary artery disease. elevated troponin Plan Plan: Optimize cardiac and Pulmonary status- monitor renal parameters- Avoid Nephrotoxics- urine studies Allopurinol Nitrate ASA Subjective ROS Limited/Unobtainable: No Constitutional: Reports: malaise, weakness Objective Objective Last 24 Hour Vital Signs Date Time Temp Pulse Resp B/P (MAP) Pulse Ox O2 Delivery O2 Flow Rate FiO2 11/10/18 12:00 Nasal Cannula 3.0 Nasal Cannula 3.0 11/10/18 12:00 98.2 65 24 130/53 (78) 95 11/10/18 11:23 65 11/10/18 08:48 150/60 11/10/18 08:48 69 150/60 11/10/18 08:00 Nasal Cannula 3.0 Nasal Cannula 3.0 11/10/18 08:00 98.2 69 21 150/60 (90) 93 11/10/18 07:56 69 11/10/18 06:35 Nasal Cannula 5.0 40 11/10/18 06:35 66 20 Nasal Cannula 5.0 40 11/10/18 04:00 98.1 71 24 134/58 (83) 93 11/10/18 04:00 Nasal Cannula 3.0 Nasal Cannula 3.0 11/10/18 03:34 70 11/10/18 00:00 Nasal Cannula 3.0 Nasal Cannula 3.0 11/10/18 00:00 97.5 70 24 128/70 (89) 95 11/09/18 23:36 70 11/09/18 23:09 78 20 99 Nasal Cannula 4.0 36 11/09/18 22:54 74 22 99 Nasal Cannula 5.0 40 11/09/18 21:17 65 134/89 11/09/18 20:00 Nasal Cannula 3.0 Nasal Cannula 3.0 11/09/18 20:00 97.9 80 20 134/89 (104) 96 11/09/18 19:56 Nasal Cannula 5.0 40 11/09/18 19:56 65 20 Nasal Cannula 5.0 40 11/09/18 19:28 70 11/09/18 16:14 Nasal Cannula 3.0 Nasal Cannula 3.0 11/09/18 16:00 97.7 64 24 132/49 (76) 95 11/09/18 16:00 64 Intake and Output 11/09/18 11/10/18 19:00 07:00 Intake Total 535 ml Output Total 1 ml 650 ml Balance 534 ml -650 ml Intake Oral 480 ml IV Total 55 ml Output Urine Total 1 ml 650 ml Current Medications Medications (Trade) Dose Ordered Sig/Nathan Route PRN Reason Start Time Stop Time Status Last Admin Dose Admin Acetaminophen (Tylenol) 650 mg Q4H PRN ORAL fever 11/08/18 07:45 12/08/18 07:44 Albuterol/ Ipratropium (Albuterol/ Ipratropium) 3 ml Q4H PRN HHN Shortness of Breath 11/08/18 07:45 11/13/18 07:44 11/09/18 22:54 Allopurinol (Allopurinol) 300 mg DAILY ORAL 11/10/18 09:00 12/09/18 08:59 11/10/18 08:48 Amiodarone HCl (Cordarone) 100 mg Q24H ORAL 11/08/18 21:00 12/08/18 20:59 11/09/18 21:16 Aspirin (ASA) 162 mg DAILY ORAL 11/08/18 14:30 12/08/18 14:29 11/10/18 08:47 Azithromycin (Zithromax) 250 mg DAILY ORAL 11/09/18 09:00 11/16/18 08:59 11/10/18 08:47 Carvedilol (Coreg) 3.125 mg EVERY 12 HOURS ORAL 11/08/18 09:00 12/08/18 08:59 11/10/18 08:48 Ceftriaxone Sodium 1 gm/ Dextrose 55 ml @ 110 mls/hr Q24H IVPB 11/08/18 10:00 11/15/18 09:59 11/10/18 09:24 Heparin Sodium (Porcine) (Heparin 5000 units/ml) 5,000 units EVERY 12 HOURS SUBQ 11/08/18 09:00 12/08/18 08:59 11/10/18 08:50 Isosorbide Mononitrate (Imdur) 30 mg DAILY ORAL 11/09/18 09:00 12/09/18 08:59 11/10/18 08:48 Nitroglycerin (Ntg) 0.4 mg Q5M PRN SL Prn Chest Pain 11/08/18 07:45 12/08/18 07:44 11/09/18 09:15 Ondansetron HCl (Zofran) 4 mg Q6H PRN IVP Nausea & Vomiting 11/08/18 07:45 12/08/18 07:44 Pantoprazole (Protonix) 40 mg DAILY ORAL 11/09/18 09:00 12/09/18 08:59 11/10/18 08:48 Polyethylene Glycol (Miralax) 17 gm DAILYPRN PRN ORAL Constipation 11/08/18 07:45 12/08/18 07:44 11/09/18 21:19 Pravastatin Sodium (Pravachol) 40 mg BEDTIME ORAL 11/08/18 21:00 12/08/18 20:59 11/09/18 21:17 Promethazine HCl/ Codeine (Phenergan with Codeine) 5 ml Q4H PRN ORAL For Cough 11/08/18 07:45 12/08/18 07:44 11/09/18 22:50 Temazepam (Restoril) 15 mg HSPRN PRN ORAL Insomnia 11/08/18 07:45 11/15/18 07:44 11/09/18 21:17 Laboratory Tests 11/10/18 03:45: White Blood Count 6.9, Red Blood Count 3.56L, Hemoglobin 11.0L, Hematocrit 33.1L , Mean Corpuscular Volume 93, Mean Corpuscular Hemoglobin 30.9, Mean Corpuscular Hemoglobin Concent 33.2, Red Cell Distribution Width 12.9, Platelet Count 112L, Mean Platelet Volume 10.4H, Neutrophils (%) (Auto) 79.3H, Lymphocytes (%) (Auto) 5.5L, Monocytes (%) (Auto) 10.3H, Eosinophils (%) (Auto) 3.9H, Basophils (%) (Auto) 1.1, Sodium Level 140, Potassium Level 4.8, Chloride Level 105, Carbon Dioxide Level 24, Anion Gap 11, Blood Urea Nitrogen 53H, Creatinine 2.5H, Estimat Glomerular Filtration Rate , Glucose Level 121H, Calcium Level 9.2, Total Bilirubin 0.4, Aspartate Amino Transf (AST/SGOT) 29, Alanine Aminotransferase (ALT/SGPT) 24, Alkaline Phosphatase 69, Pro-B-Type Natriuretic Peptide 3628H, Total Protein 6.4, Albumin 3.1L, Globulin 3.3, Albumin/Globulin Ratio 0.9L, Random Vancomycin Level < 0.2 Height (Feet): 6 Height (Inches): 0.00 Weight (Pounds): 180 Cardiovascular: normal rate Respiratory/Chest: decreased breath sounds Abdomen: distended Jeff Blanco MD Nov 10, 2018 14:06
--- NOTE | 2018-11-10 14:28 | Internal Med Progress Note ---
Subjective Date of Service: Nov 10, 2018 Physician Name Lisandro Munguia Attending Physician Tobin Medel MD Current Medications Medications (Trade) Dose Ordered Sig/Nathan Route PRN Reason Start Time Stop Time Status Last Admin Dose Admin Acetaminophen (Tylenol) 650 mg Q4H PRN ORAL fever 11/08/18 07:45 12/08/18 07:44 Albuterol/ Ipratropium (Albuterol/ Ipratropium) 3 ml Q4H PRN HHN Shortness of Breath 11/08/18 07:45 11/13/18 07:44 11/09/18 22:54 Allopurinol (Allopurinol) 300 mg DAILY ORAL 11/10/18 09:00 12/09/18 08:59 11/10/18 08:48 Amiodarone HCl (Cordarone) 100 mg Q24H ORAL 11/08/18 21:00 12/08/18 20:59 11/09/18 21:16 Aspirin (ASA) 162 mg DAILY ORAL 11/08/18 14:30 12/08/18 14:29 11/10/18 08:47 Azithromycin (Zithromax) 250 mg DAILY ORAL 11/09/18 09:00 11/16/18 08:59 11/10/18 08:47 Carvedilol (Coreg) 3.125 mg EVERY 12 HOURS ORAL 11/08/18 09:00 12/08/18 08:59 11/10/18 08:48 Ceftriaxone Sodium 1 gm/ Dextrose 55 ml @ 110 mls/hr Q24H IVPB 11/08/18 10:00 11/15/18 09:59 11/10/18 09:24 Heparin Sodium (Porcine) (Heparin 5000 units/ml) 5,000 units EVERY 12 HOURS SUBQ 11/08/18 09:00 12/08/18 08:59 11/10/18 08:50 Isosorbide Mononitrate (Imdur) 30 mg DAILY ORAL 11/09/18 09:00 12/09/18 08:59 11/10/18 08:48 Nitroglycerin (Ntg) 0.4 mg Q5M PRN SL Prn Chest Pain 11/08/18 07:45 12/08/18 07:44 11/09/18 09:15 Ondansetron HCl (Zofran) 4 mg Q6H PRN IVP Nausea & Vomiting 11/08/18 07:45 12/08/18 07:44 Pantoprazole (Protonix) 40 mg DAILY ORAL 11/09/18 09:00 12/09/18 08:59 11/10/18 08:48 Polyethylene Glycol (Miralax) 17 gm DAILYPRN PRN ORAL Constipation 11/08/18 07:45 12/08/18 07:44 11/09/18 21:19 Pravastatin Sodium (Pravachol) 40 mg BEDTIME ORAL 11/08/18 21:00 12/08/18 20:59 11/09/18 21:17 Promethazine HCl/ Codeine (Phenergan with Codeine) 5 ml Q4H PRN ORAL For Cough 11/08/18 07:45 12/08/18 07:44 11/09/18 22:50 Temazepam (Restoril) 15 mg HSPRN PRN ORAL Insomnia 11/08/18 07:45 11/15/18 07:44 11/09/18 21:17 Allergies: Coded Allergies: No Known Allergies (Verified , 02/18/10) ROS Limited/Unobtainable: Yes Constitutional: Reports: no symptoms HEENT: Reports: no symptoms Cardiovascular: Reports: no symptoms Respiratory: Reports: shortness of breath Gastrointestinal/Abdominal: Reports: no symptoms Genitourinary: Reports: no symptoms Neurologic/Psychiatric: Reports: no symptoms Subjective 88 YO M admitted with shortness of breath, now pneumonia. Cover for Int Med-Dr Medel. MARZENA. Tolerating nasal canula. C/O shortness of breath Objective Last Vital Signs Date Time Temp Pulse Resp B/P (MAP) Pulse Ox O2 Delivery O2 Flow Rate FiO2 11/10/18 12:00 Nasal Cannula 3.0 Nasal Cannula 3.0 11/10/18 12:00 98.2 65 24 130/53 (78) 95 11/10/18 06:35 40 Laboratory Tests Test 11/10/18 03:45 White Blood Count 6.9 K/UL (4.8-10.8) Red Blood Count 3.56 M/UL (4.70-6.10) L Hemoglobin 11.0 G/DL (14.2-18.0) L Hematocrit 33.1 % (42.0-52.0) L Mean Corpuscular Volume 93 FL (80-99) Mean Corpuscular Hemoglobin 30.9 PG (27.0-31.0) Mean Corpuscular Hemoglobin Concent 33.2 G/DL (32.0-36.0) Red Cell Distribution Width 12.9 % (11.6-14.8) Platelet Count 112 K/UL (150-450) L Mean Platelet Volume 10.4 FL (6.5-10.1) H Neutrophils (%) (Auto) 79.3 % (45.0-75.0) H Lymphocytes (%) (Auto) 5.5 % (20.0-45.0) L Monocytes (%) (Auto) 10.3 % (1.0-10.0) H Eosinophils (%) (Auto) 3.9 % (0.0-3.0) H Basophils (%) (Auto) 1.1 % (0.0-2.0) Sodium Level 140 MMOL/L (136-145) Potassium Level 4.8 MMOL/L (3.5-5.1) Chloride Level 105 MMOL/L (98-107) Carbon Dioxide Level 24 MMOL/L (21-32) Anion Gap 11 mmol/L (5-15) Blood Urea Nitrogen 53 mg/dL (7-18) H Creatinine 2.5 MG/DL (0.55-1.30) H Estimat Glomerular Filtration Rate mL/min (>60) Glucose Level 121 MG/DL (74-106) H Calcium Level 9.2 MG/DL (8.5-10.1) Total Bilirubin 0.4 MG/DL (0.2-1.0) Aspartate Amino Transf (AST/SGOT) 29 U/L (15-37) Alanine Aminotransferase (ALT/SGPT) 24 U/L (12-78) Alkaline Phosphatase 69 U/L (46-116) Pro-B-Type Natriuretic Peptide 3628 pg/mL (0-125) H Total Protein 6.4 G/DL (6.4-8.2) Albumin 3.1 G/DL (3.4-5.0) L Globulin 3.3 g/dL Albumin/Globulin Ratio 0.9 (1.0-2.7) L Random Vancomycin Level < 0.2 ug/mL Microbiology Date/Time Source Procedure Growth Status 11/08/18 01:40 Blood Blood Culture - Preliminary NO GROWTH AFTER 48 HOURS Resulted 11/08/18 01:30 Blood Blood Culture - Preliminary NO GROWTH AFTER 48 HOURS Resulted 11/08/18 16:50 Sputum Gram Stain - Final Resulted 11/08/18 16:50 Sputum Sputum Culture Pending Resulted 11/08/18 02:22 Nasal Nares Influenza Types A,B Antigen (FRANCHESCA) - Final Complete Intake and Output 11/09/18 11/10/18 19:00 07:00 Intake Total 535 ml Output Total 1 ml 650 ml Balance 534 ml -650 ml Intake Oral 480 ml IV Total 55 ml Output Urine Total 1 ml 650 ml Objective PHYSICAL EXAMINATION: GENERAL: The patient is a well-developed and well-nourished white male, in moderate respiratory distress. HEENT: Eyes, pupils are equal and responsive to light and accommodation. Extraocular movements are intact. NECK: Supple without lymphadenopathy. CHEST: Nasal canula; Lungs decreased breath sounds at bilateral bases with diffuse wheezes bilaterally. ABDOMEN: Soft, nontender, and nondistended. Positive bowel sounds. No evidence of hepatosplenomegaly. Currently, no rebound or guarding noted. EXTREMITIES: Negative for clubbing, cyanosis, or edema. RECTAL/GENITAL: Refused. NEUROLOGIC: Cranial nerves II through XII are grossly intact without focal deficits. Motor strength is 5/5 bilaterally. Deep tendon reflexes are 2+ plantar. Assessment/Plan Problem List: (1) Pneumonia Assessment & Plan: Continue ceftriaxone and azithromycin per ID (2) Respiratory distress Assessment & Plan: STAT ABG. May require BIPAP (3) Pulmonary edema (4) COPD (chronic obstructive pulmonary disease) Assessment & Plan: See pulmonary note. (5) Diabetes mellitus (6) HTN (hypertension) (7) Acute on chronic renal failure Assessment & Plan: See nephrology note (8) CHF (congestive heart failure) Assessment & Plan: await echo results. See cardiology note. Status: not improved Lisandro Munguia MD Nov 10, 2018 14:28
--- NOTE | 2018-11-10 14:30 | NUR ---
NURSE NOTES: Patient complained short of breath,with front end application developer nurses jacquelyn Godinez speaks [place],,Dr. Munguia visited,with orders,ABG done and chest Xray,continue O2 3 L NC,respiratory treatment given by respiratory therapist per request,ordered scheduled time round the clock Daughter visited and care transition coordinator at bedside,continue to monitor
[2018-11-10] MEDS ORDERED: Albuterol/Ipratropium 3ml neb ONE (15:34)
[2018-11-10] MEDS: Albuterol/Ipratropium 3ml neb HHN SCH (15:40)
[2018-11-10 16:00] VITALS: BP 128/47
--- NOTE | 2018-11-10 16:20 | Cardiology Progress Note ---
Assessment/Plan Assessment/Plan 1. Shortness of breath. 2. Bronchospasm. 3. History of chronic obstructive pulmonary disease. 4. History of coronary disease, status post two-vessel coronary bypass grafting. 5. History of aortic valve replacement. 6. History of chronic renal insufficiency. 7. History of possibly renal cancer, status post resection. 8. History of gastrointestinal bleed. trop unchanged venous duplex neg echo pending hhn nitrates, bb, statin asa ? v/q ? Subjective Subjective staff translating hhn help no dizziness has phlegm Objective Last 24 Hour Vital Signs Date Time Temp Pulse Resp B/P (MAP) Pulse Ox O2 Delivery O2 Flow Rate FiO2 11/10/18 15:41 62 20 99 Nasal Cannula 3.0 32 11/10/18 15:41 63 20 96 Nasal Cannula 5.0 40 11/10/18 15:40 62 20 Nasal Cannula 5.0 40 11/10/18 15:40 Nasal Cannula 3.0 32 11/10/18 12:00 Nasal Cannula 3.0 Nasal Cannula 3.0 11/10/18 12:00 98.2 65 24 130/53 (78) 95 11/10/18 11:23 65 11/10/18 08:48 150/60 11/10/18 08:48 69 150/60 11/10/18 08:00 Nasal Cannula 3.0 Nasal Cannula 3.0 11/10/18 08:00 98.2 69 21 150/60 (90) 93 11/10/18 07:56 69 11/10/18 06:35 Nasal Cannula 5.0 40 11/10/18 06:35 66 20 Nasal Cannula 5.0 40 11/10/18 04:00 98.1 71 24 134/58 (83) 93 11/10/18 04:00 Nasal Cannula 3.0 Nasal Cannula 3.0 11/10/18 03:34 70 11/10/18 00:00 Nasal Cannula 3.0 Nasal Cannula 3.0 11/10/18 00:00 97.5 70 24 128/70 (89) 95 11/09/18 23:36 70 11/09/18 23:09 78 20 99 Nasal Cannula 4.0 36 11/09/18 22:54 74 22 99 Nasal Cannula 5.0 40 11/09/18 21:17 65 134/89 11/09/18 20:00 Nasal Cannula 3.0 Nasal Cannula 3.0 11/09/18 20:00 97.9 80 20 134/89 (104) 96 11/09/18 19:56 Nasal Cannula 5.0 40 11/09/18 19:56 65 20 Nasal Cannula 5.0 40 11/09/18 19:28 70 General Appearance: no apparent distress, alert Cardiovascular: normal rate Respiratory/Chest: expiratory wheezing Abdomen: normal bowel sounds, non tender, soft Extremities: no swelling Intake and Output 11/09/18 11/10/18 19:00 07:00 Intake Total 535 ml Output Total 1 ml 650 ml Balance 534 ml -650 ml Intake Oral 480 ml IV Total 55 ml Output Urine Total 1 ml 650 ml Laboratory Tests Test 11/10/18 03:45 11/10/18 14:44 White Blood Count 6.9 K/UL (4.8-10.8) Red Blood Count 3.56 M/UL (4.70-6.10) L Hemoglobin 11.0 G/DL (14.2-18.0) L Hematocrit 33.1 % (42.0-52.0) L Mean Corpuscular Volume 93 FL (80-99) Mean Corpuscular Hemoglobin 30.9 PG (27.0-31.0) Mean Corpuscular Hemoglobin Concent 33.2 G/DL (32.0-36.0) Red Cell Distribution Width 12.9 % (11.6-14.8) Platelet Count 112 K/UL (150-450) L Mean Platelet Volume 10.4 FL (6.5-10.1) H Neutrophils (%) (Auto) 79.3 % (45.0-75.0) H Lymphocytes (%) (Auto) 5.5 % (20.0-45.0) L Monocytes (%) (Auto) 10.3 % (1.0-10.0) H Eosinophils (%) (Auto) 3.9 % (0.0-3.0) H Basophils (%) (Auto) 1.1 % (0.0-2.0) Sodium Level 140 MMOL/L (136-145) Potassium Level 4.8 MMOL/L (3.5-5.1) Chloride Level 105 MMOL/L (98-107) Carbon Dioxide Level 24 MMOL/L (21-32) Anion Gap 11 mmol/L (5-15) Blood Urea Nitrogen 53 mg/dL (7-18) H Creatinine 2.5 MG/DL (0.55-1.30) H Estimat Glomerular Filtration Rate mL/min (>60) Glucose Level 121 MG/DL (74-106) H Calcium Level 9.2 MG/DL (8.5-10.1) Total Bilirubin 0.4 MG/DL (0.2-1.0) Aspartate Amino Transf (AST/SGOT) 29 U/L (15-37) Alanine Aminotransferase (ALT/SGPT) 24 U/L (12-78) Alkaline Phosphatase 69 U/L (46-116) Pro-B-Type Natriuretic Peptide 3628 pg/mL (0-125) H Total Protein 6.4 G/DL (6.4-8.2) Albumin 3.1 G/DL (3.4-5.0) L Globulin 3.3 g/dL Albumin/Globulin Ratio 0.9 (1.0-2.7) L Random Vancomycin Level < 0.2 ug/mL Arterial Blood pH 7.353 (7.350-7.450) Arterial Blood Partial Pressure CO2 47.0 mmHg (35.0-45.0) H Arterial Blood Partial Pressure O2 82.2 mmHg (75.0-100.0) Arterial Blood HCO3 25.5 mmol/L (22.0-26.0) Arterial Blood Oxygen Saturation 94.7 % (95-100) L Arterial Blood Base Excess -0.4 (-2-2) Tino Test Positive Microbiology Date/Time Source Procedure Growth Status 11/08/18 01:40 Blood Blood Culture - Preliminary NO GROWTH AFTER 48 HOURS Resulted 11/08/18 01:30 Blood Blood Culture - Preliminary NO GROWTH AFTER 48 HOURS Resulted 11/08/18 16:50 Sputum Gram Stain - Final Resulted 11/08/18 16:50 Sputum Sputum Culture Pending Resulted 11/08/18 02:22 Nasal Nares Influenza Types A,B Antigen (FRANCHESCA) - Final Complete Edvin Andino MD Nov 10, 2018 16:20
--- NOTE | 2018-11-10 18:40 | NUR ---
NURSE NOTES: Patient asleep breathing easy not in distress,morning caregiver at bedside
--- NOTE | 2018-11-10 19:00 | NUR ---
NURSE NOTES: Received report from CELINA Noland. Patient seen in bed awake and alert, patient is Slovak speaking only. in new position. Continues on oxygen via N/C of 3L/min, no SOB or respiratory distress is at this time. No signs of pain noted, Flacc score is 0/10. Shazia cath is in place and urine is flowing. IV site to left wrist 20G is intact. Bed is in lowest position. Call light is within reach. Will continue to monitor.
--- NOTE | 2018-11-10 19:14 | NUR ---
HAND-OFF: Report given to CELINA Aguilar . Patient stable at this time.
[2018-11-10 20:00] VITALS: BP 135/50
--- NOTE | 2018-11-10 20:00 | NUR ---
NURSE NOTES: Patient repositioned. Urinal canister remains at bedside within patients reach. Call light also within reach and bed in lowest position, with alarm set to on.
[2018-11-10] MEDS: Amiodarone 200mg tab ORAL SCH (20:34)
--- NOTE | 2018-11-10 21:35 | Pulmonology Progress Note ---
Assessment/Plan Problems: (1) Acute respiratory failure (2) Non-ST elevation (NSTEMI) myocardial infarction (3) COPD (chronic obstructive pulmonary disease) (4) Pulmonary edema (5) Hx of CABG (6) CAD (coronary artery disease) (7) Diabetes mellitus (8) HTN (hypertension) Assessment/Plan slightlyl better Echo reviewed, EF is 55%, mod , Mild MS respiratory treatment check sputum, still pending prn diuretics ( he got lasix 40 in ER) f/u electrolytes and renal US titrate fio2 to saturation of 92% sliding scale diabetic diet dvt prophylaxis. Subjective ROS Limited/Unobtainable: No Interval Events: still has rhonchi Allergies: Coded Allergies: No Known Allergies (Verified , 02/18/10) Objective Last 24 Hour Vital Signs Date Time Temp Pulse Resp B/P (MAP) Pulse Ox O2 Delivery O2 Flow Rate FiO2 11/10/18 20:34 63 128/47 11/10/18 19:30 Nasal Cannula 3.0 32 11/10/18 19:30 63 20 Nasal Cannula 3.0 32 11/10/18 16:00 97.2 63 26 128/47 (74) 92 11/10/18 16:00 Nasal Cannula 3.0 Nasal Cannula 3.0 11/10/18 15:41 62 20 99 Nasal Cannula 3.0 32 11/10/18 15:41 63 20 96 Nasal Cannula 5.0 40 11/10/18 15:40 62 20 Nasal Cannula 5.0 40 11/10/18 15:40 Nasal Cannula 3.0 32 11/10/18 15:33 67 11/10/18 12:00 Nasal Cannula 3.0 Nasal Cannula 3.0 11/10/18 12:00 98.2 65 24 130/53 (78) 95 11/10/18 11:23 65 11/10/18 08:48 150/60 11/10/18 08:48 69 150/60 11/10/18 08:00 Nasal Cannula 3.0 Nasal Cannula 3.0 11/10/18 08:00 98.2 69 21 150/60 (90) 93 11/10/18 07:56 69 11/10/18 06:35 Nasal Cannula 5.0 40 11/10/18 06:35 66 20 Nasal Cannula 5.0 40 11/10/18 04:00 98.1 71 24 134/58 (83) 93 1/12/19 04:00 Nasal Cannula 3.0 Nasal Cannula 3.0 11/10/18 03:34 70 11/10/18 00:00 Nasal Cannula 3.0 Nasal Cannula 3.0 11/10/18 00:00 97.5 70 24 128/70 (89) 95 11/09/18 23:36 70 11/09/18 23:09 78 20 99 Nasal Cannula 4.0 36 11/09/18 22:54 74 22 99 Nasal Cannula 5.0 40 Intake and Output 11/09/18 11/10/18 18:59 06:59 Intake Total 535 ml Output Total 1 ml 650 ml Balance 534 ml -650 ml Intake Oral 480 ml IV Total 55 ml Output Urine Total 1 ml 650 ml General Appearance: cachetic HEENT: normocephalic, atraumatic Respiratory/Chest: chest wall non-tender, accessory muscle use, crackles/rales , rhonchi Cardiovascular: normal peripheral pulses, normal rate Abdomen: soft, non tender, no mass Extremities: no cyanosis Skin: no rash, no ulcers Microbiology Date/Time Source Procedure Growth Status 11/08/18 01:40 Blood Blood Culture - Preliminary NO GROWTH AFTER 48 HOURS Resulted 11/08/18 01:30 Blood Blood Culture - Preliminary NO GROWTH AFTER 48 HOURS Resulted 11/08/18 16:50 Sputum Gram Stain - Final Resulted 11/08/18 16:50 Sputum Sputum Culture Pending Resulted 11/08/18 02:22 Nasal Nares Influenza Types A,B Antigen (FRANCHESCA) - Final Complete Laboratory Tests 11/10/18 03:45: White Blood Count 6.9, Red Blood Count 3.56L, Hemoglobin 11.0L, Hematocrit 33.1L , Mean Corpuscular Volume 93, Mean Corpuscular Hemoglobin 30.9, Mean Corpuscular Hemoglobin Concent 33.2, Red Cell Distribution Width 12.9, Platelet Count 112L, Mean Platelet Volume 10.4H, Neutrophils (%) (Auto) 79.3H, Lymphocytes (%) (Auto) 5.5L, Monocytes (%) (Auto) 10.3H, Eosinophils (%) (Auto) 3.9H, Basophils (%) (Auto) 1.1, Sodium Level 140, Potassium Level 4.8, Chloride Level 105, Carbon Dioxide Level 24, Anion Gap 11, Blood Urea Nitrogen 53H, Creatinine 2.5H, Estimat Glomerular Filtration Rate , Glucose Level 121H, Calcium Level 9.2, Total Bilirubin 0.4, Aspartate Amino Transf (AST/SGOT) 29, Alanine Aminotransferase (ALT/SGPT) 24, Alkaline Phosphatase 69, Pro-B-Type Natriuretic Peptide 3628H, Total Protein 6.4, Albumin 3.1L, Globulin 3.3, Albumin/Globulin Ratio 0.9L, Random Vancomycin Level < 0.2 11/10/18 14:44: Arterial Blood pH 7.353, Arterial Blood Partial Pressure CO2 47.0H, Arterial Blood Partial Pressure O2 82.2, Arterial Blood HCO3 25.5, Arterial Blood Oxygen Saturation 94.7L, Arterial Blood Base Excess -0.4, Tino Test Positive Current Medications Medications (Trade) Dose Ordered Sig/Nathan Route PRN Reason Start Time Stop Time Status Last Admin Dose Admin Acetaminophen (Tylenol) 650 mg Q4H PRN ORAL fever 11/08/18 07:45 12/08/18 07:44 Albuterol/ Ipratropium (Albuterol/ Ipratropium) 3 ml Q6HRT HHN 11/10/18 19:00 11/15/18 18:59 11/10/18 15:40 Allopurinol (Allopurinol) 300 mg DAILY ORAL 11/10/18 09:00 12/09/18 08:59 11/10/18 08:48 Amiodarone HCl (Cordarone) 100 mg Q24H ORAL 11/08/18 21:00 12/08/18 20:59 11/10/18 20:34 Aspirin (ASA) 162 mg DAILY ORAL 11/08/18 14:30 12/08/18 14:29 11/10/18 08:47 Azithromycin (Zithromax) 250 mg DAILY ORAL 11/09/18 09:00 11/16/18 08:59 11/10/18 08:47 Carvedilol (Coreg) 3.125 mg EVERY 12 HOURS ORAL 11/08/18 09:00 12/08/18 08:59 11/10/18 20:34 Ceftriaxone Sodium 1 gm/ Dextrose 55 ml @ 110 mls/hr Q24H IVPB 11/08/18 10:00 11/15/18 09:59 11/10/18 09:24 Heparin Sodium (Porcine) (Heparin 5000 units/ml) 5,000 units EVERY 12 HOURS SUBQ 11/08/18 09:00 12/08/18 08:59 11/10/18 20:35 Isosorbide Mononitrate (Imdur) 30 mg DAILY ORAL 11/09/18 09:00 12/09/18 08:59 11/10/18 08:48 Nitroglycerin (Ntg) 0.4 mg Q5M PRN SL Prn Chest Pain 11/08/18 07:45 12/08/18 07:44 11/09/18 09:15 Ondansetron HCl (Zofran) 4 mg Q6H PRN IVP Nausea & Vomiting 11/08/18 07:45 12/08/18 07:44 Pantoprazole (Protonix) 40 mg DAILY ORAL 11/09/18 09:00 12/09/18 08:59 11/10/18 08:48 Polyethylene Glycol (Miralax) 17 gm DAILYPRN PRN ORAL Constipation 11/08/18 07:45 12/08/18 07:44 11/09/18 21:19 Pravastatin Sodium (Pravachol) 40 mg BEDTIME ORAL 11/08/18 21:00 12/08/18 20:59 11/10/18 20:33 Promethazine HCl/ Codeine (Phenergan with Codeine) 5 ml Q4H PRN ORAL For Cough 11/08/18 07:45 12/08/18 07:44 11/09/18 22:50 Temazepam (Restoril) 15 mg HSPRN PRN ORAL Insomnia 11/08/18 07:45 11/15/18 07:44 11/10/18 20:33 Srini Mckay MD Nov 10, 2018 21:35
--- NOTE | 2018-11-10 22:00 | NUR ---
NURSE NOTES: Scheduled medications provided and repositioned, Patients remains on NC at 3L without any form of respiratory distress. Vitals also remains stable.
[2018-11-11] VITALS: BP 134/50
--- NOTE | 2018-11-11 | NUR ---
NURSE NOTES: Patient is sleeping, HR is 63. Vitals remains stable.
--- NOTE | 2018-11-11 03:00 | NUR ---
NURSE NOTES: PATIENT HAVING EPISODE OF CHEST PAIN AND SHORTNESS OF BREATH. BP: 147/46, HR 63 WITH SR 1ST DEGREE AVB, SPO2 96% WHILE ON NC AT 4L, 97.1F (ORAL TEMPERATURE) INTERVENTIONS: PATIENT GIVEN X 1 BREATHING TREATMENT NITROGLYCERIN 0.4MG SUBLINGUAL TAB X 1 GIVEN 12 LEAD EKG DONE, W/1ST DEGREE AVB SHOWN (SEE 12 LEAD EKG RHYTHM FORM IN CHART) 15 MINUTES AFTER INTERVENTIONS WERE INITIATED PATIENT BECAME LESS SHORT OF BREATH AND SHOWED NO EXPRESSION OF CHEST PAIN FROM BEFORE. PATIENT WENT TO SLEEP AND NASAL CANULA AT 5L WITH AEROSOL TREATMENT. WILL KEEP A CLOSE EYE ON PATIENT AND MONITOR PROGRESS.
[2018-11-11] MEDS: Albuterol/Ipratropium 3ml neb HHN SCH ×5 (03:02→19:45)
[2018-11-11] MEDS: Nitroglycerin Subl 0.4mg tab SL PRN (03:50)
[2018-11-11 04:00] VITALS: BP 147/46
--- NOTE | 2018-11-11 04:00 | NUR ---
NURSE NOTES: Patient remains on NC at 5L. Patient in high fowlers position. Patients RR at 26 per minute. No chest pain at the moment. Will continue to monitor.
[2018-11-11 05:40] LABS: BASOPHILS % (AUTO) 1.3 % (0.0-2.0); EOSINOPHILS % (AUTO) 6.4 % (0.0-3.0); HEMATOCRIT 32.9 % (42.0-52.0); HEMOGLOBIN 10.9 G/DL (14.2-18.0); LYMPHOCYTES % (AUTO) 9.5 % (20.0-45.0); MEAN CORPUSCULAR VOLUME 93 FL (80-99); MONOCYTES % (AUTO) 17.1 % (1.0-10.0); NEUTROPHILS % (AUTO) 65.7 % (45.0-75.0); PLATELET COUNT 110 K/UL (150-450); RED BLOOD COUNT 3.54 M/UL (4.70-6.10); RED CELL DISTRIBUTION WIDTH 13.3 % (11.6-14.8); WHITE BLOOD COUNT 6.1 K/UL (4.8-10.8)
--- NOTE | 2018-11-11 06:00 | NUR ---
NURSE NOTES: Patient calm and stable now, no acute distress. Spo2 is 97% while on 5L NC. Patient sleeping.
[2018-11-11 06:05] LABS: ANION GAP 8 mmol/L (5-15); BLOOD UREA NITROGEN 49 mg/dL (7-18); CALCIUM 9.5 MG/DL (8.5-10.1); CARBON DIOXIDE 25 MMOL/L (21-32); CHLORIDE 106 MMOL/L (98-107); CREATININE 2.4 MG/DL (0.55-1.30); POTASSIUM 5.1 MMOL/L (3.5-5.1); SODIUM 139 MMOL/L (136-145)
--- NOTE | 2018-11-11 07:25 | NUR ---
NURSE NOTES: Received report CELINA Fernandez patient awake on ,not distress,on 5 L nasal cannula O2 saturation 97%,place on 3 L NC,serve breakfast,sitting up
[2018-11-11 08:20] VITALS: BP 135/48
[2018-11-11] MEDS: Imdur 30mg tab ORAL SCH (08:20)
[2018-11-11] MEDS: Heparin 5000 units/ml inj SUBQ SCH ×2 (08:20→21:00)
[2018-11-11] MEDS: Azithromycin 250mg tab ORAL SCH (08:21)
[2018-11-11] MEDS: Aspirin Baby 81mg ORAL SCH (08:22)
[2018-11-11] MEDS: cefTRIAXone 1 GM in D5W 55 ML IVPB SCH (09:53)
[2018-11-11 12:00] VITALS: BP 125/42
--- NOTE | 2018-11-11 14:34 | Cardiology Progress Note ---
Assessment/Plan Assessment/Plan 1. Shortness of breath. 2. Bronchospasm. 3. History of chronic obstructive pulmonary disease. 4. History of coronary disease, status post two-vessel coronary bypass grafting. 5. History of aortic valve replacement. 6. History of chronic renal insufficiency. 7. History of possibly renal cancer, status post resection. 8. History of gastrointestinal bleed 9. phtn trop unchanged min abn venous duplex neg echo pending i reviwed images wall motion seem ok ,, mod , Mild MS, pasp in the 50's hhn nitrates, bb, statin asa ? v/q ? mom cxr infiltrates better Subjective Cardiovascular: Denies: chest pain Respiratory: Reports: shortness of breath Gastrointestinal/Abdominal: Reports: abdominal pain, constipated Genitourinary: Reports: burning Subjective staff translating hhn help no dizziness has phlegm Objective Last 24 Hour Vital Signs Date Time Temp Pulse Resp B/P (MAP) Pulse Ox O2 Delivery O2 Flow Rate FiO2 11/11/18 12:49 Nasal Cannula 5.0 40 11/11/18 12:49 Nasal Cannula 5.0 40 11/11/18 12:00 61 11/11/18 08:24 Nasal Cannula 5.0 Nasal Cannula 3.0 11/11/18 08:21 63 135/48 11/11/18 08:20 97.5 63 20 135/48 (77) 94 11/11/18 08:20 135/40 11/11/18 08:00 66 11/11/18 06:46 63 16 Nasal Cannula 5.0 40 11/11/18 06:46 63 20 98 Nasal Cannula 5.0 40 11/11/18 06:46 Nasal Cannula 5.0 40 11/11/18 06:40 62 26 95 Nasal Cannula 5.0 40 11/11/18 04:00 61 11/11/18 04:00 Nasal Cannula 5.0 Nasal Cannula 5.0 11/11/18 04:00 96.6 62 22 147/46 (79) 97 11/11/18 03:50 141/48 11/11/18 03:13 65 20 99 Nasal Cannula 5.0 40 11/11/18 03:03 62 20 97 Nasal Cannula 5.0 40 11/11/18 00:00 Nasal Cannula 3.0 Nasal Cannula 3.0 11/11/18 00:00 98.2 63 24 134/50 (78) 94 1/12/19 20:34 63 128/47 11/10/18 20:00 98.1 65 30 135/50 (78) 95 11/10/18 20:00 Nasal Cannula 3.0 Nasal Cannula 3.0 11/10/18 20:00 64 11/10/18 19:30 Nasal Cannula 3.0 32 11/10/18 19:30 63 20 Nasal Cannula 3.0 32 11/10/18 16:00 97.2 63 26 128/47 (74) 92 11/10/18 16:00 Nasal Cannula 3.0 Nasal Cannula 3.0 11/10/18 15:41 62 20 99 Nasal Cannula 3.0 32 11/10/18 15:41 63 20 96 Nasal Cannula 5.0 40 11/10/18 15:40 62 20 Nasal Cannula 5.0 40 11/10/18 15:40 Nasal Cannula 3.0 32 11/10/18 15:33 67 General Appearance: no apparent distress, alert Neck: supple Cardiovascular: normal rate Respiratory/Chest: lungs clear, normal breath sounds Abdomen: normal bowel sounds, non tender, soft Extremities: no swelling Intake and Output 11/10/18 11/11/18 19:00 07:00 Intake Total 530 ml Output Total 1000 ml Balance -470 ml Intake Oral 530 ml Output Urine Total 1000 ml # Voids 3 Laboratory Tests Test 11/10/18 14:44 11/11/18 03:45 Arterial Blood pH 7.353 (7.350-7.450) Arterial Blood Partial Pressure CO2 47.0 mmHg (35.0-45.0) H Arterial Blood Partial Pressure O2 82.2 mmHg (75.0-100.0) Arterial Blood HCO3 25.5 mmol/L (22.0-26.0) Arterial Blood Oxygen Saturation 94.7 % (95-100) L Arterial Blood Base Excess -0.4 (-2-2) Tino Test Positive White Blood Count 6.1 K/UL (4.8-10.8) Red Blood Count 3.54 M/UL (4.70-6.10) L Hemoglobin 10.9 G/DL (14.2-18.0) L Hematocrit 32.9 % (42.0-52.0) L Mean Corpuscular Volume 93 FL (80-99) Mean Corpuscular Hemoglobin 30.9 PG (27.0-31.0) Mean Corpuscular Hemoglobin Concent 33.2 G/DL (32.0-36.0) Red Cell Distribution Width 13.3 % (11.6-14.8) Platelet Count 110 K/UL (150-450) L Mean Platelet Volume 10.2 FL (6.5-10.1) H Neutrophils (%) (Auto) 65.7 % (45.0-75.0) Lymphocytes (%) (Auto) 9.5 % (20.0-45.0) L Monocytes (%) (Auto) 17.1 % (1.0-10.0) H Eosinophils (%) (Auto) 6.4 % (0.0-3.0) H Basophils (%) (Auto) 1.3 % (0.0-2.0) Sodium Level 139 MMOL/L (136-145) Potassium Level 5.1 MMOL/L (3.5-5.1) Chloride Level 106 MMOL/L (98-107) Carbon Dioxide Level 25 MMOL/L (21-32) Anion Gap 8 mmol/L (5-15) Blood Urea Nitrogen 49 mg/dL (7-18) H Creatinine 2.4 MG/DL (0.55-1.30) H Estimat Glomerular Filtration Rate mL/min (>60) Glucose Level 98 MG/DL (74-106) Calcium Level 9.5 MG/DL (8.5-10.1) Troponin I 0.070 ng/mL (0.000-0.056) Microbiology Date/Time Source Procedure Growth Status 11/08/18 16:50 Sputum Gram Stain - Final Complete 11/08/18 16:50 Sputum Sputum Culture - Final NORMAL UPPER RESPIRATORY ANUEL PRESENT Complete 11/09/18 20:00 External Cath Urine Culture - Preliminary NO GROWTH Resulted Edvin Andino MD Nov 11, 2018 14:34
[2018-11-11] MEDS ORDERED: Milk of Magnesia 30ml Ud ORAL SCH (14:36)
--- NOTE | 2018-11-11 15:01 | Cardiology Report ---
APPROVED REPORT EKG Measurement Heart [id number] Normal sinus rhythm T wave abnormality, consider inferior ischemia Abnormal ECG
--- NOTE | 2018-11-11 15:32 | Cardiology Report ---
APPROVED REPORT EKG Measurement Heart [id number] Normal sinus rhythm Nonspecific ST and T wave abnormality Abnormal ECG
--- NOTE | 2018-11-11 15:39 | Pulmonology Progress Note ---
Assessment/Plan Problems: (1) Acute respiratory failure (2) Non-ST elevation (NSTEMI) myocardial infarction (3) COPD (chronic obstructive pulmonary disease) (4) Pulmonary edema (5) Hx of CABG (6) CAD (coronary artery disease) (7) Diabetes mellitus (8) HTN (hypertension) Assessment/Plan doing better Echo reviewed, EF is 55% respiratory treatment check sputum, still pending prn diuretics ( he got lasix 40 in ER) f/u electrolytes and renal US titrate fio2 to saturation of 92% sliding scale diabetic diet dvt prophylaxis. Subjective ROS Limited/Unobtainable: No Interval Events: less short of breath Allergies: Coded Allergies: No Known Allergies (Verified , 02/18/10) Objective Last 24 Hour Vital Signs Date Time Temp Pulse Resp B/P (MAP) Pulse Ox O2 Delivery O2 Flow Rate FiO2 11/11/18 15:19 73 22 99 Nasal Cannula 5.0 40 11/11/18 15:13 72 28 95 Nasal Cannula 5.0 40 11/11/18 12:00 61 11/11/18 08:24 Nasal Cannula 5.0 Nasal Cannula 3.0 11/11/18 08:21 63 135/48 11/11/18 08:20 97.5 63 20 135/48 (77) 94 11/11/18 08:20 135/40 11/11/18 08:00 66 11/11/18 06:46 63 16 Nasal Cannula 5.0 40 11/11/18 06:46 63 20 98 Nasal Cannula 5.0 40 11/11/18 06:46 Nasal Cannula 5.0 40 11/11/18 06:40 62 26 95 Nasal Cannula 5.0 40 11/11/18 04:00 61 11/11/18 04:00 Nasal Cannula 5.0 Nasal Cannula 5.0 11/11/18 04:00 96.6 62 22 147/46 (79) 97 11/11/18 03:50 141/48 11/11/18 03:13 65 20 99 Nasal Cannula 5.0 40 11/11/18 03:03 62 20 97 Nasal Cannula 5.0 40 11/11/18 00:00 Nasal Cannula 3.0 Nasal Cannula 3.0 11/11/18 00:00 98.2 63 24 134/50 (78) 94 11/10/18 20:34 63 128/47 11/10/18 20:00 98.1 65 30 135/50 (78) 95 11/10/18 20:00 Nasal Cannula 3.0 Nasal Cannula 3.0 11/10/18 20:00 64 11/10/18 19:30 Nasal Cannula 3.0 32 11/10/18 19:30 63 20 Nasal Cannula 3.0 32 11/10/18 16:00 97.2 63 26 128/47 (74) 92 11/10/18 16:00 Nasal Cannula 3.0 Nasal Cannula 3.0 11/10/18 15:41 62 20 99 Nasal Cannula 3.0 32 11/10/18 15:41 63 20 96 Nasal Cannula 5.0 40 11/10/18 15:40 62 20 Nasal Cannula 5.0 40 11/10/18 15:40 Nasal Cannula 3.0 32 Intake and Output 11/10/18 11/11/18 19:00 07:00 Intake Total 530 ml Output Total 1000 ml Balance -470 ml Intake Oral 530 ml Output Urine Total 1000 ml # Voids 3 General Appearance: WD/WN HEENT: normocephalic, anicteric Respiratory/Chest: chest wall non-tender, crackles/rales, rhonchi Cardiovascular: normal peripheral pulses, normal rate, no gallop/murmur Abdomen: normal bowel sounds, non distended Genitourinary: normal external genitalia Extremities: no clubbing Skin: no lesions, no ulcers Microbiology Date/Time Source Procedure Growth Status 11/08/18 16:50 Sputum Gram Stain - Final Complete 11/08/18 16:50 Sputum Sputum Culture - Final NORMAL UPPER RESPIRATORY ANUEL PRESENT Complete 11/09/18 20:00 External Cath Urine Culture - Preliminary NO GROWTH Resulted Laboratory Tests 11/11/18 03:45: White Blood Count 6.1, Red Blood Count 3.54L, Hemoglobin 10.9L, Hematocrit 32.9L , Mean Corpuscular Volume 93, Mean Corpuscular Hemoglobin 30.9, Mean Corpuscular Hemoglobin Concent 33.2, Red Cell Distribution Width 13.3, Platelet Count 110L, Mean Platelet Volume 10.2H, Neutrophils (%) (Auto) 65.7, Lymphocytes (%) (Auto) 9.5L, Monocytes (%) (Auto) 17.1H, Eosinophils (%) (Auto) 6.4H, Basophils (%) (Auto) 1.3, Sodium Level 139, Potassium Level 5.1, Chloride Level 106, Carbon Dioxide Level 25, Anion Gap 8, Blood Urea Nitrogen 49H, Creatinine 2.4H, Estimat Glomerular Filtration Rate , Glucose Level 98, Calcium Level 9.5, Troponin I 0.070H Current Medications Medications (Trade) Dose Ordered Sig/Nathan Route PRN Reason Start Time Stop Time Status Last Admin Dose Admin Acetaminophen (Tylenol) 650 mg Q4H PRN ORAL fever 11/08/18 07:45 12/08/18 07:44 Albuterol/ Ipratropium (Albuterol/ Ipratropium) 3 ml Q6HRT HHN 11/10/18 19:00 11/15/18 18:59 11/11/18 15:18 Allopurinol (Allopurinol) 300 mg DAILY ORAL 11/10/18 09:00 12/09/18 08:59 11/11/18 08:21 Amiodarone HCl (Cordarone) 100 mg Q24H ORAL 11/08/18 21:00 12/08/18 20:59 11/10/18 20:34 Aspirin (ASA) 162 mg DAILY ORAL 11/08/18 14:30 12/08/18 14:29 11/11/18 08:22 Azithromycin (Zithromax) 250 mg DAILY ORAL 11/09/18 09:00 11/16/18 08:59 11/11/18 08:21 Carvedilol (Coreg) 3.125 mg EVERY 12 HOURS ORAL 11/08/18 09:00 12/08/18 08:59 11/11/18 08:21 Ceftriaxone Sodium 1 gm/ Dextrose 55 ml @ 110 mls/hr Q24H IVPB 11/08/18 10:00 11/15/18 09:59 11/11/18 09:53 Furosemide (Lasix) 20 mg ONCE IV 11/11/18 14:45 11/11/18 15:45 Heparin Sodium (Porcine) (Heparin 5000 units/ml) 5,000 units EVERY 12 HOURS SUBQ 11/08/18 09:00 12/08/18 08:59 11/11/18 08:20 Isosorbide Mononitrate (Imdur) 30 mg DAILY ORAL 11/09/18 09:00 12/09/18 08:59 11/11/18 08:20 Nitroglycerin (Ntg) 0.4 mg Q5M PRN SL Prn Chest Pain 11/08/18 07:45 12/08/18 07:44 11/11/18 03:50 Ondansetron HCl (Zofran) 4 mg Q6H PRN IVP Nausea & Vomiting 11/08/18 07:45 12/08/18 07:44 Pantoprazole (Protonix) 40 mg DAILY ORAL 11/09/18 09:00 12/09/18 08:59 11/11/18 08:21 Polyethylene Glycol (Miralax) 17 gm DAILYPRN PRN ORAL Constipation 11/08/18 07:45 12/08/18 07:44 11/09/18 21:19 Pravastatin Sodium (Pravachol) 40 mg BEDTIME ORAL 11/08/18 21:00 12/08/18 20:59 11/10/18 20:33 Promethazine HCl/ Codeine (Phenergan with Codeine) 5 ml Q4H PRN ORAL For Cough 11/08/18 07:45 12/08/18 07:44 11/09/18 22:50 Temazepam (Restoril) 15 mg HSPRN PRN ORAL Insomnia 11/08/18 07:45 11/15/18 07:44 11/10/18 20:33 Srini Mckay MD Nov 11, 2018 15:39
--- NOTE | 2018-11-11 15:46 | Nephrology Progress Note ---
Assessment/Plan Problem List: (1) Acute on chronic renal failure (2) History of unilateral nephrectomy (3) Low iron stores (4) Non-ST elevation (NSTEMI) myocardial infarction (5) CAD (coronary artery disease) Assessment Renal insufficiency due to combination of ONE functioning kidney and underlying DM and HTN Proteinuria indicative of Nephropathy -. Chronic obstructive pulmonary disease. -. Diabetes type 2. -. Hypertension. -. Coronary artery disease. elevated troponin Plan Plan: Optimize cardiac and Pulmonary status- monitor renal parameters- Avoid Nephrotoxics- urine studies Allopurinol Nitrate ASA Subjective ROS Limited/Unobtainable: No Constitutional: Reports: malaise Objective Objective Last 24 Hour Vital Signs Date Time Temp Pulse Resp B/P (MAP) Pulse Ox O2 Delivery O2 Flow Rate FiO2 11/11/18 15:19 73 22 99 Nasal Cannula 5.0 40 11/11/18 15:13 72 28 95 Nasal Cannula 5.0 40 11/11/18 12:00 61 11/11/18 08:24 Nasal Cannula 5.0 Nasal Cannula 3.0 11/11/18 08:21 63 135/48 11/11/18 08:20 97.5 63 20 135/48 (77) 94 11/11/18 08:20 135/40 11/11/18 08:00 66 11/11/18 06:46 63 16 Nasal Cannula 5.0 40 11/11/18 06:46 63 20 98 Nasal Cannula 5.0 40 11/11/18 06:46 Nasal Cannula 5.0 40 11/11/18 06:40 62 26 95 Nasal Cannula 5.0 40 11/11/18 04:00 61 11/11/18 04:00 Nasal Cannula 5.0 Nasal Cannula 5.0 11/11/18 04:00 96.6 62 22 147/46 (79) 97 11/11/18 03:50 141/48 11/11/18 03:13 65 20 99 Nasal Cannula 5.0 40 11/11/18 03:03 62 20 97 Nasal Cannula 5.0 40 11/11/18 00:00 Nasal Cannula 3.0 Nasal Cannula 3.0 11/11/18 00:00 98.2 63 24 134/50 (78) 94 11/10/18 20:34 63 128/47 11/10/18 20:00 98.1 65 30 135/50 (78) 95 11/10/18 20:00 Nasal Cannula 3.0 Nasal Cannula 3.0 11/10/18 20:00 64 11/10/18 19:30 Nasal Cannula 3.0 32 11/10/18 19:30 63 20 Nasal Cannula 3.0 32 11/10/18 16:00 97.2 63 26 128/47 (74) 92 11/10/18 16:00 Nasal Cannula 3.0 Nasal Cannula 3.0 Intake and Output 11/10/18 11/11/18 19:00 07:00 Intake Total 530 ml Output Total 1000 ml Balance -470 ml Intake Oral 530 ml Output Urine Total 1000 ml # Voids 3 Laboratory Tests 11/11/18 03:45: White Blood Count 6.1, Red Blood Count 3.54L, Hemoglobin 10.9L, Hematocrit 32.9L , Mean Corpuscular Volume 93, Mean Corpuscular Hemoglobin 30.9, Mean Corpuscular Hemoglobin Concent 33.2, Red Cell Distribution Width 13.3, Platelet Count 110L, Mean Platelet Volume 10.2H, Neutrophils (%) (Auto) 65.7, Lymphocytes (%) (Auto) 9.5L, Monocytes (%) (Auto) 17.1H, Eosinophils (%) (Auto) 6.4H, Basophils (%) (Auto) 1.3, Sodium Level 139, Potassium Level 5.1, Chloride Level 106, Carbon Dioxide Level 25, Anion Gap 8, Blood Urea Nitrogen 49H, Creatinine 2.4H, Estimat Glomerular Filtration Rate , Glucose Level 98, Calcium Level 9.5, Troponin I 0.070H Height (Feet): 6 Height (Inches): 0.00 Weight (Pounds): 180 General Appearance: no apparent distress Respiratory/Chest: decreased breath sounds Abdomen: soft Objective no change Jeff Blanco MD Nov 11, 2018 15:46
[2018-11-11 16:00] VITALS: BP 126/48
--- NOTE | 2018-11-11 16:15 | Internal Med Progress Note ---
Subjective Date of Service: Nov 11, 2018 Physician Name Lisandro Munguia Attending Physician Tobin Medel MD Current Medications Medications (Trade) Dose Ordered Sig/Nathan Route PRN Reason Start Time Stop Time Status Last Admin Dose Admin Acetaminophen (Tylenol) 650 mg Q4H PRN ORAL fever 11/08/18 07:45 12/08/18 07:44 Albuterol/ Ipratropium (Albuterol/ Ipratropium) 3 ml Q6HRT HHN 11/10/18 19:00 11/15/18 18:59 11/11/18 15:18 Allopurinol (Allopurinol) 300 mg DAILY ORAL 11/10/18 09:00 12/09/18 08:59 11/11/18 08:21 Amiodarone HCl (Cordarone) 100 mg Q24H ORAL 11/08/18 21:00 12/08/18 20:59 11/10/18 20:34 Aspirin (ASA) 162 mg DAILY ORAL 11/08/18 14:30 12/08/18 14:29 11/11/18 08:22 Azithromycin (Zithromax) 250 mg DAILY ORAL 11/09/18 09:00 11/16/18 08:59 11/11/18 08:21 Carvedilol (Coreg) 3.125 mg EVERY 12 HOURS ORAL 11/08/18 09:00 12/08/18 08:59 11/11/18 08:21 Ceftriaxone Sodium 1 gm/ Dextrose 55 ml @ 110 mls/hr Q24H IVPB 11/08/18 10:00 11/15/18 09:59 11/11/18 09:53 Heparin Sodium (Porcine) (Heparin 5000 units/ml) 5,000 units EVERY 12 HOURS SUBQ 11/08/18 09:00 12/08/18 08:59 11/11/18 08:20 Isosorbide Mononitrate (Imdur) 30 mg DAILY ORAL 11/09/18 09:00 12/09/18 08:59 11/11/18 08:20 Nitroglycerin (Ntg) 0.4 mg Q5M PRN SL Prn Chest Pain 11/08/18 07:45 12/08/18 07:44 11/11/18 03:50 Ondansetron HCl (Zofran) 4 mg Q6H PRN IVP Nausea & Vomiting 11/08/18 07:45 12/08/18 07:44 Pantoprazole (Protonix) 40 mg DAILY ORAL 11/09/18 09:00 12/09/18 08:59 11/11/18 08:21 Polyethylene Glycol (Miralax) 17 gm DAILYPRN PRN ORAL Constipation 11/08/18 07:45 12/08/18 07:44 11/09/18 21:19 Pravastatin Sodium (Pravachol) 40 mg BEDTIME ORAL 11/08/18 21:00 12/08/18 20:59 11/10/18 20:33 Promethazine HCl/ Codeine (Phenergan with Codeine) 5 ml Q4H PRN ORAL For Cough 11/08/18 07:45 12/08/18 07:44 11/09/18 22:50 Temazepam (Restoril) 15 mg HSPRN PRN ORAL Insomnia 11/08/18 07:45 11/15/18 07:44 11/10/18 20:33 Allergies: Coded Allergies: No Known Allergies (Verified , 02/18/10) ROS Limited/Unobtainable: No Constitutional: Reports: no symptoms HEENT: Reports: no symptoms Cardiovascular: Reports: no symptoms Respiratory: Reports: shortness of breath Gastrointestinal/Abdominal: Reports: no symptoms Genitourinary: Reports: no symptoms Neurologic/Psychiatric: Reports: no symptoms Subjective 88 YO M admitted with shortness of breath, now pneumonia. Cover for Int Med-Dr Medel. MARZENA. Tolerating nasal canula. C/O shortness of breath Objective Last Vital Signs Date Time Temp Pulse Resp B/P (MAP) Pulse Ox O2 Delivery O2 Flow Rate FiO2 11/11/18 15:19 73 22 99 Nasal Cannula 5.0 40 11/11/18 08:21 135/48 11/11/18 08:20 97.5 Laboratory Tests Test 11/11/18 03:45 White Blood Count 6.1 K/UL (4.8-10.8) Red Blood Count 3.54 M/UL (4.70-6.10) L Hemoglobin 10.9 G/DL (14.2-18.0) L Hematocrit 32.9 % (42.0-52.0) L Mean Corpuscular Volume 93 FL (80-99) Mean Corpuscular Hemoglobin 30.9 PG (27.0-31.0) Mean Corpuscular Hemoglobin Concent 33.2 G/DL (32.0-36.0) Red Cell Distribution Width 13.3 % (11.6-14.8) Platelet Count 110 K/UL (150-450) L Mean Platelet Volume 10.2 FL (6.5-10.1) H Neutrophils (%) (Auto) 65.7 % (45.0-75.0) Lymphocytes (%) (Auto) 9.5 % (20.0-45.0) L Monocytes (%) (Auto) 17.1 % (1.0-10.0) H Eosinophils (%) (Auto) 6.4 % (0.0-3.0) H Basophils (%) (Auto) 1.3 % (0.0-2.0) Sodium Level 139 MMOL/L (136-145) Potassium Level 5.1 MMOL/L (3.5-5.1) Chloride Level 106 MMOL/L (98-107) Carbon Dioxide Level 25 MMOL/L (21-32) Anion Gap 8 mmol/L (5-15) Blood Urea Nitrogen 49 mg/dL (7-18) H Creatinine 2.4 MG/DL (0.55-1.30) H Estimat Glomerular Filtration Rate mL/min (>60) Glucose Level 98 MG/DL (74-106) Calcium Level 9.5 MG/DL (8.5-10.1) Troponin I 0.070 ng/mL (0.000-0.056) Microbiology Date/Time Source Procedure Growth Status 11/08/18 16:50 Sputum Gram Stain - Final Complete 11/08/18 16:50 Sputum Sputum Culture - Final NORMAL UPPER RESPIRATORY ANUEL PRESENT Complete 11/09/18 20:00 External Cath Urine Culture - Preliminary NO GROWTH Resulted Intake and Output 11/10/18 11/11/18 19:00 07:00 Intake Total 530 ml Output Total 1000 ml Balance -470 ml Intake Oral 530 ml Output Urine Total 1000 ml # Voids 3 Objective PHYSICAL EXAMINATION: GENERAL: The patient is a well-developed and well-nourished white male, in moderate respiratory distress. HEENT: Eyes, pupils are equal and responsive to light and accommodation. Extraocular movements are intact. NECK: Supple without lymphadenopathy. CHEST: Nasal canula; Lungs decreased breath sounds at bilateral bases with diffuse wheezes bilaterally. ABDOMEN: Soft, nontender, and nondistended. Positive bowel sounds. No evidence of hepatosplenomegaly. Currently, no rebound or guarding noted. EXTREMITIES: Negative for clubbing, cyanosis, or edema. RECTAL/GENITAL: Refused. NEUROLOGIC: Cranial nerves II through XII are grossly intact without focal deficits. Motor strength is 5/5 bilaterally. Deep tendon reflexes are 2+ plantar. Assessment/Plan Problem List: (1) Pneumonia Assessment & Plan: Continue ceftriaxone and azithromycin per ID (2) Respiratory distress Assessment & Plan: STAT ABG. May require BIPAP (3) Pulmonary edema (4) COPD (chronic obstructive pulmonary disease) Assessment & Plan: See pulmonary note. (5) Diabetes mellitus (6) HTN (hypertension) (7) Acute on chronic renal failure Assessment & Plan: See nephrology note (8) CHF (congestive heart failure) Assessment & Plan: await echo results. See cardiology note. Status: not improved Lisandro Munguia MD Nov 11, 2018 16:15
--- NOTE | 2018-11-11 19:12 | NUR ---
HAND-OFF: Report given to RN Maggie patient resting not in distress on oxygen.
--- NOTE | 2018-11-11 19:15 | NUR ---
NURSE NOTES: Report received from CELINA Mccollum. Observed pt lying on the bed, watching TV. Alert and oriented, [place]ian speaker, denies pain at this time. SR with cardiac care nurse. NC with 3L, no signs of SOB noted. Condom catheter, intact and draining well. IV site on L FA 20G, heplock, intact and asymptomatic. Bed in the lowest position. Side rails up x3. Call light within reach. Will continue to monitor.
[2018-11-11 20:00] VITALS: BP 133/50
[2018-11-11] MEDS: Amiodarone 200mg tab ORAL SCH (21:25)
[2018-11-12] VITALS: BP 128/50
--- NOTE | 2018-11-12 01:02 | NUR ---
NURSE NOTES: pt c/o pain on his right knee. Elevated both legs, ice pack given and applied to right knee. Will continue to monitor.
[2018-11-12] MEDS: Albuterol/Ipratropium 3ml neb HHN SCH ×4 (01:23→18:21)
[2018-11-12 04:00] VITALS: BP 142/50
[2018-11-12 07:13] LABS: BASOPHILS % (AUTO) 1.5 % (0.0-2.0); EOSINOPHILS % (AUTO) 6.4 % (0.0-3.0); HEMATOCRIT 33.7 % (42.0-52.0); HEMOGLOBIN 11.3 G/DL (14.2-18.0); LYMPHOCYTES % (AUTO) 9.1 % (20.0-45.0); MEAN CORPUSCULAR VOLUME 91 FL (80-99); PLATELET COUNT 124 K/UL (150-450); RED BLOOD COUNT 3.69 M/UL (4.70-6.10); RED CELL DISTRIBUTION WIDTH 12.9 % (11.6-14.8); WHITE BLOOD COUNT 5.6 K/UL (4.8-10.8)
--- NOTE | 2018-11-12 07:25 | NUR ---
NURSE NOTES: Received report CELINA Serrano patient asleep on, O2 3 L NC,no distresshead elevated,condom catheter
--- NOTE | 2018-11-12 07:30 | NUR ---
HAND-OFF: Report given to CELINA Mccollum. No acute distress noted at this time.
[2018-11-12 07:31] LABS: ANION GAP 9 mmol/L (5-15); BLOOD UREA NITROGEN 52 mg/dL (7-18); CALCIUM 9.2 MG/DL (8.5-10.1); CARBON DIOXIDE 26 MMOL/L (21-32); CHLORIDE 104 MMOL/L (98-107); CREATININE 2.5 MG/DL (0.55-1.30); POTASSIUM 4.5 MMOL/L (3.5-5.1); SODIUM 138 MMOL/L (136-145)
[2018-11-12] MEDS: Azithromycin 250mg tab ORAL SCH (08:40)
[2018-11-12 08:45] VITALS: BP 140/44
[2018-11-12] MEDS: Aspirin Baby 81mg ORAL SCH (08:45)
[2018-11-12] MEDS: Imdur 30mg tab ORAL SCH (08:45)
[2018-11-12] MEDS: Heparin 5000 units/ml inj SUBQ SCH ×2 (08:50→20:58)
[2018-11-12] MEDS: cefTRIAXone 1 GM in D5W 55 ML IVPB SCH (11:20)
[2018-11-12] MEDS: Miralax 17gm pkt ORAL PRN (11:20)
--- NOTE | 2018-11-12 11:47 | Pulmonology Progress Note ---
Assessment/Plan Problems: (1) Acute respiratory failure (2) Non-ST elevation (NSTEMI) myocardial infarction (3) COPD (chronic obstructive pulmonary disease) (4) Pulmonary edema (5) Hx of CABG (6) CAD (coronary artery disease) (7) Diabetes mellitus (8) HTN (hypertension) Assessment/Plan doing better Echo reviewed, EF is 55% respiratory treatment check sputum, still pending prn diuretics ( he got lasix 40 in ER) f/u electrolytes and renal US titrate fio2 to saturation of 92% sliding scale diabetic diet dvt prophylaxis. Subjective ROS Limited/Unobtainable: No Constitutional: Reports: no symptoms HEENT: Repors: no symptoms Allergies: Coded Allergies: No Known Allergies (Verified , 02/18/10) Objective Last 24 Hour Vital Signs Date Time Temp Pulse Resp B/P (MAP) Pulse Ox O2 Delivery O2 Flow Rate FiO2 11/12/18 08:45 140/44 11/12/18 08:45 62 140/44 11/12/18 08:45 96.8 62 22 140/44 (76) 95 11/12/18 08:00 59 11/12/18 08:00 Nasal Cannula 3.0 Nasal Cannula 3.0 11/12/18 07:13 60 14 97 Nasal Cannula 3.0 32 11/12/18 07:05 Nasal Cannula 3.0 32 11/12/18 07:05 60 14 95 Nasal Cannula 3.0 32 11/12/18 07:05 60 14 Nasal Cannula 3.0 32 11/12/18 04:00 97.5 62 22 142/50 (80) 96 11/12/18 04:00 Nasal Cannula 5.0 Nasal Cannula 3.0 11/12/18 04:00 61 11/12/18 01:35 79 18 98 Nasal Cannula 3.0 32 11/12/18 01:23 63 18 95 Nasal Cannula 3.0 32 11/12/18 00:00 Nasal Cannula 5.0 Nasal Cannula 3.0 11/12/18 00:00 97.0 68 20 128/50 (76) 94 11/12/18 00:00 61 11/11/18 21:00 61 133/50 11/11/18 20:00 Nasal Cannula 5.0 Nasal Cannula 3.0 11/11/18 20:00 64 11/11/18 20:00 97.2 60 20 133/50 (77) 94 11/11/18 19:57 64 18 98 Nasal Cannula 3.0 32 11/11/18 19:45 64 18 94 Nasal Cannula 3.0 32 11/11/18 19:45 Nasal Cannula 3.0 32 11/11/18 19:45 64 18 Nasal Cannula 3.0 32 11/11/18 16:00 97.5 62 20 126/48 (74) 94 11/11/18 16:00 Nasal Cannula 3.0 Nasal Cannula 3.0 11/11/18 16:00 63 11/11/18 15:28 80 24 99 Nasal Cannula 5.0 40 11/11/18 15:20 81 22 95 Nasal Cannula 5.0 40 11/11/18 15:19 73 22 99 Nasal Cannula 5.0 40 11/11/18 15:13 72 28 95 Nasal Cannula 5.0 40 11/11/18 12:00 96.8 60 20 125/42 (69) 95 11/11/18 12:00 61 11/11/18 12:00 Nasal Cannula 3.0 Nasal Cannula 3.0 Intake and Output 11/11/18 11/12/18 19:00 07:00 Intake Total 420 ml Output Total 500 ml 1000 ml Balance -80 ml -1000 ml Intake Oral 420 ml Output Urine Total 500 ml 1000 ml # Bowel Movements 1 General Appearance: WD/WN HEENT: normocephalic, atraumatic Respiratory/Chest: chest wall non-tender, crackles/rales Cardiovascular: normal peripheral pulses, normal rate Abdomen: normal bowel sounds, soft, non tender Genitourinary: normal external genitalia Extremities: no clubbing Neurologic/Psychiatric: no motor/sensory deficits Lymphatic: no neck adenopathy Microbiology Date/Time Source Procedure Growth Status 11/09/18 20:00 External Cath Urine Culture - Preliminary NO GROWTH AFTER 24 HOURS Resulted Laboratory Tests 11/12/18 05:00: White Blood Count 5.6, Red Blood Count 3.69L, Hemoglobin 11.3L, Hematocrit 33.7L , Mean Corpuscular Volume 91, Mean Corpuscular Hemoglobin 30.6, Mean Corpuscular Hemoglobin Concent 33.5, Red Cell Distribution Width 12.9, Platelet Count 124L, Mean Platelet Volume 10.4H, Neutrophils (%) (Auto) 67.0, Lymphocytes (%) (Auto) 9.1L, Monocytes (%) (Auto) 16.0H, Eosinophils (%) (Auto) 6.4H, Basophils (%) (Auto) 1.5, Sodium Level 138, Potassium Level 4.5, Chloride Level 104, Carbon Dioxide Level 26, Anion Gap 9, Blood Urea Nitrogen 52H, Creatinine 2.5H, Estimat Glomerular Filtration Rate , Glucose Level 98, Calcium Level 9.2, Troponin I 0.058H Current Medications Medications (Trade) Dose Ordered Sig/Nathan Route PRN Reason Start Time Stop Time Status Last Admin Dose Admin Acetaminophen (Tylenol) 650 mg Q4H PRN ORAL fever 11/08/18 07:45 12/08/18 07:44 Albuterol/ Ipratropium (Albuterol/ Ipratropium) 3 ml Q6HRT HHN 11/10/18 19:00 11/15/18 18:59 11/12/18 07:11 Allopurinol (Allopurinol) 300 mg DAILY ORAL 11/10/18 09:00 12/09/18 08:59 11/12/18 08:45 Amiodarone HCl (Cordarone) 100 mg Q24H ORAL 11/08/18 21:00 12/08/18 20:59 11/11/18 21:25 Aspirin (ASA) 162 mg DAILY ORAL 11/08/18 14:30 12/08/18 14:29 11/12/18 08:45 Azithromycin (Zithromax) 250 mg DAILY ORAL 11/09/18 09:00 11/16/18 08:59 11/12/18 08:40 Carvedilol (Coreg) 3.125 mg EVERY 12 HOURS ORAL 11/08/18 09:00 12/08/18 08:59 11/12/18 08:45 Ceftriaxone Sodium 1 gm/ Dextrose 55 ml @ 110 mls/hr Q24H IVPB 11/08/18 10:00 11/15/18 09:59 11/11/18 09:53 Heparin Sodium (Porcine) (Heparin 5000 units/ml) 5,000 units EVERY 12 HOURS SUBQ 11/08/18 09:00 12/08/18 08:59 11/12/18 08:50 Isosorbide Mononitrate (Imdur) 30 mg DAILY ORAL 11/09/18 09:00 12/09/18 08:59 11/12/18 08:45 Nitroglycerin (Ntg) 0.4 mg Q5M PRN SL Prn Chest Pain 11/08/18 07:45 12/08/18 07:44 11/11/18 03:50 Ondansetron HCl (Zofran) 4 mg Q6H PRN IVP Nausea & Vomiting 11/08/18 07:45 12/08/18 07:44 Pantoprazole (Protonix) 40 mg DAILY ORAL 11/09/18 09:00 12/09/18 08:59 11/12/18 08:46 Polyethylene Glycol (Miralax) 17 gm DAILYPRN PRN ORAL Constipation 11/08/18 07:45 12/08/18 07:44 11/09/18 21:19 Pravastatin Sodium (Pravachol) 40 mg BEDTIME ORAL 11/08/18 21:00 12/08/18 20:59 11/11/18 21:25 Promethazine HCl/ Codeine (Phenergan with Codeine) 5 ml Q4H PRN ORAL For Cough 11/08/18 07:45 12/08/18 07:44 11/09/18 22:50 Temazepam (Restoril) 15 mg HSPRN PRN ORAL Insomnia 11/08/18 07:45 11/15/18 07:44 11/11/18 21:25 Srini Mckay MD Nov 12, 2018 11:47
[2018-11-12 12:00] VITALS: BP 138/45
--- NOTE | 2018-11-12 12:20 | Nephrology Progress Note ---
Assessment/Plan Problem List: (1) Acute on chronic renal failure (2) History of unilateral nephrectomy (3) Low iron stores (4) Non-ST elevation (NSTEMI) myocardial infarction (5) CAD (coronary artery disease) Assessment Renal insufficiency due to combination of ONE functioning kidney and underlying DM and HTN Proteinuria indicative of Nephropathy -. Chronic obstructive pulmonary disease. -. Diabetes type 2. -. Hypertension. -. Coronary artery disease. elevated troponin Plan Plan: Optimize cardiac and Pulmonary status- monitor renal parameters- Avoid Nephrotoxics- urine studies Allopurinol Nitrate ASA Subjective ROS Limited/Unobtainable: No Constitutional: Reports: malaise, weakness Objective Objective Last 24 Hour Vital Signs Date Time Temp Pulse Resp B/P (MAP) Pulse Ox O2 Delivery O2 Flow Rate FiO2 11/12/18 08:45 140/44 11/12/18 08:45 62 140/44 11/12/18 08:45 96.8 62 22 140/44 (76) 95 11/12/18 08:00 59 11/12/18 08:00 Nasal Cannula 3.0 Nasal Cannula 3.0 11/12/18 07:13 60 14 97 Nasal Cannula 3.0 32 11/12/18 07:05 Nasal Cannula 3.0 32 11/12/18 07:05 60 14 95 Nasal Cannula 3.0 32 11/12/18 07:05 60 14 Nasal Cannula 3.0 32 11/12/18 04:00 97.5 62 22 142/50 (80) 96 11/12/18 04:00 Nasal Cannula 5.0 Nasal Cannula 3.0 11/12/18 04:00 61 11/12/18 01:35 79 18 98 Nasal Cannula 3.0 32 11/12/18 01:23 63 18 95 Nasal Cannula 3.0 32 11/12/18 00:00 Nasal Cannula 5.0 Nasal Cannula 3.0 11/12/18 00:00 97.0 68 20 128/50 (76) 94 11/12/18 00:00 61 11/11/18 21:00 61 133/50 11/11/18 20:00 Nasal Cannula 5.0 Nasal Cannula 3.0 11/11/18 20:00 64 11/11/18 20:00 97.2 60 20 133/50 (77) 94 11/11/18 19:57 64 18 98 Nasal Cannula 3.0 32 11/11/18 19:45 64 18 94 Nasal Cannula 3.0 32 11/11/18 19:45 Nasal Cannula 3.0 32 11/11/18 19:45 64 18 Nasal Cannula 3.0 32 11/11/18 16:00 97.5 62 20 126/48 (74) 94 11/11/18 16:00 Nasal Cannula 3.0 Nasal Cannula 3.0 11/11/18 16:00 63 11/11/18 15:28 80 24 99 Nasal Cannula 5.0 40 11/11/18 15:20 81 22 95 Nasal Cannula 5.0 40 11/11/18 15:19 73 22 99 Nasal Cannula 5.0 40 11/11/18 15:13 72 28 95 Nasal Cannula 5.0 40 Intake and Output 11/11/18 11/12/18 19:00 07:00 Intake Total 420 ml Output Total 500 ml 1000 ml Balance -80 ml -1000 ml Intake Oral 420 ml Output Urine Total 500 ml 1000 ml # Bowel Movements 1 Laboratory Tests 11/12/18 05:00: White Blood Count 5.6, Red Blood Count 3.69L, Hemoglobin 11.3L, Hematocrit 33.7L , Mean Corpuscular Volume 91, Mean Corpuscular Hemoglobin 30.6, Mean Corpuscular Hemoglobin Concent 33.5, Red Cell Distribution Width 12.9, Platelet Count 124L, Mean Platelet Volume 10.4H, Neutrophils (%) (Auto) 67.0, Lymphocytes (%) (Auto) 9.1L, Monocytes (%) (Auto) 16.0H, Eosinophils (%) (Auto) 6.4H, Basophils (%) (Auto) 1.5, Sodium Level 138, Potassium Level 4.5, Chloride Level 104, Carbon Dioxide Level 26, Anion Gap 9, Blood Urea Nitrogen 52H, Creatinine 2.5H, Estimat Glomerular Filtration Rate , Glucose Level 98, Calcium Level 9.2, Troponin I 0.058H Height (Feet): 6 Height (Inches): 0.00 Weight (Pounds): 180 General Appearance: no apparent distress Objective no change Jeff Blanco MD Nov 12, 2018 12:20
--- NOTE | 2018-11-12 13:01 | Infectious Diseases Prog Note ---
Assessment/Plan Assessment/Plan 88 yo male with PMHx of DM, Asthma and CAD who presented to the ED on 11/07/17 with SOB. CAP +/- CHF or Asthma -CXR 11/10: 1. No significant change in the diffuse prominent reticular interstitial markings, which may represent pulmonary interstitial edema/CHF. 2. Interval improved aeration in bilateral lung bases. 3. Minimal blunting of the left costophrenic angle may suggest a tiny residual left effusion. -sp cx normal resp martita -influenza sc neg Aferbile No leukocytosis CAD HTN DM Asthma PLAN - Continue Ceftriaxone #5 and Azithromycin #5 - 11/08/18 SP Cefepime and vancomycin- - Monitor CBC and Temps We will continue to follow the patient during this hospitalization. Subjective Allergies: Coded Allergies: No Known Allergies (Verified , 02/18/10) Subjective afebrile no leukocytosis at 2l NC Objective Vital Signs Last 24 Hour Vital Signs Date Time Temp Pulse Resp B/P (MAP) Pulse Ox O2 Delivery O2 Flow Rate FiO2 11/12/18 08:45 140/44 11/12/18 08:45 62 140/44 11/12/18 08:45 96.8 62 22 140/44 (76) 95 11/12/18 08:00 59 11/12/18 08:00 Nasal Cannula 3.0 Nasal Cannula 3.0 11/12/18 07:13 60 14 97 Nasal Cannula 3.0 32 11/12/18 07:05 Nasal Cannula 3.0 32 11/12/18 07:05 60 14 95 Nasal Cannula 3.0 32 11/12/18 07:05 60 14 Nasal Cannula 3.0 32 11/12/18 04:00 97.5 62 22 142/50 (80) 96 11/12/18 04:00 Nasal Cannula 5.0 Nasal Cannula 3.0 11/12/18 04:00 61 11/12/18 01:35 79 18 98 Nasal Cannula 3.0 32 11/12/18 01:23 63 18 95 Nasal Cannula 3.0 32 11/12/18 00:00 Nasal Cannula 5.0 Nasal Cannula 3.0 11/12/18 00:00 97.0 68 20 128/50 (76) 94 11/12/18 00:00 61 11/11/18 21:00 61 133/50 11/11/18 20:00 Nasal Cannula 5.0 Nasal Cannula 3.0 11/11/18 20:00 64 11/11/18 20:00 97.2 60 20 133/50 (77) 94 11/11/18 19:57 64 18 98 Nasal Cannula 3.0 32 11/11/18 19:45 64 18 94 Nasal Cannula 3.0 32 11/11/18 19:45 Nasal Cannula 3.0 32 11/11/18 19:45 64 18 Nasal Cannula 3.0 32 11/11/18 16:00 97.5 62 20 126/48 (74) 94 11/11/18 16:00 Nasal Cannula 3.0 Nasal Cannula 3.0 11/11/18 16:00 63 11/11/18 15:28 80 24 99 Nasal Cannula 5.0 40 11/11/18 15:20 81 22 95 Nasal Cannula 5.0 40 11/11/18 15:19 73 22 99 Nasal Cannula 5.0 40 11/11/18 15:13 72 28 95 Nasal Cannula 5.0 40 Height (Feet): 6 Height (Inches): 0.00 Weight (Pounds): 180 Objective Gen: NAD HEENT: NCAT, MMM, EOMI LUNGS: Course B/L , No W CARDS: RRR, S1, S2, No M/R/G, ABD: Soft, Obese, NT, ND, + BS NEURO: A/O x 3, Strength and sensation grossly intact. Microbiology Date/Time Source Procedure Growth Status 11/09/18 20:00 External Cath Urine Culture - Preliminary NO GROWTH AFTER 24 HOURS Resulted Laboratory Tests Test 11/12/18 05:00 White Blood Count 5.6 K/UL (4.8-10.8) Red Blood Count 3.69 M/UL (4.70-6.10) L Hemoglobin 11.3 G/DL (14.2-18.0) L Hematocrit 33.7 % (42.0-52.0) L Mean Corpuscular Volume 91 FL (80-99) Mean Corpuscular Hemoglobin 30.6 PG (27.0-31.0) Mean Corpuscular Hemoglobin Concent 33.5 G/DL (32.0-36.0) Red Cell Distribution Width 12.9 % (11.6-14.8) Platelet Count 124 K/UL (150-450) L Mean Platelet Volume 10.4 FL (6.5-10.1) H Neutrophils (%) (Auto) 67.0 % (45.0-75.0) Lymphocytes (%) (Auto) 9.1 % (20.0-45.0) L Monocytes (%) (Auto) 16.0 % (1.0-10.0) H Eosinophils (%) (Auto) 6.4 % (0.0-3.0) H Basophils (%) (Auto) 1.5 % (0.0-2.0) Sodium Level 138 MMOL/L (136-145) Potassium Level 4.5 MMOL/L (3.5-5.1) Chloride Level 104 MMOL/L (98-107) Carbon Dioxide Level 26 MMOL/L (21-32) Anion Gap 9 mmol/L (5-15) Blood Urea Nitrogen 52 mg/dL (7-18) H Creatinine 2.5 MG/DL (0.55-1.30) H Estimat Glomerular Filtration Rate mL/min (>60) Glucose Level 98 MG/DL (74-106) Calcium Level 9.2 MG/DL (8.5-10.1) Troponin I 0.058 ng/mL (0.000-0.056) Current Medications Medications (Trade) Dose Ordered Sig/Nathan Route PRN Reason Start Time Stop Time Status Last Admin Dose Admin Acetaminophen (Tylenol) 650 mg Q4H PRN ORAL fever 11/08/18 07:45 12/08/18 07:44 Albuterol/ Ipratropium (Albuterol/ Ipratropium) 3 ml Q6HRT HHN 11/10/18 19:00 11/15/18 18:59 11/12/18 07:11 Allopurinol (Allopurinol) 300 mg DAILY ORAL 11/10/18 09:00 12/09/18 08:59 11/12/18 08:45 Amiodarone HCl (Cordarone) 100 mg Q24H ORAL 11/08/18 21:00 12/08/18 20:59 11/11/18 21:25 Aspirin (ASA) 162 mg DAILY ORAL 11/08/18 14:30 12/08/18 14:29 11/12/18 08:45 Azithromycin (Zithromax) 250 mg DAILY ORAL 11/09/18 09:00 11/16/18 08:59 11/12/18 08:40 Carvedilol (Coreg) 3.125 mg EVERY 12 HOURS ORAL 11/08/18 09:00 12/08/18 08:59 11/12/18 08:45 Ceftriaxone Sodium 1 gm/ Dextrose 55 ml @ 110 mls/hr Q24H IVPB 11/08/18 10:00 11/15/18 09:59 11/12/18 11:20 Heparin Sodium (Porcine) (Heparin 5000 units/ml) 5,000 units EVERY 12 HOURS SUBQ 11/08/18 09:00 12/08/18 08:59 11/12/18 08:50 Isosorbide Mononitrate (Imdur) 30 mg DAILY ORAL 11/09/18 09:00 12/09/18 08:59 11/12/18 08:45 Methylprednisolone Sodium Succinate (Solu-MEDROL) 40 mg Q8HR IVP 11/12/18 14:00 12/12/18 13:59 Nitroglycerin (Ntg) 0.4 mg Q5M PRN SL Prn Chest Pain 11/08/18 07:45 12/08/18 07:44 11/11/18 03:50 Ondansetron HCl (Zofran) 4 mg Q6H PRN IVP Nausea & Vomiting 11/08/18 07:45 12/08/18 07:44 Pantoprazole (Protonix) 40 mg DAILY ORAL 11/09/18 09:00 12/09/18 08:59 11/12/18 08:46 Polyethylene Glycol (Miralax) 17 gm DAILYPRN PRN ORAL Constipation 11/08/18 07:45 12/08/18 07:44 11/12/18 11:20 Pravastatin Sodium (Pravachol) 40 mg BEDTIME ORAL 11/08/18 21:00 12/08/18 20:59 11/11/18 21:25 Promethazine HCl/ Codeine (Phenergan with Codeine) 5 ml Q4H PRN ORAL For Cough 11/08/18 07:45 12/08/18 07:44 11/09/18 22:50 Temazepam (Restoril) 15 mg HSPRN PRN ORAL Insomnia 11/08/18 07:45 11/15/18 07:44 11/11/18 21:25 Cassandra Staley M.D. 14, 2019 13:01
[2018-11-12] MEDS: Solu-MEDROL 40mg Inj IVP SCH ×2 (14:49→20:58)
[2018-11-12 16:00] VITALS: BP 146/45
--- NOTE | 2018-11-12 16:14 | NUR ---
CASE MANAGEMENT: REVIEW SI: RESP DISTRESS T 97.5 HR 62 RR 22 BP 142/50 SAT 96% NC/3L WBC 3.5 H/H 12.0/35.6 IS: AZITHROMYCIN PO QD PROTONIX PO QD ISOSORBIDE PO QD AMIODARONE PO Q24HR ASA PO QD CEFTRIAXONE IV Q24HR COREG PO Q12HR STEP DOWN UNIT STATUS DCP: PATIENT IS FROM HOME
[2018-11-12] MEDS ORDERED: NS 275ml ONE (17:08)
[2018-11-12] MEDS: Promethazine/Codeine 5ml UD ORAL PRN ×2 (18:17→22:51)
--- NOTE | 2018-11-12 18:18 | Internal Med Progress Note ---
Subjective Date of Service: Nov 12, 2018 Physician Name Lisandro Munguia Attending Physician Tobin Medel MD Current Medications Medications (Trade) Dose Ordered Sig/Nathan Route PRN Reason Start Time Stop Time Status Last Admin Dose Admin Acetaminophen (Tylenol) 650 mg Q4H PRN ORAL fever 11/08/18 07:45 12/08/18 07:44 Albuterol/ Ipratropium (Albuterol/ Ipratropium) 3 ml Q6HRT HHN 11/10/18 19:00 11/15/18 18:59 11/12/18 13:33 Allopurinol (Allopurinol) 300 mg DAILY ORAL 11/10/18 09:00 12/09/18 08:59 11/12/18 08:45 Amiodarone HCl (Cordarone) 100 mg Q24H ORAL 11/08/18 21:00 12/08/18 20:59 11/11/18 21:25 Aspirin (ASA) 162 mg DAILY ORAL 11/08/18 14:30 12/08/18 14:29 11/12/18 08:45 Carvedilol (Coreg) 3.125 mg EVERY 12 HOURS ORAL 11/08/18 09:00 12/08/18 08:59 11/12/18 08:45 Heparin Sodium (Porcine) (Heparin 5000 units/ml) 5,000 units EVERY 12 HOURS SUBQ 11/08/18 09:00 12/08/18 08:59 11/12/18 08:50 Isosorbide Mononitrate (Imdur) 30 mg DAILY ORAL 11/09/18 09:00 12/09/18 08:59 11/12/18 08:45 Methylprednisolone Sodium Succinate (Solu-MEDROL) 40 mg Q8HR IVP 11/12/18 14:00 12/12/18 13:59 11/12/18 14:49 Nitroglycerin (Ntg) 0.4 mg Q5M PRN SL Prn Chest Pain 11/08/18 07:45 12/08/18 07:44 11/11/18 03:50 Ondansetron HCl (Zofran) 4 mg Q6H PRN IVP Nausea & Vomiting 11/08/18 07:45 12/08/18 07:44 Pantoprazole (Protonix) 40 mg DAILY ORAL 11/09/18 09:00 12/09/18 08:59 11/12/18 08:46 Polyethylene Glycol (Miralax) 17 gm DAILYPRN PRN ORAL Constipation 11/08/18 07:45 12/08/18 07:44 11/12/18 11:20 Pravastatin Sodium (Pravachol) 40 mg BEDTIME ORAL 11/08/18 21:00 12/08/18 20:59 11/11/18 21:25 Promethazine HCl/ Codeine (Phenergan with Codeine) 5 ml Q4H PRN ORAL For Cough 11/08/18 07:45 12/08/18 07:44 11/09/18 22:50 Temazepam (Restoril) 15 mg HSPRN PRN ORAL Insomnia 11/08/18 07:45 11/15/18 07:44 11/11/18 21:25 Allergies: Coded Allergies: No Known Allergies (Verified , 02/18/10) ROS Limited/Unobtainable: Yes Subjective 88 YO M admitted with shortness of breath, now pneumonia. Cover for Int Med-Dr Medel. MARZENA. Tolerating nasal canula. C/O shortness of breath Objective Last Vital Signs Date Time Temp Pulse Resp B/P (MAP) Pulse Ox O2 Delivery O2 Flow Rate FiO2 11/12/18 16:00 59 11/12/18 13:45 16 98 Nasal Cannula 3.0 32 11/12/18 08:45 140/44 11/12/18 08:45 96.8 Laboratory Tests Test 11/12/18 05:00 White Blood Count 5.6 K/UL (4.8-10.8) Red Blood Count 3.69 M/UL (4.70-6.10) L Hemoglobin 11.3 G/DL (14.2-18.0) L Hematocrit 33.7 % (42.0-52.0) L Mean Corpuscular Volume 91 FL (80-99) Mean Corpuscular Hemoglobin 30.6 PG (27.0-31.0) Mean Corpuscular Hemoglobin Concent 33.5 G/DL (32.0-36.0) Red Cell Distribution Width 12.9 % (11.6-14.8) Platelet Count 124 K/UL (150-450) L Mean Platelet Volume 10.4 FL (6.5-10.1) H Neutrophils (%) (Auto) 67.0 % (45.0-75.0) Lymphocytes (%) (Auto) 9.1 % (20.0-45.0) L Monocytes (%) (Auto) 16.0 % (1.0-10.0) H Eosinophils (%) (Auto) 6.4 % (0.0-3.0) H Basophils (%) (Auto) 1.5 % (0.0-2.0) Sodium Level 138 MMOL/L (136-145) Potassium Level 4.5 MMOL/L (3.5-5.1) Chloride Level 104 MMOL/L (98-107) Carbon Dioxide Level 26 MMOL/L (21-32) Anion Gap 9 mmol/L (5-15) Blood Urea Nitrogen 52 mg/dL (7-18) H Creatinine 2.5 MG/DL (0.55-1.30) H Estimat Glomerular Filtration Rate mL/min (>60) Glucose Level 98 MG/DL (74-106) Calcium Level 9.2 MG/DL (8.5-10.1) Troponin I 0.058 ng/mL (0.000-0.056) Microbiology Date/Time Source Procedure Growth Status 11/09/18 20:00 External Cath Urine Culture - Preliminary NO GROWTH AFTER 24 HOURS Resulted Intake and Output 11/11/18 11/12/18 19:00 07:00 Intake Total 420 ml Output Total 500 ml 1000 ml Balance -80 ml -1000 ml Intake Oral 420 ml Output Urine Total 500 ml 1000 ml # Bowel Movements 1 Objective PHYSICAL EXAMINATION: GENERAL: The patient is a well-developed and well-nourished white male, in moderate respiratory distress. HEENT: Eyes, pupils are equal and responsive to light and accommodation. Extraocular movements are intact. NECK: Supple without lymphadenopathy. CHEST: Nasal canula; Lungs decreased breath sounds at bilateral bases with diffuse wheezes bilaterally. ABDOMEN: Soft, nontender, and nondistended. Positive bowel sounds. No evidence of hepatosplenomegaly. Currently, no rebound or guarding noted. EXTREMITIES: Negative for clubbing, cyanosis, or edema. RECTAL/GENITAL: Refused. NEUROLOGIC: Cranial nerves II through XII are grossly intact without focal deficits. Motor strength is 5/5 bilaterally. Deep tendon reflexes are 2+ plantar. Assessment/Plan Problem List: (1) Pneumonia Assessment & Plan: Continue ceftriaxone and azithromycin per ID (2) Respiratory distress Assessment & Plan: Tolerating nasal canula; May require BIPAP (3) Pulmonary edema (4) COPD (chronic obstructive pulmonary disease) Assessment & Plan: See pulmonary note. (5) Diabetes mellitus (6) HTN (hypertension) (7) Acute on chronic renal failure Assessment & Plan: See nephrology note (8) CHF (congestive heart failure) Assessment & Plan: await echo results. See cardiology note. Status: not improved Lisandro Munguia MD Nov 12, 2018 18:18
--- NOTE | 2018-11-12 19:17 | NUR ---
HAND-OFF: Report given to RN Bree patient awake watching TV no CP No distress.
--- NOTE | 2018-11-12 19:25 | NUR ---
NURSE NOTES: Received bedside report from CELINA Mccollum.Patient stable,A&O x 4,SR on night monitor,tolerated 3 L/min N/C well,no c/o chest pain or SOB,BS active in all quadrants,IV asymptomatic,intact on L f/arm 20G TKO,bed secured in a safe lower position,call light within a reach.Will continue to monitor and follow POC.Pt has an order from Dr. Mckay to transfer Med surge
[2018-11-12 20:00] VITALS: BP 142/50
[2018-11-12] MEDS: Amiodarone 200mg tab ORAL SCH (20:57)
--- NOTE | 2018-11-12 21:10 | Cardiology Progress Note ---
Assessment/Plan Assessment/Plan 1. Shortness of breath. 2. Bronchospasm. 3. History of chronic obstructive pulmonary disease. 4. History of coronary disease, status post two-vessel coronary bypass grafting. 5. History of aortic valve replacement. 6. History of chronic renal insufficiency. 7. History of possibly renal cancer, status post resection. 8. History of gastrointestinal bleed 9. phtn trop unchanged min abn no peak or antione to suggest acs likey related to renal insuf venous duplex neg echo pending i reviwed images wall motion seem ok ,, mod , Mild MS, pasp in the 50's hhn nitrates, bb, statin asa mom cxr infiltrates better ok to med surg Subjective Cardiovascular: Denies: chest pain Respiratory: Reports: shortness of breath Gastrointestinal/Abdominal: Denies: abdominal pain Genitourinary: Denies: burning Subjective knee pain Objective Last 24 Hour Vital Signs Date Time Temp Pulse Resp B/P (MAP) Pulse Ox O2 Delivery O2 Flow Rate FiO2 11/12/18 20:57 61 142/50 11/12/18 18:34 58 16 98 Nasal Cannula 3.0 32 11/12/18 18:21 61 20 Nasal Cannula 3.0 32 11/12/18 18:21 Nasal Cannula 3.0 32 11/12/18 18:21 61 20 9 Nasal Cannula 3.0 32 11/12/18 16:00 96.8 60 20 146/45 (78) 95 11/12/18 16:00 Nasal Cannula 3.0 Nasal Cannula 3.0 11/12/18 16:00 59 11/12/18 13:45 65 16 98 Nasal Cannula 3.0 32 11/12/18 13:33 63 15 97 Nasal Cannula 3.0 32 11/12/18 12:00 97.3 58 22 138/45 (76) 98 11/12/18 12:00 56 11/12/18 12:00 Nasal Cannula 3.0 Nasal Cannula 3.0 11/12/18 08:45 140/44 11/12/18 08:45 62 140/44 11/12/18 08:45 96.8 62 22 140/44 (76) 95 11/12/18 08:00 59 11/12/18 08:00 Nasal Cannula 3.0 Nasal Cannula 3.0 11/12/18 07:13 60 14 97 Nasal Cannula 3.0 32 11/12/18 07:05 Nasal Cannula 3.0 32 11/12/18 07:05 60 14 95 Nasal Cannula 3.0 32 11/12/18 07:05 60 14 Nasal Cannula 3.0 32 11/12/18 04:00 97.5 62 22 142/50 (80) 96 11/12/18 04:00 Nasal Cannula 5.0 Nasal Cannula 3.0 11/12/18 04:00 61 11/12/18 01:35 79 18 98 Nasal Cannula 3.0 32 11/12/18 01:23 63 18 95 Nasal Cannula 3.0 32 11/12/18 00:00 Nasal Cannula 5.0 Nasal Cannula 3.0 11/12/18 00:00 97.0 68 20 128/50 (76) 94 11/12/18 00:00 61 General Appearance: alert Neck: supple Cardiovascular: normal rate Respiratory/Chest: expiratory wheezing - imporved Abdomen: soft Extremities: no swelling Intake and Output 11/11/18 11/12/18 19:00 07:00 Intake Total 420 ml Output Total 500 ml 1000 ml Balance -80 ml -1000 ml Intake Oral 420 ml Output Urine Total 500 ml 1000 ml # Bowel Movements 1 Laboratory Tests Test 11/12/18 05:00 White Blood Count 5.6 K/UL (4.8-10.8) Red Blood Count 3.69 M/UL (4.70-6.10) L Hemoglobin 11.3 G/DL (14.2-18.0) L Hematocrit 33.7 % (42.0-52.0) L Mean Corpuscular Volume 91 FL (80-99) Mean Corpuscular Hemoglobin 30.6 PG (27.0-31.0) Mean Corpuscular Hemoglobin Concent 33.5 G/DL (32.0-36.0) Red Cell Distribution Width 12.9 % (11.6-14.8) Platelet Count 124 K/UL (150-450) L Mean Platelet Volume 10.4 FL (6.5-10.1) H Neutrophils (%) (Auto) 67.0 % (45.0-75.0) Lymphocytes (%) (Auto) 9.1 % (20.0-45.0) L Monocytes (%) (Auto) 16.0 % (1.0-10.0) H Eosinophils (%) (Auto) 6.4 % (0.0-3.0) H Basophils (%) (Auto) 1.5 % (0.0-2.0) Sodium Level 138 MMOL/L (136-145) Potassium Level 4.5 MMOL/L (3.5-5.1) Chloride Level 104 MMOL/L (98-107) Carbon Dioxide Level 26 MMOL/L (21-32) Anion Gap 9 mmol/L (5-15) Blood Urea Nitrogen 52 mg/dL (7-18) H Creatinine 2.5 MG/DL (0.55-1.30) H Estimat Glomerular Filtration Rate mL/min (>60) Glucose Level 98 MG/DL (74-106) Calcium Level 9.2 MG/DL (8.5-10.1) Troponin I 0.058 ng/mL (0.000-0.056) Edvin Andino MD Nov 12, 2018 21:10
--- NOTE | 2018-11-12 23:30 | NUR ---
NURSE NOTES: Transferred patient to 3E,patient stable during transferring,no c/o pain,no respiratory distress noted,tolerated portable oxygen well,report given to CELINA Shah.Belonging list signed,bed secured,patient oriented to own ability,speaks only Serbian.
--- NOTE | 2018-11-12 23:45 | NUR ---
NURSE NOTES: Pt transferred to unit from [facility] in stable condition and with belongings accounted for. Pt Jamaican speaking only; VSS; on 3L NC; and in no apparent respiratory distress. IV site intact/asymptomatic & H/L'd and skin intact. Will continue to monitor.
[2018-11-13] VITALS (7 sets, daily range): BP systolic 140–168; BP diastolic 44–68
[2018-11-13] MEDS ORDERED: Nitroglycerin Subl 0.4mg tab SL PRN
[2018-11-13] MEDS: Albuterol/Ipratropium 3ml neb HHN SCH ×4 (01:56→19:00)
--- NOTE | 2018-11-13 02:15 | Consultation ---
DATE OF CONSULTATION: 11/12/2018 CONSULTING PHYSICIAN: Teja Dietrich M.D. HISTORY OF PRESENT ILLNESS: This is a very pleasant 88-year-old gentleman that I was asked to evaluate in regard to his complaints of chest pain associated with chest discomfort and dizziness. The patient was seen and evaluated and a full physical exam was done. In summary, this is a very pleasant 88-year-old gentleman, who is status post aortic valve replacement as well as CABG x2. He is Chinese-speaking. His history was a bit difficult to obtain and I had to use a operations boardman. His ejection fraction is quite good at 55%, however, he will definitely need more workup in regard to his aortic valve, which was placed I believe in 2009. An echo was ordered and the result is pending. Also, it is possible due to the fact that his reverse saphenous vein grafts are almost 9 years old, possible stenosis could be present. At 88 years old, he will be an extremely difficult, most likely prohibitive surgical risk, however, a percutaneous intervention can be considered if needed. I have discussed the plan with Cardiology and Internal Medicine. I would like to continue workup and I will follow up after the completion to better evaluate the best line of treatment for this very pleasant gentleman. Teja Dietrich M.D. DR: STEPH JOB#: [id number] CC:
[2018-11-13] MEDS ORDERED: Promethazine/Codeine 5ml UD ORAL PRN (03:45)
[2018-11-13] MEDS: Solu-MEDROL 40mg Inj IVP SCH ×3 (05:52→21:15)
[2018-11-13 07:13] LABS: HEMATOCRIT 35.6 % (42.0-52.0); MEAN CORPUSCULAR VOLUME 91 FL (80-99); PLATELET COUNT 128 K/UL (150-450); RED CELL DISTRIBUTION WIDTH 12.6 % (11.6-14.8); WHITE BLOOD COUNT 3.5 K/UL (4.8-10.8)
[2018-11-13 07:26] LABS: ALANINE AMINOTRANSFERASE 23 U/L (12-78); ALBUMIN 3.1 G/DL (3.4-5.0); ALBUMIN/GLOBULIN RATIO 0.8 (1.0-2.7); ALKALINE PHOSPHATASE 79 U/L (46-116); ANION GAP 8 mmol/L (5-15); ASPARTATE AMINO TRANSFERASE 26 U/L (15-37); BILIRUBIN,TOTAL 0.3 MG/DL (0.2-1.0); BLOOD UREA NITROGEN 57 mg/dL (7-18); CALCIUM 9.1 MG/DL (8.5-10.1); CARBON DIOXIDE 27 MMOL/L (21-32); CHLORIDE 104 MMOL/L (98-107); CREATININE 2.4 MG/DL (0.55-1.30); PHOSPHORUS 5.1 MG/DL (2.5-4.9); POTASSIUM 5.6 MMOL/L (3.5-5.1); SODIUM 139 MMOL/L (136-145)
--- NOTE | 2018-11-13 07:30 | NUR ---
HAND-OFF: Report given to CELINA Paulino.
[2018-11-13] MEDS ORDERED: Miralax 17gm pkt ORAL PRN (07:45)
[2018-11-13] MEDS: Aspirin Baby 81mg ORAL SCH (08:36)
[2018-11-13] MEDS: Heparin 5000 units/ml inj SUBQ SCH ×2 (08:37→20:45)
[2018-11-13] MEDS: Imdur 30mg tab ORAL SCH (08:37)
--- NOTE | 2018-11-13 10:20 | NUR ---
REHAB MED PT NOTE CONSULT LUTHER CAMPOS, PATIENT WILL BENEFIT FROM SKILLED PT DURING STAY FOR RETURN TO [facility] RECOMMEND HOME PT [facility] [place] [facility]. PLAN OF CARE INITIATED. RAMONA FLORES PT DPT Addendum: 11/13/18 at 1025 by RAMONA FLORES PT Amended: Links added.
[2018-11-13] MEDS ORDERED: Sodium Polystyrene Sulfonate 15gm Powder ORAL SCH ×2 (11:45→13:45)
--- NOTE | 2018-11-13 11:46 | Nephrology Progress Note ---
Assessment/Plan Problem List: (1) Acute on chronic renal failure (2) History of unilateral nephrectomy (3) Low iron stores (4) Non-ST elevation (NSTEMI) myocardial infarction (5) CAD (coronary artery disease) Assessment Renal insufficiency due to combination of ONE functioning kidney and underlying DM and HTN Proteinuria indicative of Nephropathy -. Chronic obstructive pulmonary disease. -. Diabetes type 2. -. Hypertension. -. Coronary artery disease. elevated troponin Plan Plan: now on steroids Optimize cardiac and Pulmonary status- monitor renal parameters- Avoid Nephrotoxics- urine studies Allopurinol Nitrate ASA Subjective ROS Limited/Unobtainable: No Objective Objective Last 24 Hour Vital Signs Date Time Temp Pulse Resp B/P (MAP) Pulse Ox O2 Delivery O2 Flow Rate FiO2 11/13/18 09:05 60 20 100 Nasal Cannula 3.0 32 11/13/18 08:55 64 20 Nasal Cannula 3.0 32 11/13/18 08:55 68 20 98 Nasal Cannula 3.0 32 11/13/18 08:55 Nasal Cannula 3.0 32 11/13/18 08:37 148/68 11/13/18 08:36 68 148/68 11/13/18 08:00 97.1 62 23 148/68 (94) 97 11/13/18 05:30 59 151/44 (79) 11/13/18 04:29 98.2 63 19 168/49 (88) 93 11/13/18 01:00 Nasal Cannula 3.0 32 11/13/18 01:00 Nasal Cannula 3.0 32 11/13/18 00:00 98.0 64 17 147/44 (78) 94 11/12/18 20:57 61 142/50 11/12/18 20:00 Nasal Cannula 3.0 Nasal Cannula 3.0 11/12/18 20:00 96.8 61 28 142/50 (80) 96 11/12/18 19:16 64 11/12/18 18:34 58 16 98 Nasal Cannula 3.0 32 11/12/18 18:21 61 20 Nasal Cannula 3.0 32 11/12/18 18:21 Nasal Cannula 3.0 32 11/12/18 18:21 61 20 9 Nasal Cannula 3.0 32 11/12/18 16:00 96.8 60 20 146/45 (78) 95 11/12/18 16:00 Nasal Cannula 3.0 Nasal Cannula 3.0 11/12/18 16:00 59 11/12/18 13:45 65 16 98 Nasal Cannula 3.0 32 11/12/18 13:33 63 15 97 Nasal Cannula 3.0 32 11/12/18 12:00 97.3 58 22 138/45 (76) 98 11/12/18 12:00 56 11/12/18 12:00 Nasal Cannula 3.0 Nasal Cannula 3.0 Intake and Output 11/12/18 11/13/18 19:00 07:00 Intake Total 440 ml Output Total 900 ml 500 ml Balance -460 ml -500 ml Intake Oral 440 ml Output Urine Total 900 ml 500 ml # Voids 1 Laboratory Tests 11/13/18 05:25: White Blood Count 3.5L, Red Blood Count 3.90L, Hemoglobin 12.0L, Hematocrit 35.6L, Mean Corpuscular Volume 91, Mean Corpuscular Hemoglobin 30.7, Mean Corpuscular Hemoglobin Concent 33.6, Red Cell Distribution Width 12.6, Platelet Count 128L, Mean Platelet Volume 10.3H, Neutrophils (%) (Auto) , Lymphocytes (% ) (Auto) , Monocytes (%) (Auto) , Eosinophils (%) (Auto) , Basophils (%) (Auto) , Differential Total Cells Counted 100, Neutrophils % (Manual) 92H, Lymphocytes % (Manual) 6L, Monocytes % (Manual) 1, Eosinophils % (Manual) 0, Basophils % ( Manual) 0, Band Neutrophils 1, Platelet Estimate DecreasedL, Platelet Morphology Normal, Red Blood Cell Morphology Normal, Erythrocyte Sedimentation Rate 48H, Sodium Level 139, Potassium Level 5.6H, Chloride Level 104, Carbon Dioxide Level 27, Anion Gap 8, Blood Urea Nitrogen 57H, Creatinine 2.4H, Estimat Glomerular Filtration Rate , Glucose Level 160H, Calcium Level 9.1, Phosphorus Level 5.1H, Magnesium Level 2.3, Total Bilirubin 0.3, Aspartate Amino Transf (AST/SGOT) 26, Alanine Aminotransferase (ALT/SGPT) 23, Alkaline Phosphatase 79, Troponin I 0.035, Total Protein 6.8, Albumin 3.1L, Globulin 3.7 , Albumin/Globulin Ratio 0.8L Height (Feet): 6 Height (Inches): 0.00 Weight (Pounds): 180 General Appearance: no apparent distress Cardiovascular: normal rate Respiratory/Chest: decreased breath sounds Abdomen: soft Objective no change Jeff Blanco MD Nov 13, 2018 11:46
--- NOTE | 2018-11-13 12:09 | Infectious Diseases Prog Note ---
Assessment/Plan Assessment/Plan 88 yo male with PMHx of DM, Asthma and CAD who presented to the ED on 11/07/17 with SOB. CAP +/- CHF or Asthma -CXR 11/10: 1. No significant change in the diffuse prominent reticular interstitial markings, which may represent pulmonary interstitial edema/CHF. 2. Interval improved aeration in bilateral lung bases. 3. Minimal blunting of the left costophrenic angle may suggest a tiny residual left effusion. -sp cx normal resp martita -influenza sc neg Aferbile No leukocytosis CAD HTN DM Asthma PLAN - Continue Ceftriaxone #6 and Azithromycin #6/7 - if discharge, ok to transition to PO levaquin - 11/08/18 SP Cefepime and vancomycin- - Monitor CBC and Temps We will continue to follow the patient during this hospitalization. Subjective Allergies: Coded Allergies: No Known Allergies (Verified , 02/18/10) Subjective afebrile no leukocytosis at 2l NC Objective Vital Signs Last 24 Hour Vital Signs Date Time Temp Pulse Resp B/P (MAP) Pulse Ox O2 Delivery O2 Flow Rate FiO2 11/13/18 09:05 60 20 100 Nasal Cannula 3.0 32 11/13/18 08:55 64 20 Nasal Cannula 3.0 32 11/13/18 08:55 68 20 98 Nasal Cannula 3.0 32 11/13/18 08:55 Nasal Cannula 3.0 32 11/13/18 08:37 148/68 11/13/18 08:36 68 148/68 11/13/18 08:00 97.1 62 23 148/68 (94) 97 11/13/18 05:30 59 151/44 (79) 11/13/18 04:29 98.2 63 19 168/49 (88) 93 11/13/18 01:00 Nasal Cannula 3.0 32 11/13/18 01:00 Nasal Cannula 3.0 32 11/13/18 00:00 98.0 64 17 147/44 (78) 94 11/12/18 20:57 61 142/50 11/12/18 20:00 Nasal Cannula 3.0 Nasal Cannula 3.0 11/12/18 20:00 96.8 61 28 142/50 (80) 96 11/12/18 19:16 64 11/12/18 18:34 58 16 98 Nasal Cannula 3.0 32 11/12/18 18:21 61 20 Nasal Cannula 3.0 32 11/12/18 18:21 Nasal Cannula 3.0 32 11/12/18 18:21 61 20 9 Nasal Cannula 3.0 32 11/12/18 16:00 96.8 60 20 146/45 (78) 95 11/12/18 16:00 Nasal Cannula 3.0 Nasal Cannula 3.0 11/12/18 16:00 59 11/12/18 13:45 65 16 98 Nasal Cannula 3.0 32 11/12/18 13:33 63 15 97 Nasal Cannula 3.0 32 Height (Feet): 6 Height (Inches): 0.00 Weight (Pounds): 180 Objective Gen: NAD HEENT: NCAT, MMM, EOMI LUNGS: Course B/L , No W CARDS: RRR, S1, S2, No M/R/G, ABD: Soft, Obese, NT, ND, + BS NEURO: A/O x 3, Strength and sensation grossly intact. Laboratory Tests Test 11/13/18 05:25 White Blood Count 3.5 K/UL (4.8-10.8) L Red Blood Count 3.90 M/UL (4.70-6.10) L Hemoglobin 12.0 G/DL (14.2-18.0) L Hematocrit 35.6 % (42.0-52.0) L Mean Corpuscular Volume 91 FL (80-99) Mean Corpuscular Hemoglobin 30.7 PG (27.0-31.0) Mean Corpuscular Hemoglobin Concent 33.6 G/DL (32.0-36.0) Red Cell Distribution Width 12.6 % (11.6-14.8) Platelet Count 128 K/UL (150-450) L Mean Platelet Volume 10.3 FL (6.5-10.1) H Neutrophils (%) (Auto) % (45.0-75.0) Lymphocytes (%) (Auto) % (20.0-45.0) Monocytes (%) (Auto) % (1.0-10.0) Eosinophils (%) (Auto) % (0.0-3.0) Basophils (%) (Auto) % (0.0-2.0) Differential Total Cells Counted 100 Neutrophils % (Manual) 92 % (45-75) H Lymphocytes % (Manual) 6 % (20-45) L Monocytes % (Manual) 1 % (1-10) Eosinophils % (Manual) 0 % (0-3) Basophils % (Manual) 0 % (0-2) Band Neutrophils 1 % (0-8) Platelet Estimate Decreased L Platelet Morphology Normal Red Blood Cell Morphology Normal Erythrocyte Sedimentation Rate 48 MM/HR (0-20) H Sodium Level 139 MMOL/L (136-145) Potassium Level 5.6 MMOL/L (3.5-5.1) H Chloride Level 104 MMOL/L (98-107) Carbon Dioxide Level 27 MMOL/L (21-32) Anion Gap 8 mmol/L (5-15) Blood Urea Nitrogen 57 mg/dL (7-18) H Creatinine 2.4 MG/DL (0.55-1.30) H Estimat Glomerular Filtration Rate mL/min (>60) Glucose Level 160 MG/DL (74-106) H Calcium Level 9.1 MG/DL (8.5-10.1) Phosphorus Level 5.1 MG/DL (2.5-4.9) H Magnesium Level 2.3 MG/DL (1.8-2.4) Total Bilirubin 0.3 MG/DL (0.2-1.0) Aspartate Amino Transf (AST/SGOT) 26 U/L (15-37) Alanine Aminotransferase (ALT/SGPT) 23 U/L (12-78) Alkaline Phosphatase 79 U/L (46-116) Troponin I 0.035 ng/mL (0.000-0.056) Total Protein 6.8 G/DL (6.4-8.2) Albumin 3.1 G/DL (3.4-5.0) L Globulin 3.7 g/dL Albumin/Globulin Ratio 0.8 (1.0-2.7) L Current Medications Medications (Trade) Dose Ordered Sig/Nathan Route PRN Reason Start Time Stop Time Status Last Admin Dose Admin Acetaminophen (Tylenol) 650 mg Q4H PRN ORAL fever 11/13/18 03:45 12/08/18 07:44 Albuterol/ Ipratropium (Albuterol/ Ipratropium) 3 ml Q6HRT HHN 11/13/18 01:00 11/15/18 18:59 11/13/18 08:55 Allopurinol (Allopurinol) 150 mg DAILY ORAL 1/15/19 09:00 12/09/18 08:59 11/13/18 08:37 Amiodarone HCl (Cordarone) 100 mg Q24H ORAL 11/13/18 21:00 12/08/18 20:59 Aspirin (ASA) 162 mg DAILY ORAL 11/13/18 09:00 12/08/18 14:29 11/13/18 08:36 Carvedilol (Coreg) 3.125 mg EVERY 12 HOURS ORAL 11/13/18 09:00 12/08/18 08:59 11/13/18 08:36 Heparin Sodium (Porcine) (Heparin 5000 units/ml) 5,000 units EVERY 12 HOURS SUBQ 11/13/18 09:00 12/08/18 08:59 Isosorbide Mononitrate (Imdur) 30 mg DAILY ORAL 11/13/18 09:00 12/09/18 08:59 11/13/18 08:37 Methylprednisolone Sodium Succinate (Solu-MEDROL) 40 mg Q8HR IVP 11/13/18 06:00 12/12/18 13:59 11/13/18 05:52 Nitroglycerin (Ntg) 0.4 mg Q5M PRN SL Prn Chest Pain 11/13/18 00:00 12/08/18 07:44 Ondansetron HCl (Zofran) 4 mg Q6H PRN IVP Nausea & Vomiting 11/13/18 01:45 12/08/18 07:44 Pantoprazole (Protonix) 40 mg DAILY ORAL 11/13/18 09:00 12/09/18 08:59 11/13/18 08:36 Polyethylene Glycol (Miralax) 17 gm DAILYPRN PRN ORAL Constipation 11/13/18 07:45 12/08/18 07:44 Pravastatin Sodium (Pravachol) 40 mg BEDTIME ORAL 11/13/18 21:00 12/08/18 20:59 Promethazine HCl/ Codeine (Phenergan with Codeine) 5 ml Q4H PRN ORAL For Cough 11/13/18 03:45 12/08/18 07:44 Sodium Polystyrene Sulfonate (Kayexalate) 45 gm ONCE ORAL 11/13/18 11:45 11/13/18 13:00 Temazepam (Restoril) 15 mg HSPRN PRN ORAL Insomnia 11/13/18 07:45 11/15/18 07:44 Cassandra Staley M.D. Nov 13, 2018 12:09
--- NOTE | 2018-11-13 12:30 | NUR ---
NURSE NOTES: PATIENT REMAINS STABLE. SEEN BY PCP AND CONSULTS TODAY WITH DAUGHTER AT BEDSIDE. QUESTIONS ANSWERED. NEEDS MET. NO DISCHARGE ORDER AT THIS TIME. PER DAUGHTER GÓMEZ, WILL LEAVE FOR WORK IN [place] SOON. WILL CALL LATER TO GIVE ANY UPDATES. PATIENT UP TO CHAIR. SEEN BY P.T. DOING VERY WELL. CAREGIVER AT BEDSIDE.CALL LIGHT WITHIN REACH. WILL CONTINUE TO MONITOR.
[2018-11-13] MEDS ORDERED: cefTRIAXone 1 GM in D5W 55 ML IVPB SCH (13:00)
[2018-11-13] MEDS: Azithromycin 250mg tab ORAL SCH (13:41)
[2018-11-13] MEDS ORDERED: PACERONE200 MG ORAL (13:55)
[2018-11-13] MEDS ORDERED: ALLOPURINOL100 M1 ORAL (13:55)
--- NOTE | 2018-11-13 13:56 | Pulmonology Progress Note ---
Assessment/Plan Problems: (1) Acute respiratory failure (2) Non-ST elevation (NSTEMI) myocardial infarction (3) COPD (chronic obstructive pulmonary disease) (4) Pulmonary edema (5) Hx of CABG (6) CAD (coronary artery disease) (7) Diabetes mellitus (8) HTN (hypertension) Assessment/Plan doing better Echo reviewed, EF is 55% respiratory treatment check sputum, still pending prn diuretics ( he got lasix 40 in ER) f/u electrolytes and renal US titrate fio2 to saturation of 92% sliding scale diabetic diet dvt prophylaxis. dc home today prescription given Subjective ROS Limited/Unobtainable: No Constitutional: Reports: no symptoms HEENT: Repors: no symptoms Respiratory: Reports: no symptoms Allergies: Coded Allergies: No Known Allergies (Verified , 02/18/10) Objective Last 24 Hour Vital Signs Date Time Temp Pulse Resp B/P (MAP) Pulse Ox O2 Delivery O2 Flow Rate FiO2 11/13/18 13:38 61 20 99 Nasal Cannula 3.0 32 11/13/18 13:28 61 20 96 Nasal Cannula 3.0 32 11/13/18 12:00 97.4 62 20 140/60 (86) 93 11/13/18 09:05 60 20 100 Nasal Cannula 3.0 32 11/13/18 09:00 Nasal Cannula 3.0 11/13/18 08:55 64 20 Nasal Cannula 3.0 32 11/13/18 08:55 68 20 98 Nasal Cannula 3.0 32 11/13/18 08:55 Nasal Cannula 3.0 32 11/13/18 08:37 148/68 11/13/18 08:36 68 148/68 11/13/18 08:00 97.1 62 23 148/68 (94) 97 11/13/18 05:30 59 151/44 (79) 11/13/18 04:29 98.2 63 19 168/49 (88) 93 11/13/18 01:00 Nasal Cannula 3.0 32 11/13/18 01:00 Nasal Cannula 3.0 32 11/13/18 00:00 98.0 64 17 147/44 (78) 94 11/12/18 20:57 61 142/50 11/12/18 20:00 Nasal Cannula 3.0 Nasal Cannula 3.0 11/12/18 20:00 96.8 61 28 142/50 (80) 96 11/12/18 19:16 64 11/12/18 18:34 58 16 98 Nasal Cannula 3.0 32 11/12/18 18:21 61 20 Nasal Cannula 3.0 32 11/12/18 18:21 Nasal Cannula 3.0 32 11/12/18 18:21 61 20 9 Nasal Cannula 3.0 32 11/12/18 16:00 96.8 60 20 146/45 (78) 95 11/12/18 16:00 Nasal Cannula 3.0 Nasal Cannula 3.0 11/12/18 16:00 59 Intake and Output 11/12/18 11/13/18 19:00 07:00 Intake Total 440 ml Output Total 900 ml 500 ml Balance -460 ml -500 ml Intake Oral 440 ml Output Urine Total 900 ml 500 ml # Voids 1 General Appearance: WD/WN HEENT: normocephalic, atraumatic Respiratory/Chest: chest wall non-tender, lungs clear, normal breath sounds Cardiovascular: normal peripheral pulses, normal rate Abdomen: normal bowel sounds, no organomegaly Genitourinary: normal external genitalia Neurologic/Psychiatric: no motor/sensory deficits Laboratory Tests 11/13/18 05:25: White Blood Count 3.5L, Red Blood Count 3.90L, Hemoglobin 12.0L, Hematocrit 35.6L, Mean Corpuscular Volume 91, Mean Corpuscular Hemoglobin 30.7, Mean Corpuscular Hemoglobin Concent 33.6, Red Cell Distribution Width 12.6, Platelet Count 128L, Mean Platelet Volume 10.3H, Neutrophils (%) (Auto) , Lymphocytes (% ) (Auto) , Monocytes (%) (Auto) , Eosinophils (%) (Auto) , Basophils (%) (Auto) , Differential Total Cells Counted 100, Neutrophils % (Manual) 92H, Lymphocytes % (Manual) 6L, Monocytes % (Manual) 1, Eosinophils % (Manual) 0, Basophils % ( Manual) 0, Band Neutrophils 1, Platelet Estimate DecreasedL, Platelet Morphology Normal, Red Blood Cell Morphology Normal, Erythrocyte Sedimentation Rate 48H, Sodium Level 139, Potassium Level 5.6H, Chloride Level 104, Carbon Dioxide Level 27, Anion Gap 8, Blood Urea Nitrogen 57H, Creatinine 2.4H, Estimat Glomerular Filtration Rate , Glucose Level 160H, Calcium Level 9.1, Phosphorus Level 5.1H, Magnesium Level 2.3, Total Bilirubin 0.3, Aspartate Amino Transf (AST/SGOT) 26, Alanine Aminotransferase (ALT/SGPT) 23, Alkaline Phosphatase 79, Troponin I 0.035, Total Protein 6.8, Albumin 3.1L, Globulin 3.7 , Albumin/Globulin Ratio 0.8L Current Medications Medications (Trade) Dose Ordered Sig/Nathan Route PRN Reason Start Time Stop Time Status Last Admin Dose Admin Acetaminophen (Tylenol) 650 mg Q4H PRN ORAL fever 11/13/18 03:45 12/08/18 07:44 Albuterol/ Ipratropium (Albuterol/ Ipratropium) 3 ml Q6HRT HHN 11/13/18 01:00 11/15/18 18:59 11/13/18 13:29 Allopurinol (Allopurinol) 150 mg DAILY ORAL 11/13/18 09:00 12/09/18 08:59 11/13/18 08:37 Amiodarone HCl (Cordarone) 100 mg Q24H ORAL 11/13/18 21:00 12/08/18 20:59 Aspirin (ASA) 162 mg DAILY ORAL 11/13/18 09:00 12/08/18 14:29 11/13/18 08:36 Azithromycin (Zithromax) 500 mg DAILY ORAL 11/13/18 12:15 11/14/18 23:59 11/13/18 13:41 Carvedilol (Coreg) 3.125 mg EVERY 12 HOURS ORAL 11/13/18 09:00 12/08/18 08:59 11/13/18 08:36 Ceftriaxone Sodium 1 gm/ Dextrose 55 ml @ 110 mls/hr Q24H IVPB 11/13/18 13:00 11/14/18 12:59 Heparin Sodium (Porcine) (Heparin 5000 units/ml) 5,000 units EVERY 12 HOURS SUBQ 11/13/18 09:00 12/08/18 08:59 Isosorbide Mononitrate (Imdur) 30 mg DAILY ORAL 11/13/18 09:00 12/09/18 08:59 11/13/18 08:37 Methylprednisolone Sodium Succinate (Solu-MEDROL) 40 mg Q8HR IVP 11/13/18 06:00 12/12/18 13:59 11/13/18 13:42 Nitroglycerin (Ntg) 0.4 mg Q5M PRN SL Prn Chest Pain 11/13/18 00:00 12/08/18 07:44 Ondansetron HCl (Zofran) 4 mg Q6H PRN IVP Nausea & Vomiting 11/13/18 01:45 12/08/18 07:44 Pantoprazole (Protonix) 40 mg DAILY ORAL 11/13/18 09:00 12/09/18 08:59 11/13/18 08:36 Polyethylene Glycol (Miralax) 17 gm DAILYPRN PRN ORAL Constipation 11/13/18 07:45 12/08/18 07:44 Pravastatin Sodium (Pravachol) 40 mg BEDTIME ORAL 11/13/18 21:00 12/08/18 20:59 Promethazine HCl/ Codeine (Phenergan with Codeine) 5 ml Q4H PRN ORAL For Cough 11/13/18 03:45 12/08/18 07:44 Sodium Polystyrene Sulfonate (Kayexalate) 45 gm ONCE ORAL 11/13/18 13:45 11/13/18 15:00 11/13/18 13:42 Temazepam (Restoril) 15 mg HSPRN PRN ORAL Insomnia 11/13/18 07:45 11/15/18 07:44 Srini Mckay MD Nov 13, 2018 13:56
--- NOTE | 2018-11-13 14:00 | NUR ---
NURSE NOTES: PATIENT SEEN BY DR. CAAL. BMP RESULTED. K 5.5/ MG 5.1. NEW ORDERS RECEIVED TO ADMINISTER KAYXELATE 45 GM PO. JEFFREY MAGAÑA AT BEDSIDE AND MEDICATION EXPLAINED TO DTR /PT.
--- NOTE | 2018-11-13 15:15 | NUR ---
NURSE NOTES: DISCHARGE ORDER RECEIVED. CAREGIVER LEFT FOR THE DAY. PLACED CALL TO DAUGHTER GÓMEZ FOR UPDATE. 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 WILL NOT BE AVAILABLE. MADE DR. WALKER AWARE OF SITUATION. STILL WANTED TO DC PATIENT.PT UNABLE TO CARE FOR SELF WITHOUT SUPERVISION.CAREGIVER UNAVAILABLE WELL.
--- NOTE | 2018-11-13 17:30 | NUR ---
NURSE NOTES: DR. GRIFFIN HERE TO SEE PATIENT. ALSO INFORMED OF CURRENT SITUATION. DISCHARGE CANCELED. ENDORSED TO NIGHT RN TO DAY RN TO CALL DR. GRIFFIN FOR DC ORDER IN A.M. PLACED CALL TO DTR, GÓMEZ [phone]. 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
--- NOTE | 2018-11-13 18:03 | Internal Med Progress Note ---
Subjective Date of Service: Nov 13, 2018 Physician Name Lisandro Munguia Attending Physician Tobin Medel MD Current Medications Medications (Trade) Dose Ordered Sig/Nathan Route PRN Reason Start Time Stop Time Status Last Admin Dose Admin Acetaminophen (Tylenol) 650 mg Q4H PRN ORAL fever 11/13/18 03:45 12/08/18 07:44 Albuterol/ Ipratropium (Albuterol/ Ipratropium) 3 ml Q6HRT HHN 11/13/18 01:00 11/15/18 18:59 11/13/18 13:29 Allopurinol (Allopurinol) 150 mg DAILY ORAL 11/13/18 09:00 12/09/18 08:59 11/13/18 08:37 Amiodarone HCl (Cordarone) 100 mg Q24H ORAL 11/13/18 21:00 12/08/18 20:59 Aspirin (ASA) 162 mg DAILY ORAL 11/13/18 09:00 12/08/18 14:29 11/13/18 08:36 Azithromycin (Zithromax) 500 mg DAILY ORAL 11/13/18 12:15 11/14/18 23:59 11/13/18 13:41 Carvedilol (Coreg) 3.125 mg EVERY 12 HOURS ORAL 11/13/18 09:00 12/08/18 08:59 11/13/18 08:36 Ceftriaxone Sodium 1 gm/ Dextrose 55 ml @ 110 mls/hr Q24H IVPB 11/13/18 13:00 11/14/18 12:59 11/13/18 13:58 Heparin Sodium (Porcine) (Heparin 5000 units/ml) 5,000 units EVERY 12 HOURS SUBQ 11/13/18 09:00 12/08/18 08:59 Isosorbide Mononitrate (Imdur) 30 mg DAILY ORAL 11/13/18 09:00 12/09/18 08:59 11/13/18 08:37 Methylprednisolone Sodium Succinate (Solu-MEDROL) 40 mg Q8HR IVP 11/13/18 06:00 12/12/18 13:59 11/13/18 13:42 Nitroglycerin (Ntg) 0.4 mg Q5M PRN SL Prn Chest Pain 11/13/18 00:00 12/08/18 07:44 Ondansetron HCl (Zofran) 4 mg Q6H PRN IVP Nausea & Vomiting 11/13/18 01:45 12/08/18 07:44 Pantoprazole (Protonix) 40 mg DAILY ORAL 11/13/18 09:00 12/09/18 08:59 11/13/18 08:36 Polyethylene Glycol (Miralax) 17 gm DAILYPRN PRN ORAL Constipation 11/13/18 07:45 12/08/18 07:44 Pravastatin Sodium (Pravachol) 40 mg BEDTIME ORAL 11/13/18 21:00 12/08/18 20:59 Promethazine HCl/ Codeine (Phenergan with Codeine) 5 ml Q4H PRN ORAL For Cough 11/13/18 03:45 12/08/18 07:44 Temazepam (Restoril) 15 mg HSPRN PRN ORAL Insomnia 11/13/18 07:45 11/15/18 07:44 Allergies: Coded Allergies: No Known Allergies (Verified , 02/18/10) ROS Limited/Unobtainable: No Constitutional: Reports: no symptoms HEENT: Reports: no symptoms Cardiovascular: Reports: no symptoms Respiratory: Reports: no symptoms Gastrointestinal/Abdominal: Reports: no symptoms Genitourinary: Reports: no symptoms Neurologic/Psychiatric: Reports: no symptoms Subjective 88 YO M admitted with shortness of breath, now pneumonia. Cover for Int Med-Dr Medel. MARZENA. Tolerating nasal canula. Objective Last Vital Signs Date Time Temp Pulse Resp B/P (MAP) Pulse Ox O2 Delivery O2 Flow Rate FiO2 11/13/18 16:00 97.3 60 21 157/51 (86) 94 11/13/18 13:38 Nasal Cannula 3.0 32 Laboratory Tests Test 11/13/18 05:25 White Blood Count 3.5 K/UL (4.8-10.8) L Red Blood Count 3.90 M/UL (4.70-6.10) L Hemoglobin 12.0 G/DL (14.2-18.0) L Hematocrit 35.6 % (42.0-52.0) L Mean Corpuscular Volume 91 FL (80-99) Mean Corpuscular Hemoglobin 30.7 PG (27.0-31.0) Mean Corpuscular Hemoglobin Concent 33.6 G/DL (32.0-36.0) Red Cell Distribution Width 12.6 % (11.6-14.8) Platelet Count 128 K/UL (150-450) L Mean Platelet Volume 10.3 FL (6.5-10.1) H Neutrophils (%) (Auto) % (45.0-75.0) Lymphocytes (%) (Auto) % (20.0-45.0) Monocytes (%) (Auto) % (1.0-10.0) Eosinophils (%) (Auto) % (0.0-3.0) Basophils (%) (Auto) % (0.0-2.0) Differential Total Cells Counted 100 Neutrophils % (Manual) 92 % (45-75) H Lymphocytes % (Manual) 6 % (20-45) L Monocytes % (Manual) 1 % (1-10) Eosinophils % (Manual) 0 % (0-3) Basophils % (Manual) 0 % (0-2) Band Neutrophils 1 % (0-8) Platelet Estimate Decreased L Platelet Morphology Normal Red Blood Cell Morphology Normal Erythrocyte Sedimentation Rate 48 MM/HR (0-20) H Sodium Level 139 MMOL/L (136-145) Potassium Level 5.6 MMOL/L (3.5-5.1) H Chloride Level 104 MMOL/L (98-107) Carbon Dioxide Level 27 MMOL/L (21-32) Anion Gap 8 mmol/L (5-15) Blood Urea Nitrogen 57 mg/dL (7-18) H Creatinine 2.4 MG/DL (0.55-1.30) H Estimat Glomerular Filtration Rate mL/min (>60) Glucose Level 160 MG/DL (74-106) H Calcium Level 9.1 MG/DL (8.5-10.1) Phosphorus Level 5.1 MG/DL (2.5-4.9) H Magnesium Level 2.3 MG/DL (1.8-2.4) Total Bilirubin 0.3 MG/DL (0.2-1.0) Aspartate Amino Transf (AST/SGOT) 26 U/L (15-37) Alanine Aminotransferase (ALT/SGPT) 23 U/L (12-78) Alkaline Phosphatase 79 U/L (46-116) Troponin I 0.035 ng/mL (0.000-0.056) Total Protein 6.8 G/DL (6.4-8.2) Albumin 3.1 G/DL (3.4-5.0) L Globulin 3.7 g/dL Albumin/Globulin Ratio 0.8 (1.0-2.7) L Intake and Output 11/12/18 11/13/18 19:00 07:00 Intake Total 440 ml Output Total 900 ml 500 ml Balance -460 ml -500 ml Intake Oral 440 ml Output Urine Total 900 ml 500 ml # Voids 1 Objective PHYSICAL EXAMINATION: GENERAL: The patient is a well-developed and well-nourished white male, in moderate respiratory distress. HEENT: Eyes, pupils are equal and responsive to light and accommodation. Extraocular movements are intact. NECK: Supple without lymphadenopathy. CHEST: Nasal canula; Lungs decreased breath sounds at bilateral bases with diffuse wheezes bilaterally. ABDOMEN: Soft, nontender, and nondistended. Positive bowel sounds. No evidence of hepatosplenomegaly. Currently, no rebound or guarding noted. EXTREMITIES: Negative for clubbing, cyanosis, or edema. RECTAL/GENITAL: Refused. NEUROLOGIC: Cranial nerves II through XII are grossly intact without focal deficits. Motor strength is 5/5 bilaterally. Deep tendon reflexes are 2+ plantar. Assessment/Plan Problem List: (1) Pneumonia Assessment & Plan: Continue ceftriaxone and azithromycin per ID (2) Respiratory distress Assessment & Plan: Tolerating nasal canula; May require BIPAP (3) Pulmonary edema (4) COPD (chronic obstructive pulmonary disease) Assessment & Plan: See pulmonary note. (5) Diabetes mellitus (6) HTN (hypertension) (7) Acute on chronic renal failure Assessment & Plan: See nephrology note (8) CHF (congestive heart failure) Assessment & Plan: await echo results. See cardiology note. Assessment/Plan Discharge in am when patient daughter is available to transfer patient home Lisandro Munguia MD Nov 13, 2018 18:02
--- NOTE | 2018-11-13 19:30 | NUR ---
HAND-OFF: Report given to AKOSUA PATRICK.
--- NOTE | 2018-11-13 19:35 | NUR ---
Received report from CELINA Paulino. Patient A&Ox3, French speaking. On nasal cannula, 3L/min, no signs of distress. IV intact, patent, and saline locked. No signs/symptoms of pain. Condom cath on, intact, patent, and draining urine. Bed in lowest position with call light in reach. Will continue to monitor.
[2018-11-13] MEDS ORDERED: Amiodarone 200mg tab ORAL SCH (21:00)
[2018-11-14] VITALS: BP 155/46
[2018-11-14] MEDS: Albuterol/Ipratropium 3ml neb HHN SCH ×3 (01:00→07:20)
[2018-11-14 04:00] VITALS: BP 146/63
[2018-11-14] MEDS: Solu-MEDROL 40mg Inj IVP SCH (05:40)
[2018-11-14 08:00] VITALS: BP 123/89
[2018-11-14] MEDS ORDERED: NS 500ML ONE (08:01)
[2018-11-14] MEDS ORDERED: Tubing IV Secondary IV ONE (08:01)
[2018-11-14 08:09] LABS: HEMATOCRIT 36.9 % (42.0-52.0); HEMOGLOBIN 12.4 G/DL (14.2-18.0); MEAN CORPUSCULAR VOLUME 92 FL (80-99); PLATELET COUNT 130 K/UL (150-450); RED BLOOD COUNT 4.02 M/UL (4.70-6.10); RED CELL DISTRIBUTION WIDTH 12.7 % (11.6-14.8); WHITE BLOOD COUNT 12.8 K/UL (4.8-10.8)
[2018-11-14 08:22] LABS: ANION GAP 10 mmol/L (5-15); BLOOD UREA NITROGEN 70 mg/dL (7-18); CALCIUM 8.6 MG/DL (8.5-10.1); CARBON DIOXIDE 23 MMOL/L (21-32); CHLORIDE 104 MMOL/L (98-107); CREATININE 2.2 MG/DL (0.55-1.30); POTASSIUM 5.3 MMOL/L (3.5-5.1); SODIUM 137 MMOL/L (136-145)
--- NOTE | 2018-11-14 08:26 | NUR ---
NURSE NOTES: Patient alert x3, vietnamese speaking, on Nasal cannula, currently taking breathing treatment, no sign of distress and shortness of breath. No sign of chest pain. Skin intact, heel protector in place for both heels. Condom cath in place, drains well. IV Right Hand, flushes well. Discharge planing to home, will follow up on that. Side rails up x2, bed at lowest position, breaks engaged. Call light within reach. Will keep monitoring.
--- NOTE | 2018-11-14 08:36 | NUR ---
HAND-OFF: Report given to CELINA Leigh.
[2018-11-14] MEDS: Azithromycin 250mg tab ORAL SCH (09:00)
[2018-11-14] MEDS: Imdur 30mg tab ORAL SCH (09:00)
[2018-11-14 09:01] VITALS: BP 123/89
[2018-11-14] MEDS: Aspirin Baby 81mg ORAL SCH (09:01)
[2018-11-14] MEDS: Heparin 5000 units/ml inj SUBQ SCH (09:03)
--- NOTE | 2018-11-14 09:40 | NUR ---
NURSE NOTES: I called patient's daughter to find out what time daughter can make it to picker tender patient, however, the call directly go to voice mail, I left voice message and call back number. Charge nurse, Sary is aware.
--- NOTE | 2018-11-14 10:03 | NUR ---
NURSE NOTES: Patient's daughter called back, gonna be here around 1100. I [address] Munguia office to get a discharge order. Waiting to get DS order.
--- NOTE | 2018-11-14 10:14 | NUR ---
NURSE NOTES: Called Dr Munguia, waiting to get an order to DS patient.
[2018-11-14] MEDS ORDERED: Sodium Polystyrene Sulfonate 15gm Powder ORAL SCH (10:30)
--- NOTE | 2018-11-14 11:47 | Infectious Diseases Prog Note ---
Assessment/Plan Assessment/Plan 88 yo male with PMHx of DM, Asthma and CAD who presented to the ED on 11/07/17 with SOB. CAP +/- CHF or Asthma -CXR 11/10: 1. No significant change in the diffuse prominent reticular interstitial markings, which may represent pulmonary interstitial edema/CHF. 2. Interval improved aeration in bilateral lung bases. 3. Minimal blunting of the left costophrenic angle may suggest a tiny residual left effusion. -sp cx normal resp martita -influenza sc neg Aferbile leukocytosis (due to high dose steroids) CAD HTN DM Asthma PLAN - Continue Ceftriaxone #7 and Azithromycin #7/ -Ok to dc home (if received todays abx dose prior to discharge then no more abx at home; if not received, patient has already Rx for Augmentin bid for 1 day ) - 11/08/18 SP Cefepime and vancomycin- - Monitor CBC and Temps We will continue to follow the patient during this hospitalization. Subjective Allergies: Coded Allergies: No Known Allergies (Verified , 02/18/10) Subjective afebrile leukocytosis (on high dose seteroids) at 2l NC discharge planning Objective Vital Signs Last 24 Hour Vital Signs Date Time Temp Pulse Resp B/P (MAP) Pulse Ox O2 Delivery O2 Flow Rate FiO2 11/14/18 09:01 63 123/89 11/14/18 09:00 Nasal Cannula 3.0 11/14/18 09:00 123/89 11/14/18 08:00 97.0 63 20 123/89 (100) 93 11/14/18 07:29 63 20 98 Nasal Cannula 4.0 36 11/14/18 07:21 59 20 95 Nasal Cannula 4.0 36 11/14/18 07:21 Nasal Cannula 4.0 36 11/14/18 04:00 97.4 57 18 146/63 (90) 97 11/14/18 01:08 Nasal Cannula 11/14/18 01:07 60 22 95 Nasal Cannula 4.0 36 11/14/18 00:00 97.2 61 19 155/46 (82) 97 11/13/18 21:00 Nasal Cannula 3.0 Nasal Cannula 3.0 11/13/18 20:44 60 162/45 11/13/18 20:00 95 Nasal Cannula 4.0 36 11/13/18 20:00 59 24 Nasal Cannula 4.0 36 11/13/18 20:00 97.0 60 18 162/45 (84) 97 11/13/18 20:00 Nasal Cannula 4.0 36 11/13/18 16:00 97.3 60 21 157/51 (86) 94 11/13/18 13:38 61 20 99 Nasal Cannula 3.0 32 11/13/18 13:28 61 20 96 Nasal Cannula 3.0 32 11/13/18 12:00 97.4 62 20 140/60 (86) 93 Height (Feet): 6 Height (Inches): 0.00 Weight (Pounds): 201 Objective Gen: NAD HEENT: NCAT, MMM, EOMI LUNGS: Course B/L , No W CARDS: RRR, S1, S2, No M/R/G, ABD: Soft, Obese, NT, ND, + BS NEURO: A/O x 3, Strength and sensation grossly intact. Laboratory Tests Test 11/14/18 07:19 White Blood Count 12.8 K/UL (4.8-10.8) #H Red Blood Count 4.02 M/UL (4.70-6.10) L Hemoglobin 12.4 G/DL (14.2-18.0) L Hematocrit 36.9 % (42.0-52.0) L Mean Corpuscular Volume 92 FL (80-99) Mean Corpuscular Hemoglobin 30.9 PG (27.0-31.0) Mean Corpuscular Hemoglobin Concent 33.6 G/DL (32.0-36.0) Red Cell Distribution Width 12.7 % (11.6-14.8) Platelet Count 130 K/UL (150-450) L Mean Platelet Volume 10.5 FL (6.5-10.1) H Neutrophils (%) (Auto) % (45.0-75.0) Lymphocytes (%) (Auto) % (20.0-45.0) Monocytes (%) (Auto) % (1.0-10.0) Eosinophils (%) (Auto) % (0.0-3.0) Basophils (%) (Auto) % (0.0-2.0) Differential Total Cells Counted 100 Neutrophils % (Manual) 93 % (45-75) H Lymphocytes % (Manual) 4 % (20-45) L Monocytes % (Manual) 3 % (1-10) Eosinophils % (Manual) 0 % (0-3) Basophils % (Manual) 0 % (0-2) Band Neutrophils 0 % (0-8) Platelet Estimate Decreased L Platelet Morphology Normal Red Blood Cell Morphology Normal Sodium Level 137 MMOL/L (136-145) Potassium Level 5.3 MMOL/L (3.5-5.1) H Chloride Level 104 MMOL/L (98-107) Carbon Dioxide Level 23 MMOL/L (21-32) Anion Gap 10 mmol/L (5-15) Blood Urea Nitrogen 70 mg/dL (7-18) H Creatinine 2.2 MG/DL (0.55-1.30) H Estimat Glomerular Filtration Rate mL/min (>60) Glucose Level 158 MG/DL (74-106) H Calcium Level 8.6 MG/DL (8.5-10.1) Current Medications Medications (Trade) Dose Ordered Sig/Nathan Route PRN Reason Start Time Stop Time Status Last Admin Dose Admin Acetaminophen (Tylenol) 650 mg Q4H PRN ORAL fever 11/13/18 03:45 12/08/18 07:44 Albuterol/ Ipratropium (Albuterol/ Ipratropium) 3 ml Q6HRT HHN 11/13/18 01:00 11/15/18 18:59 11/14/18 07:20 Allopurinol (Allopurinol) 150 mg DAILY ORAL 11/13/18 09:00 12/09/18 08:59 11/14/18 09:00 Amiodarone HCl (Cordarone) 100 mg Q24H ORAL 11/13/18 21:00 12/08/18 20:59 11/13/18 20:45 Aspirin (ASA) 162 mg DAILY ORAL 11/13/18 09:00 12/08/18 14:29 11/14/18 09:01 Azithromycin (Zithromax) 500 mg DAILY ORAL 11/13/18 12:15 11/14/18 23:59 11/14/18 09:00 Carvedilol (Coreg) 3.125 mg EVERY 12 HOURS ORAL 11/13/18 09:00 12/08/18 08:59 11/14/18 09:01 Ceftriaxone Sodium 1 gm/ Dextrose 55 ml @ 110 mls/hr Q24H IVPB 11/13/18 13:00 11/14/18 12:59 11/13/18 13:58 Heparin Sodium (Porcine) (Heparin 5000 units/ml) 5,000 units EVERY 12 HOURS SUBQ 11/13/18 09:00 12/08/18 08:59 11/14/18 09:03 Isosorbide Mononitrate (Imdur) 30 mg DAILY ORAL 11/13/18 09:00 12/09/18 08:59 11/14/18 09:00 Methylprednisolone Sodium Succinate (Solu-MEDROL) 40 mg Q8HR IVP 11/13/18 06:00 12/12/18 13:59 11/14/18 05:40 Nitroglycerin (Ntg) 0.4 mg Q5M PRN SL Prn Chest Pain 11/13/18 00:00 12/08/18 07:44 Ondansetron HCl (Zofran) 4 mg Q6H PRN IVP Nausea & Vomiting 11/13/18 01:45 12/08/18 07:44 Pantoprazole (Protonix) 40 mg DAILY ORAL 11/13/18 09:00 12/09/18 08:59 11/14/18 09:01 Polyethylene Glycol (Miralax) 17 gm DAILYPRN PRN ORAL Constipation 11/13/18 07:45 12/08/18 07:44 Pravastatin Sodium (Pravachol) 40 mg BEDTIME ORAL 11/13/18 21:00 12/08/18 20:59 11/13/18 20:45 Promethazine HCl/ Codeine (Phenergan with Codeine) 5 ml Q4H PRN ORAL For Cough 11/13/18 03:45 12/08/18 07:44 11/14/18 02:53 Temazepam (Restoril) 15 mg HSPRN PRN ORAL Insomnia 11/13/18 07:45 11/15/18 07:44 11/13/18 20:43 Cassandra Staley M.D. Nov 14, 2018 11:47
--- NOTE | 2018-11-14 12:23 | NUR ---
NURSE NOTES: Patient discharged around 1130 accompanied by daughter. Patient stable, no sign of shortness of breath, or chest pain. Patient belongings signed by patient patient's daughter. Prescription give, kept copy on file. Patient teaching given. IV access removed upon discharge. Name tag removed. Patient left the floor by wheelchair, accompanied by RN and daughter. Patient was stable.
--- NOTE | 2018-11-14 12:33 | Internal Med Progress Note ---
Subjective Date of Service: Nov 14, 2018 Physician Name Lisandro Munguia Attending Physician Tobin Medel MD Current Medications Medications (Trade) Dose Ordered Sig/Nathan Route PRN Reason Start Time Stop Time Status Last Admin Dose Admin Acetaminophen (Tylenol) 650 mg Q4H PRN ORAL fever 11/13/18 03:45 12/08/18 07:44 Albuterol/ Ipratropium (Albuterol/ Ipratropium) 3 ml Q6HRT HHN 11/13/18 01:00 11/15/18 18:59 11/14/18 07:20 Allopurinol (Allopurinol) 150 mg DAILY ORAL 11/13/18 09:00 12/09/18 08:59 11/14/18 09:00 Amiodarone HCl (Cordarone) 100 mg Q24H ORAL 11/13/18 21:00 12/08/18 20:59 11/13/18 20:45 Aspirin (ASA) 162 mg DAILY ORAL 11/13/18 09:00 12/08/18 14:29 11/14/18 09:01 Azithromycin (Zithromax) 500 mg DAILY ORAL 11/13/18 12:15 11/14/18 23:59 11/14/18 09:00 Carvedilol (Coreg) 3.125 mg EVERY 12 HOURS ORAL 11/13/18 09:00 12/08/18 08:59 11/14/18 09:01 Ceftriaxone Sodium 1 gm/ Dextrose 55 ml @ 110 mls/hr Q24H IVPB 11/13/18 13:00 11/14/18 12:59 11/13/18 13:58 Heparin Sodium (Porcine) (Heparin 5000 units/ml) 5,000 units EVERY 12 HOURS SUBQ 11/13/18 09:00 12/08/18 08:59 11/14/18 09:03 Isosorbide Mononitrate (Imdur) 30 mg DAILY ORAL 11/13/18 09:00 12/09/18 08:59 11/14/18 09:00 Methylprednisolone Sodium Succinate (Solu-MEDROL) 40 mg Q8HR IVP 11/13/18 06:00 12/12/18 13:59 11/14/18 05:40 Nitroglycerin (Ntg) 0.4 mg Q5M PRN SL Prn Chest Pain 11/13/18 00:00 12/08/18 07:44 Ondansetron HCl (Zofran) 4 mg Q6H PRN IVP Nausea & Vomiting 11/13/18 01:45 12/08/18 07:44 Pantoprazole (Protonix) 40 mg DAILY ORAL 11/13/18 09:00 12/09/18 08:59 11/14/18 09:01 Polyethylene Glycol (Miralax) 17 gm DAILYPRN PRN ORAL Constipation 11/13/18 07:45 12/08/18 07:44 Pravastatin Sodium (Pravachol) 40 mg BEDTIME ORAL 11/13/18 21:00 12/08/18 20:59 11/13/18 20:45 Promethazine HCl/ Codeine (Phenergan with Codeine) 5 ml Q4H PRN ORAL For Cough 11/13/18 03:45 12/08/18 07:44 11/14/18 02:53 Temazepam (Restoril) 15 mg HSPRN PRN ORAL Insomnia 11/13/18 07:45 11/15/18 07:44 11/13/18 20:43 Allergies: Coded Allergies: No Known Allergies (Verified , 02/18/10) ROS Limited/Unobtainable: No Constitutional: Reports: no symptoms HEENT: Reports: no symptoms Cardiovascular: Reports: no symptoms Respiratory: Reports: no symptoms Gastrointestinal/Abdominal: Reports: no symptoms Genitourinary: Reports: no symptoms Neurologic/Psychiatric: Reports: no symptoms Subjective 88 YO M admitted with shortness of breath, now pneumonia. Cover for Int [facility]-Dr Medel. Tolerating nasal canula. Objective Last Vital Signs Date Time Temp Pulse Resp B/P (MAP) Pulse Ox O2 Delivery O2 Flow Rate FiO2 11/14/18 09:01 63 123/89 11/14/18 09:00 Nasal Cannula 3.0 11/14/18 08:00 97.0 20 93 11/14/18 07:29 36 Laboratory Tests Test 11/14/18 07:19 White Blood Count 12.8 K/UL (4.8-10.8) #H Red Blood Count 4.02 M/UL (4.70-6.10) L Hemoglobin 12.4 G/DL (14.2-18.0) L Hematocrit 36.9 % (42.0-52.0) L Mean Corpuscular Volume 92 FL (80-99) Mean Corpuscular Hemoglobin 30.9 PG (27.0-31.0) Mean Corpuscular Hemoglobin Concent 33.6 G/DL (32.0-36.0) Red Cell Distribution Width 12.7 % (11.6-14.8) Platelet Count 130 K/UL (150-450) L Mean Platelet Volume 10.5 FL (6.5-10.1) H Neutrophils (%) (Auto) % (45.0-75.0) Lymphocytes (%) (Auto) % (20.0-45.0) Monocytes (%) (Auto) % (1.0-10.0) Eosinophils (%) (Auto) % (0.0-3.0) Basophils (%) (Auto) % (0.0-2.0) Differential Total Cells Counted 100 Neutrophils % (Manual) 93 % (45-75) H Lymphocytes % (Manual) 4 % (20-45) L Monocytes % (Manual) 3 % (1-10) Eosinophils % (Manual) 0 % (0-3) Basophils % (Manual) 0 % (0-2) Band Neutrophils 0 % (0-8) Platelet Estimate Decreased L Platelet Morphology Normal Red Blood Cell Morphology Normal Sodium Level 137 MMOL/L (136-145) Potassium Level 5.3 MMOL/L (3.5-5.1) H Chloride Level 104 MMOL/L (98-107) Carbon Dioxide Level 23 MMOL/L (21-32) Anion Gap 10 mmol/L (5-15) Blood Urea Nitrogen 70 mg/dL (7-18) H Creatinine 2.2 MG/DL (0.55-1.30) H Estimat Glomerular Filtration Rate mL/min (>60) Glucose Level 158 MG/DL (74-106) H Calcium Level 8.6 MG/DL (8.5-10.1) Intake and Output 11/13/18 11/14/18 19:00 07:00 Intake Total 775 ml 240 ml Output Total 500 ml 400 ml Balance 275 ml -160 ml Intake Oral 720 ml 240 ml IV Total 55 ml Output Urine Total 500 ml 400 ml Objective PHYSICAL EXAMINATION: GENERAL: The patient is a well-developed and well-nourished white male, in moderate respiratory distress. HEENT: Eyes, pupils are equal and responsive to light and accommodation. Extraocular movements are intact. NECK: Supple without lymphadenopathy. CHEST: Nasal canula; Lungs decreased breath sounds at bilateral bases with diffuse wheezes bilaterally. ABDOMEN: Soft, nontender, and nondistended. Positive bowel sounds. No evidence of hepatosplenomegaly. Currently, no rebound or guarding noted. EXTREMITIES: Negative for clubbing, cyanosis, or edema. RECTAL/GENITAL: Refused. NEUROLOGIC: Cranial nerves II through XII are grossly intact without focal deficits. Motor strength is 5/5 bilaterally. Deep tendon reflexes are 2+ plantar. Assessment/Plan Problem List: (1) Pneumonia Assessment & Plan: Continue ceftriaxone and azithromycin per ID (2) Respiratory distress Assessment & Plan: Tolerating nasal canula; May require BIPAP (3) Pulmonary edema (4) COPD (chronic obstructive pulmonary disease) Assessment & Plan: See pulmonary note. (5) Diabetes mellitus (6) HTN (hypertension) (7) Acute on chronic renal failure Assessment & Plan: See nephrology note (8) CHF (congestive heart failure) Assessment & Plan: await echo results. See cardiology note. Status: stable Assessment/Plan Discharge today when patient daughter is available to transfer patient home Lisandro Munguia MD Nov 14, 2018 12:33
--- NOTE | 2018-11-14 14:29 | Nephrology Progress Note ---
Assessment/Plan Problem List: (1) Acute on chronic renal failure (2) History of unilateral nephrectomy (3) Low iron stores (4) Non-ST elevation (NSTEMI) myocardial infarction (5) CAD (coronary artery disease) Assessment Renal insufficiency due to combination of ONE functioning kidney and underlying DM and HTN Proteinuria indicative of Nephropathy -. Chronic obstructive pulmonary disease. -. Diabetes type 2. -. Hypertension. -. Coronary artery disease. elevated troponin Plan Plan: kayexelate Optimize cardiac and Pulmonary status- monitor renal parameters- Avoid Nephrotoxics- urine studies Allopurinol Nitrate ASA per pmd Subjective ROS Limited/Unobtainable: No Interval Events/Complaints seen 9 am Constitutional: Reports: malaise Objective Objective Last 24 Hour Vital Signs Date Time Temp Pulse Resp B/P (MAP) Pulse Ox O2 Delivery O2 Flow Rate FiO2 11/14/18 09:01 63 123/89 11/14/18 09:00 Nasal Cannula 3.0 11/14/18 09:00 123/89 11/14/18 08:00 97.0 63 20 123/89 (100) 93 11/14/18 07:29 63 20 98 Nasal Cannula 4.0 36 11/14/18 07:21 59 20 95 Nasal Cannula 4.0 36 11/14/18 07:21 Nasal Cannula 4.0 36 11/14/18 04:00 97.4 57 18 146/63 (90) 97 11/14/18 01:08 Nasal Cannula 11/14/18 01:07 60 22 95 Nasal Cannula 4.0 36 11/14/18 00:00 97.2 61 19 155/46 (82) 97 11/13/18 21:00 Nasal Cannula 3.0 Nasal Cannula 3.0 11/13/18 20:44 60 162/45 11/13/18 20:00 95 Nasal Cannula 4.0 36 11/13/18 20:00 59 24 Nasal Cannula 4.0 36 11/13/18 20:00 97.0 60 18 162/45 (84) 97 11/13/18 20:00 Nasal Cannula 4.0 36 11/13/18 16:00 97.3 60 21 157/51 (86) 94 Intake and Output 11/13/18 11/14/18 19:00 07:00 Intake Total 775 ml 240 ml Output Total 500 ml 400 ml Balance 275 ml -160 ml Intake Oral 720 ml 240 ml IV Total 55 ml Output Urine Total 500 ml 400 ml Laboratory Tests 11/14/18 07:19: White Blood Count 12.8#H, Red Blood Count 4.02L, Hemoglobin 12.4L, Hematocrit 36.9L, Mean Corpuscular Volume 92, Mean Corpuscular Hemoglobin 30.9, Mean Corpuscular Hemoglobin Concent 33.6, Red Cell Distribution Width 12.7, Platelet Count 130L, Mean Platelet Volume 10.5H, Neutrophils (%) (Auto) , Lymphocytes (% ) (Auto) , Monocytes (%) (Auto) , Eosinophils (%) (Auto) , Basophils (%) (Auto) , Differential Total Cells Counted 100, Neutrophils % (Manual) 93H, Lymphocytes % (Manual) 4L, Monocytes % (Manual) 3, Eosinophils % (Manual) 0, Basophils % ( Manual) 0, Band Neutrophils 0, Platelet Estimate DecreasedL, Platelet Morphology Normal, Red Blood Cell Morphology Normal, Sodium Level 137, Potassium Level 5.3H, Chloride Level 104, Carbon Dioxide Level 23, Anion Gap 10 , Blood Urea Nitrogen 70H, Creatinine 2.2H, Estimat Glomerular Filtration Rate , Glucose Level 158H, Calcium Level 8.6 Height (Feet): 6 Height (Inches): 0.00 Weight (Pounds): 201 General Appearance: no apparent distress Respiratory/Chest: decreased breath sounds Abdomen: soft Objective no change Jeff Blanco MD Nov 14, 2018 14:29
--- NOTE | 2018-11-15 12:56 | Discharge Summary ---
Discharge Summary Discharge Summary _ DATE OF ADMISSION: 11/08/2018 DATE OF DISCHARGE: 11/14/2018 DISCHARGED BY: Dr. Lisandro Munguia CONSULTANTS: Dr. Jeff Andino [facility]: Patient is an 88-year-old white male, who presented with chief complaint of respiratory distress and shortness of breath. Patient has history of chronic obstructive pulmonary disease. The patient became increasingly short of breath over the last couple of days. He presented to [facility] emergency room for further evaluation. He has past medical history significant for COPD, type 2 diabetes, hypertension and coronary artery disease. Per EMS, patient was noted to have labored breathing and was started on CPAP. He was given nebulizer treatment. On arrival to ED, there was improvement. He was saturating 99% on 40% FiO2. Respiratory status improved, BiPAP was discontinued. Blood work did not show any leukocytosis, hemoglobin and hematocrit were stable. BUN was elevated to 32, creatinine 2.2. Troponin was elevated 0.153, proBNP was elevated to 3778. EKG showed normal sinus rhythm with no acute ischemic changes. Chest x-ray showed bilateral mid and lower lung infiltrates versus edema. He was given aspirin. He was started on antibiotics. He was given IV Lasix. He was then admitted for evaluation of respiratory failure/pneumonia, renal failure, heart failure, COPD, diabetes and hypertension. He was continued on IV antibiotics. ID specialist was consulted. Cefepime and vancomycin were discontinued. He was given ceftriaxone and azithromycin. Influenza screen was negative [employer] was consulted. Cardiac enzymes were monitored. Electrocardiogram showed sinus rhythm with nonspecific ST and T wave abnormalities with biphasic T waves in aVF and T wave inversion in V3. He was given aspirin, Coreg and Imdur. Lipid panel was checked. He was started on pravastatin 40 mg nightly. [employer] was consulted. Patient has renal insufficiency due to combination of one functioning kidney and underlying diabetes mellitus and hypertension. Proteinuria seen was indicative of nephropathy. Uric acid was elevated, he was given allopurinol. He complained of chest pain. EKG was unchanged. Troponin levels were downtrending. Echocardiogram done showed moderate aortic stenosis, mild mitral stenosis, PASP in the 50s. Venous duplex negative. He was seen by cardiothoracic specialist. Patient was complaining of chest discomfort and dizziness, and is status post aortic valve replacement as well as CABG x2. He is reverse saphenous vein graft for almost 9 years old; stenosis possible. Due to his age, patient will be on extremely difficult, and most likely prohibitive surgical risk, however, a percutaneous intervention can be considered. He was recommended follow-up as outpatient. He completed antibiotic treatment. Culture did not isolate any growth. Sputum culture with normal upper respiratory martita. Urine culture with no growth. He was discharged home. 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 DISCHARGE MEDICATIONS: Refer to Discharge Medication List. DISCHARGE INSTRUCTIONS: Follow-up in a week. I have been assigned to dictate discharge summary on this account, and I was not involved in the patient's management. Sayda Gonsalez NP Nov 15, 2018 12:56
--- NOTE | 2018-11-15 19:48 | Cardiology Report ---
APPROVED REPORT EKG Measurement Heart [id number] Sinus bradycardia with 1st degree AV block Nonspecific ST abnormality Abnormal ECG
== END 2018-11-14 11:45 | disposition home or self-care (01) | DRG 193 ==
LOC: EDBD 00:45 → EMR 01:02 → 2W 01:30 → EDBEDREQ 02:26 → 3E 11-12 23:29
PROC: 5A09357 Assistance with Respiratory Ventilation, Less than 24 Consecutive Hours, Continuous Positive Airway Pressure (ICD-10-PCS; principal; 2018-11-08)
DX: J18.9 Pneumonia, unspecified organism (principal); J96.00 Acute respiratory failure, unspecified whether with hypoxia or hypercapnia; I50.33 Acute on chronic diastolic (congestive) heart failure; I13.0 Hypertensive heart and chronic kidney disease with heart failure and stage 1 through stage 4 chronic kidney disease, or unspecified chronic kidney disease; J44.9 Chronic obstructive pulmonary disease, unspecified; Z95.1 Presence of aortocoronary bypass graft; I25.10 Atherosclerotic heart disease of native coronary artery without angina pectoris; E11.9 Type 2 diabetes mellitus without complications; Z95.3 Presence of xenogenic heart valve; I44.0 Atrioventricular block, first degree; J98.01 Acute bronchospasm; N18.9 Chronic kidney disease, unspecified; E11.22 Type 2 diabetes mellitus with diabetic chronic kidney disease; R74.9 Abnormal serum enzyme level, unspecified; Z87.891 Personal history of nicotine dependence; E78.5 Hyperlipidemia, unspecified; G62.9 Polyneuropathy, unspecified; M17.11 Unilateral primary osteoarthritis, right knee; Z85.528 Personal history of other malignant neoplasm of kidney; Z90.5 Acquired absence of kidney; I35.0 Nonrheumatic aortic (valve) stenosis; I34.2 Nonrheumatic mitral (valve) stenosis
CPT/HCPCS: 36415; 36600; 71045; 80048; 80053; 80061; 80202; 81001; 81003; 82550; 82553; 82607; 82728; 82746; 82803; 82977; 83036; 83540; 83550; 83605; 83735; 83880; 84100; 84133; 84300; 84443; 84484; 84550; 85007; 85025; 85651; 86140; 86710; 87040; 87070; 87086; 87205; 89050; 93005; 93306; 93970; 94640; 94664; 94760; 96365; 96368; 96375; 99285; J7620